=== PATIENT | female | born 1985 | race Caucasian/White ===

== ENCOUNTER → 2018-02-07 09:02 | Outpatient (CLI) | payer MEDICAID, SELFPAY ==
[2018-02-07 11:09] LABS: Anion Gap 5 (5-15); BUN 11 mg/dL (7-18); BUN/Creat Ratio 13.7 RATIO (10-20); Calcium,Total 8.9 mg/dL (8.5-10.1); Chloride 104 mmol/L (98-107); Cholesterol 184 mg/dL (200); EST Glomerular Filtration Rate 87 mL/min (>60); Est Glom Filt Rate - Afr Amer 105 mL/min (>60); Glucose 82 mg/dL (74-106); High Density Lipoprotein 47 mg/dL; Potassium 3.8 mmol/L (3.5-5.1); Sodium Level 137 mmol/L (136-145); Triglycerides 110 mg/dL; Very Low Density Lipoprotein 22 mg/dL (5-40)
== END ==
PROVIDERS: Family Provider Family Medicine; PCP Family Medicine; Visit Provider Family Medicine
DX: I10 Essential (primary) hypertension (principal)
CPT/HCPCS: 36415; 80048; 80061

== ENCOUNTER → 2018-08-15 08:26 | Outpatient (CLI) | payer MEDICAID, SELFPAY ==
[2017-03-28 05:05] VITALS: BMI 28.3
[2018-08-15 10:29] LABS: Anion Gap 8 (5-15); BUN 14 mg/dL (7-18); BUN/Creat Ratio 16.7 RATIO (10-20); Calcium,Total 8.9 mg/dL (8.5-10.1); Chloride 104 mmol/L (98-107); Creatinine, Serum 0.84 mg/dL (0.55-1.02); EST Glomerular Filtration Rate 82 mL/min (>60); Est Glom Filt Rate - Afr Amer 99 mL/min (>60); Glucose 80 mg/dL (74-106); Potassium 3.7 mmol/L (3.5-5.1); Sodium Level 140 mmol/L (136-145)
== END ==
PROVIDERS: Family Provider Family Medicine; PCP Family Medicine; Visit Provider Family Medicine
DX: I10 Essential (primary) hypertension (principal)
CPT/HCPCS: 36415; 80048

== ENCOUNTER → 2019-11-04 08:29 | Outpatient (CLI) | payer OTHER, MEDICAID, SELFPAY ==
[2017-03-28 05:05] VITALS: BMI 28.3
[2019-11-04 10:32] LABS: Anion Gap 7 (5-15); BUN 14 mg/dL (7-18); BUN/Creat Ratio 14.8 RATIO (10-20); Calcium,Total 9.1 mg/dL (8.5-10.1); Chloride 103 mmol/L (98-107); Cholesterol 182 mg/dL (200); Creatinine, Serum 0.94 mg/dL (0.55-1.02); EST Glomerular Filtration Rate 71 mL/min (>60); Est Glom Filt Rate - Afr Amer 86 mL/min (>60); Glucose 87 mg/dL (74-106); High Density Lipoprotein 53 mg/dL; Potassium 3.2 mmol/L (3.5-5.1); Sodium Level 139 mmol/L (136-145); Triglycerides 153 mg/dL; Very Low Density Lipoprotein 31 mg/dL (5-40)
== END ==
PROVIDERS: PCP Family Medicine; Referring Provider Family Medicine; Visit Provider Family Medicine
DX: I10 Essential (primary) hypertension (principal)
CPT/HCPCS: 36415; 80048; 80061

== ENCOUNTER → 2020-04-18 10:17 | Outpatient (CLI) | payer OTHER, SELFPAY ==
[2017-03-28 05:05] VITALS: BMI 28.3
[2020-04-18 13:21] LABS: Anion Gap 7 (5-15); BUN 14 mg/dL (7-18); BUN/Creat Ratio 18.9 RATIO (10-20); Calcium,Total 9.1 mg/dL (8.5-10.1); Chloride 102 mmol/L (98-107); Creatinine, Serum 0.74 mg/dL (0.55-1.02); EST Glomerular Filtration Rate 94 mL/min (>60); Est Glom Filt Rate - Afr Amer 113 mL/min (>60); Glucose 84 mg/dL (74-106); Potassium 3.7 mmol/L (3.5-5.1); Sodium Level 138 mmol/L (136-145)
== END ==
PROVIDERS: PCP Family Medicine; Referring Provider Family Medicine; Visit Provider Family Medicine
DX: I10 Essential (primary) hypertension (principal)
CPT/HCPCS: 36415; 80048

== ENCOUNTER → 2020-10-19 08:30 | Outpatient (CLI) | payer OTHER, SELFPAY ==
[2017-03-28 05:05] VITALS: BMI 28.3
[2020-10-19 10:30] LABS: Anion Gap 2 (5-15); BUN 15 mg/dL (7-18); BUN/Creat Ratio 18.4 RATIO (10-20); Calcium,Total 8.9 mg/dL (8.5-10.1); Chloride 107 mmol/L (98-107); Cholesterol 185 mg/dL (200); Creatinine, Serum 0.82 mg/dL (0.55-1.02); EST Glomerular Filtration Rate 84 mL/min (>60); Est Glom Filt Rate - Afr Amer 101 mL/min (>60); Glucose 86 mg/dL (74-106); High Density Lipoprotein 63 mg/dL; Potassium 3.6 mmol/L (3.5-5.1); Sodium Level 138 mmol/L (136-145); Triglycerides 65 mg/dL; Very Low Density Lipoprotein 13 mg/dL (5-40)
== END ==
PROVIDERS: PCP Family Medicine; Referring Provider Family Medicine; Visit Provider Family Medicine
DX: I10 Essential (primary) hypertension (principal)
CPT/HCPCS: 36415; 80048; 80061

== ENCOUNTER → 2021-04-17 08:32 | Outpatient (CLI) | payer OTHER, SELFPAY ==
[2017-03-28 05:05] VITALS: BMI 28.3
[2021-04-17 10:45] LABS: Anion Gap 9 (5-15); BUN 11 mg/dL (7-18); BUN/Creat Ratio 14.2 RATIO (10-20); Calcium,Total 9.1 mg/dL (8.5-10.1); Chloride 104 mmol/L (98-107); Cholesterol 199 mg/dL (200); Creatinine, Serum 0.78 mg/dL (0.55-1.02); EST Glomerular Filtration Rate 88 mL/min (>60); Est Glom Filt Rate - Afr Amer 107 mL/min (>60); Glucose 89 mg/dL (74-106); High Density Lipoprotein 64 mg/dL; Potassium 3.6 mmol/L (3.5-5.1); Sodium Level 138 mmol/L (136-145); Triglycerides 107 mg/dL; Very Low Density Lipoprotein 21 mg/dL (5-40)
== END ==
LOC: MFPLAB 08:33
PROVIDERS: PCP Family Medicine; Referring Provider Family Medicine; Visit Provider Family Medicine
DX: I10 Essential (primary) hypertension (principal)
CPT/HCPCS: 36415; 80048; 80061

== ENCOUNTER → 2022-04-25 | Outpatient (CLI) | payer OTHER, SELFPAY ==
[2022-05-01 13:24] LABS: HPV APTIMA, High Risk Negative (Negative)
== END | disposition home or self-care (01) ==
LOC: LABSPEC 11:54
PROVIDERS: Visit Provider Student in an Organized Health Care Education/Training Program
DX: Z12.4 Encounter for screening for malignant neoplasm of cervix (principal)
CPT/HCPCS: 87624; 88175; G0145

== ENCOUNTER → 2022-05-03 | Outpatient (CLI) | payer OTHER, SELFPAY ==
--- NOTE | 2022-05-03 09:21 | US_ITS ---
STUDY: ULTRASOUND BREAST - RIGHT REASON FOR EXAM: Female, 37 years old. Asymmetrical density in the upper outer quadrant of the right breast on mammogram. TECHNIQUE: Axial and longitudinal images of the RIGHT breast were performed with a high resolution ultrasound transducer. # OF IMAGES: 41 COMPARISON: Comparison is made with prior mammogram done earlier in the day. FINDINGS: RIGHT Breast: The upper outer quadrant of the right breast was examined with ultrasound. There is evidence of fibroglandular tissue. No solid or cystic masses seen. IMPRESSION: Unremarkable sonogram of the upper outer quadrant of the right breast. ASSESSMENT CATEGORY: BIRADS Category 1: Negative. A letter regarding these results will be sent to the patient by the facility within 30 days. Electronically Signed: Damien Lewis MD at 12:51 EDT , STUDY: ULTRASOUND BREAST - LEFT REASON FOR EXAM: Female, 37 years old. Palpable lump in the inferior central portion of the left breast. TECHNIQUE: Axial and longitudinal images of the LEFT breast were performed with a high resolution ultrasound transducer. # OF IMAGES: 41 COMPARISON: Comparison is made with prior mammogram done earlier today. FINDINGS: LEFT Breast: Sonographic imaging was performed along the inferior aspect of the left breast. No sonographic abnormality is seen. US/Breast Limited Unilateral IMPRESSION: No sonographic abnormality is seen. ASSESSMENT CATEGORY: BIRADS Category 1: Negative. A letter regarding these results will be sent to the patient by the facility within 30 days. Electronically Signed: Damien Lewis MD at 12:53 EDT ,
--- NOTE | 2022-05-03 09:21 | BI_ITS ---
MAMMOGRAPHY - BILATERAL DIAGNOSTIC REASON FOR EXAM: Female, 37 years old. Palpable lump in the inferior central portion of the left breast. PERTINENT HISTORY: Non-contributory. TECHNIQUE: Digital bilateral breast ashly (3D mammographic acquisition) in the CC and MLO projections. 2-D mediolateral oblique (MLO) and craniocaudad (CC) views of both breasts were obtained. CAD: Full Field Digital Mammography with Computer Added Detection was performed. COMPARISON: None. Baseline examination. FINDINGS: Breast Composition: The breasts are heterogeneously dense, which may obscure small masses. There are no dominant masses or suspicious calcifications. Asymmetrical breast tissue is seen in the upper lateral aspect of the right breast. Correlation with ultrasound recommended. No other significant abnormalities are identified. BI/DIAG MAMM W/CAD, BILAT IMPRESSION: Negative diagnostic mammogram. With the patient''s history of a palpable lump in the inferior central portion of the left breast, correlation with ultrasound is recommended. ASSESSMENT CATEGORY: BIRADS Category 0: Incomplete. Need additional imaging evaluation. A letter regarding these results will be sent to the patient by the facility within 30 days. Approximately 10% of breast cancers are not detected by mammography. A normal mammogram should not delay biopsy of a clinically suspicious abnormality. Electronically Signed: Damien Lewis MD at 10:47 EDT ,
== END | disposition home or self-care (01) ==
LOC: OPBI 09:16
PROVIDERS: PCP Family Medicine; Visit Provider Student in an Organized Health Care Education/Training Program
DX: N63.20 Unspecified lump in the left breast, unspecified quadrant (principal); R92.8 Other abnormal and inconclusive findings on diagnostic imaging of breast
CPT/HCPCS: 76642; 77062; 77066; G0279

== ENCOUNTER 2023-01-28 22:59 | Emergency (ER) | payer OTHER, SELFPAY ==
[2023-01-28 23:00] VITALS: BP 196/114; PULSE 67; RESP 18; TEMP 36.4; O2SAT 100; BMI 30.4
--- NOTE | 2023-01-28 23:28 | EDS_ITS ---
HPI HPI - GI History of Present Illness Chief Complaint: Abd Pain Narrative Narrative: 37-year-old female presenting with left upper quadrant/left flank pain. She states it started yesterday while she was working. It kind of came and went throughout the day. She states it is kind of a dull ache and feels like a pressure. She recalls that it feels like her gallbladder pain only is on the wrong side. She states the pain comes and goes. She states she is queasy at times. No fevers. No diarrhea or constipation. No urinary or vaginal complaints. No history of kidney stones. She had a tubal ligation so she is not concerned for . PFSH PFSH Home Medications multivitamin (Daily Multiple tablet) 1 ea PO DAILY 03/28/17 [History Last Taken Unknown] losartan 50 mg-hydrochlorothiazide 12.5 mg tablet 1 tab PO DAILY 01/28/23 [History Last Taken Unknown] Allergy/AdvReac Type Severity Reaction Status Date / Time No Known Allergies Allergy Verified 11/19/22 11:09 Social History Smoking Status: Never smoker ROS ROS ED Constitutional Constitutional ED: Denies chills or fever(s) ENT ENT ED: Denies rhinorrhea or sore throat Cardiovascular Cardiovascular: Denies chest pain or palpitations Respiratory/Chest Respiratory/Chest: Denies cough or dyspnea Gastrointestinal Gastrointestinal: Reports abdominal pain and nausea; Denies constipation or diarrhea Genitourinary Genitourinary ED: Denies dysuria or hematuria Musculoskeletal Musculoskeletal: Denies arthralgias or back pain Integumentary Denies abscess Neurologic Neurologic: Denies headache(s) or paresthesias Psychiatric Psychiatric: Denies anxiety or depression EXAM Physical Exam Const Vital Signs: 01/28/23 23:00 Temperature 97.5 F L Temperature Source Temporal Pulse Rate 67 Respiratory Rate 18 Blood Pressure 196/114 H Blood Pressure Mean 141 Pulse Ox 100 Oxygen Delivery Method Room Air Positive well nourished General Appearance ED: Negative for pallor HEENT Reports moist mucous membranes Eyes PERRL and EOMs intact bilaterally Resp normal respiratory effort Effort and Inspection: Negative for respiratory distress Cardio regular rate and regular rhythm GI Palpation: tender LUQ Back/Spine General Back: CVA tenderness left Neuro CN's II-XII intact bilaterally Sensorium / Orientation: alert Psych mental status grossly normal and thought process normal Skin General Skin Exam: Negative for jaundice or pallor MDM MDM MDM Narrative Medical decision making narrative: Patient presenting with left upper quadrant/flank pain. Differential includes UTI, pyelonephritis, kidney stone, diverticulitis, colitis, constipation, ovarian cyst, ovarian torsion. Patient declines analgesia and denies nausea medication. She states she does not want to be here but she is here at the behest of her . She is well-appearing. Vital signs are stable and she is afebrile. CBC to assess white blood cell count, hemoglobin, platelets, differential. CMP to assess liver function, renal function, glucose, electrolytes. Lipase to assess for pancreatitis. Urinalysis to assess for UTI and occult blood. CBC and CMP unremarkable. Lipase negative. Urinalysis negative for infection or occult blood. CT of the abdomen pelvis with IV contrast was obtained and shows a nonobstructing kidney stone as well as a recently ruptured ovarian cyst. Patient counseled on findings. I believe she stable for discharge home. She will declines any analgesia or antiemetics for home. Impression: 1. Ruptured ovarian cyst 2. Left flank pain 3. nausea 4. Nephrolithiasis Lab Data Labs: Laboratory Results - last 24 hr 01/28/23 01/28/23 01/28/23 23:34 23:34 23:34 WBC 9.8 RBC 4.27 Hgb 13.0 Hct 39.2 MCV 91.8 MCH 30.4 MCHC 33.2 RDW Std Deviation 40.2 RDW Coeff of Matt 12.1 Plt Count 265 MPV 9.2 Immature Gran % (Auto) 0.200 Neut % (Auto) 55.4 Lymph % (Auto) 34.9 Morton % (Auto) 7.7 Eos % (Auto) 1.4 Baso % (Auto) 0.4 Absolute Neuts (auto) 5.5 Absolute Lymphs (auto) 3.43 Nucleated RBC % 0 Sodium 142 Potassium 3.7 Chloride 108 H Carbon Dioxide 29.0 Anion Gap 5 BUN 18 Creatinine 0.76 Estim Creat Clear Calc 82.21 Est GFR (MDRD) Af Amer 108 Est GFR (MDRD) Non-Af 89 BUN/Creatinine Ratio 23.6 H Glucose 104 Calcium 9.2 Total Bilirubin 0.30 AST 16 ALT 26 Alkaline Phosphatase 41 L Total Protein 7.2 Albumin 3.7 Globulin 3.5 Albumin/Globulin Ratio 1.1 Lipase 26 Urine Color Yellow Urine Clarity Sl. Cloudy Urine pH 7.0 Ur Specific [place] 1.010 Urine Protein Negative Urine Glucose (UA) Normal Urine Ketones Negative Urine Occult Blood Negative Urine Nitrite Negative Urine Bilirubin Negative Urine Urobilinogen Normal Ur Leukocyte Esterase Negative Urine RBC 0 SEEN Urine WBC 0 SEEN Ur Squamous Epith Cells 0-5 SEEN Amorphous Sediment 1+ Urine Bacteria 2+ Urine Mucus 0 SEEN Radiography Diagnostic Testing: Clinical Impression(s) from Imaging Studies Abdomen/Pelvis CT 01/29/23 00:04 IMPRESSION: 1. Recently ruptured left ovarian follicle with trace free pelvic fluid. Adjacent small simple appearing 2.5 cm left ovarian cyst versus dominant follicle. No additional follow-up recommended at this time. 2. Nonobstructing right nephrolithiasis. 3. Other nonurgent findings within body of report. Electronically Signed: Jesús Rose MD at 1:09 EDT , Discharge Plan Triage Chief Complaint: Abd Pain ED Provider: Tay Luna Dx/Rx/DC Orders Instructions: ED Ovarian Cyst Prescriptions: No Action multivitamin [Daily Multiple] 1 EACH tablet 1 ea PO DAILY losartan-hydrochlorothiazide 50-12.5 mg tablet 1 tab PO DAILY Primary Care Provider: Dewey Enriquez Referrals: Dewey Enriquez MD [Primary Care Provider] - Disposition Disposition: Home, Self Care
[2023-01-28 23:41] LABS: Mucous, Urine 0 SEEN /hpf (<or=2+); Red Blood Cells-Urine 0 SEEN /hpf (0-5); White Blood Cells 0 SEEN /hpf (0-5)
[2023-01-28 23:42] LABS: Absolute Lymphocyte Count 3.43 X10^3/uL (0.83-4.51); Absolute Neutrophil Count 5.5 X10^3/uL (2.0-7.7); Basophil# 0.04 X10^3/uL; Basophil% 0.4 % (0-1); Eosinophil# 0.14 X10^3/uL; Eosinophils% 1.4 % (0-5); Hematocrit 39.2 % (37-47); Lymphocyte # 3.43 X10^3/ul (0.83-4.51); Lymphocyte % 34.9 % (19-41); Mean Corp Hgb Conc 33.2 g/dL (32-36); Mean Corpuscular Hgb 30.4 pg (27.0-32.0); Mean Corpuscular Volume 91.8 fL (81-99); Mean Platelet Vol. 9.2 fl (6.2-12.0); Monocyte# 0.76 X10^3/uL; Monocyte% 7.7 % (0-10); NRBC Flagged by Analyzer 0 % (0-5); Neutrophil # 5.45 X10^3/uL (2.7-7.7); Neutrophil % 55.4 % (47-70); Platelet Count 265 K/mm3 (150-450); RBC Distribution Width CV 12.1 % (11.6-14.6); RBC Distribution Width SD 40.2 fl (35.1-43.9); Red Blood Count 4.27 M/mm3 (4.2-5.4); White Blood Count 9.8 K/mm3 (4.4-11.0)
[2023-01-28 23:43] LABS: Color, Urine Yellow (Yellow); Glucose, Dipstick Normal (Normal); Ketone-Dipstick Negative (Negative); Leukocyte Esterase-Dipstick Negative /ul (Negative); Nitrite-Dipstick Negative (Negative); Occult Blood-Urine Negative /ul (Negative); Protein-Dipstick Negative (Negative); Urine Bilirubin Dipstick Negative (Negative); Urine Clarity Sl. Cloudy (Clear); Urine Urobilinogen Normal (Normal)
[2023-01-28 23:51] LABS: Amorphous Sediment 1+; Bacteria 2+ /hpf (None Seen); Squamous Epithelial Cells - UA 0-5 SEEN /hpf (5-10)
[2023-01-29 00:01] LABS: ALB/GLOB Ratio 1.1 RATIO (0.9-2.4); AST(SGOT) 16 U/L (15-37); Alanine Aminotransfer ALT/SGPT 26 U/L (13-56); Albumin, Serum 3.7 g/dL (3.2-5.0); Alkaline Phosphatase 41 U/L (45-117); Anion Gap 5 (5-15); BUN 18 mg/dL (7-18); BUN/Creat Ratio 23.6 RATIO (10-20); Calcium,Total 9.2 mg/dL (8.5-10.1); Chloride 108 mmol/L (98-107); Creatinine, Serum 0.76 mg/dL (0.55-1.02); EST Glomerular Filtration Rate 89 mL/min (>60); Est Glom Filt Rate - Afr Amer 108 mL/min (>60); Estimated Creatinine Clearance 82.21 ml/min; Globulin 3.5 g/dL (2.2-4.2); Glucose 104 mg/dL (74-106); Lipase 26 U/L (13-75); Potassium 3.7 mmol/L (3.5-5.1); Protein, Total 7.2 g/dL (6.4-8.2); Sodium Level 142 mmol/L (136-145)
--- NOTE | 2023-01-29 00:04 | CT_ITS ---
INDICATION: luq pain EXAMINATION: CT Abdomen And Pelvis W/ Contrast Injection TECHNIQUE: Helically acquired images were obtained of the abdomen and pelvis following IV contrast. 2-D reconstructions reviewed. A radiation dose optimization technique was used for this scan. IV Contrast dosage and agent: 100 cc [id number] Oral contrast: None. COMPARISON: None. FINDINGS: LOWER CHEST: No acute findings within the imaged lung bases. Heart size within normal limits. LIVER: Homogeneous. No concerning lesion. GALLBLADDER AND BILIARY TREE: No radiopaque gallstones or pericholecystic edema demonstrated. Gallbladder phrygian cap noted. No significant biliary ductal dilation. PANCREAS: No discrete mass or peripancreatic edema. SPLEEN: Normal size without focal cystic or solid mass. ADRENAL GLANDS: Unremarkable. KIDNEYS AND URETERS: Normal renal size and position. No perinephric edema or hydronephrosis. 4 mm calcified stone within interpolar calyx right kidney. No ureteral stones identified. Small calcified pelvic phleboliths noted. Couple small, simple appearing bilateral renal cysts requiring no additional follow-up. PERITONEUM: Trace physiologic fluid within pelvis. No peritoneal free air detected. RETROPERITONEUM: No retroperitoneal mass or pathologic fluid collection. BOWEL: Normal appendix posterior to cecum within right lower quadrant. No bowel obstruction or significant bowel thickening. No focal inflammatory change. LYMPH NODES: No enlarged mesenteric or retroperitoneal lymph nodes. VESSELS: No acute findings. No abdominal aortic aneurysm. URINARY BLADDER: Unremarkable as visualized. REPRODUCTIVE ORGANS: Crenulated, rim-enhancing 1.9 cm left adnexal cystic lesion compatible with involuted follicle. Adjacent ovoid low-attenuation 2.5 cm left adnexal cyst with imperceptible wall. ABDOMINAL WALL: Small umbilical fat hernia noted. BONES: Intact with no suspicious osseous lesion. CT/Abdomen/Pelvis W IV Cont ONLY IMPRESSION: 1. Recently ruptured left ovarian follicle with trace free pelvic fluid. Adjacent small simple appearing 2.5 cm left ovarian cyst versus dominant follicle. No additional follow-up recommended at this time. 2. Nonobstructing right nephrolithiasis. 3. Other nonurgent findings within body of report. Electronically Signed: Jesús Rose MD at 1:09 EDT ,
== END 2023-01-29 01:33 | disposition home or self-care (01) ==
PROVIDERS: Emergency Provider Student in an Organized Health Care Education/Training Program; PCP Family Medicine; Visit Provider Student in an Organized Health Care Education/Training Program
DX: N83.02 Follicular cyst of left ovary (principal); N20.0 Calculus of kidney; R11.0 Nausea; R10.9 Unspecified abdominal pain
CPT/HCPCS: 74177; 80053; 81001; 83690; 85025; 99282; Q9967; A4216

== ENCOUNTER → 2023-10-14 | Outpatient (CLI) | payer OTHER, SELFPAY ==
--- OUTSIDE RECORDS SUMMARY | 2023-10-14 08:58 | XMS RPT_ITS | CCD ---
Author Name Unknown Address [address] [place] [address] Organization [facility] Care Team Providers Care 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 Name Role Phone Dewey Packer MD Primary Care Provider DEWEY PACKER Primary Care Unavailable SHELLY VENTURA Referring Unavailable DEWEY PACKER Primary Care Unavailable SHELLY VENTURA Attending Unavailable Medications Completed/Discontinued Medications Medication Drug Class(es) Dates Sig (Normalized) Sig (Original) ASHWAGANDHA EXTRACT ORAL (7 sources) ASHWAGANDHA EXTR ACT ORAL Take by mouth. 0 Active Problems Active Problems Problem Classification Problem Date Documented Date Episodic/Chronic Essential hypertension (7 sources) Hypertensive disorder; Translations: [Essential (primary) hypertension] Onset: 10-25-2010 10-25-2010 Chronic Immunizations and screening for infectious disease (3 sources) Patient encounter status; Translations: [Encounter for screening for human papillomavirus (HPV)] 07-29-2023 Episodic Other screening for suspected conditions (not mental disorders or infectious disease) (4 sources) Cancer cervix screening status; Translations: [Encounter for screening for malignant neoplasm of cervix] Onset: 07-30-2023 07-29-2023 Episodic Past or Other Problems Problem Classification Problem Date Documented Date Episodic/Chronic Biliary tract disease (7 sources) Cholelithiasis without obstruction; Translations: [Calculus of gallbladder without cholecystitis without obstruction] Onset: 03-28-2017 03-28-2017 Episodic Results Test Name Value Interpretation Reference Range Facil ity Vital Signs Date Time Vital Sign Value Performing Clinician Facanayeli literika 07-29-2023 13:57-0500 Body height 160 cm Shelly Ventura SCRAPER MEAT.RUG SETTER AXMINSTER Work Phone: [facility] 07-29-2023 13:57-0500 Body weight 80.29 kg Shelly Ventura SCRAPER MEAT.NAYA Work Phone: [facility] 07-29-2023 13:57-0500 Diastolic blood pressure 102 mm[Hg] Shelly Ventura SCRAPER MEAT.NAYA Work Phone: [facility] 07-29-2023 13:57-0500 Systolic blood pressure 158 mm[Hg] Shelly Ventura SCRAPER MEAT.NAYA Work Phone: [facility] Encounters Encounter Date Encounter Type Care Provider Facility Start: 08-12-2023 Telephone encounter Shelly mckinley SCRAPER MEAT.NAYA Work Phone: OB/Gynecology Procedures Date Procedure Procedure Detail Performing Clinician Start: 07-30-2023 Screening digital br east tomosynthesis bi Shelly Ventura SCRAPER MEAT.NAYA Work Phone: Plan of Treatment Date Care Activity Detail Author Start: 07-29-2028 HPV Testing HPV Testing [facility] Start: 07-29-2028 Pap Testing Pap Testing [facility] Start: 02-08-2028 Urine microalbumin profile DTaP,Tdap,Td Vaccine (8 - Td or Tdap) [facility] Start: 07-30-2024 Mammography Mammogram Screening [facility] Start: 05-10-2023 Influenza vaccination [facility] Start: 2023 Mammography Mammogram Screening [facility] Start: 09-09-2022 Depression Assessment Depression Assessment [facility] Start: 04-20-2019 HPV Testing HPV Testing [facility] Start: 04-20-2019 Pap Testing Pap Testing [facility] Start: 2001 Annual PCP Team Chronic Disease Visit Annual PCP Team Chronic Disease Visit [facility] Start: 2001 BP Controlled (<130/80) BP Controlled (<130/80) [facility] Start: 2001 Hepatitis C Screening Hepatitis C Screening [facility] Start: 2001 HIV Screening HIV Screening [facility] Start: 1983 Covid-19 Vaccine (#1) Covid-19 Vaccine (#1) [facility] End: 08-29-2024 JOVAN DIAGNOSTIC LEFT JOVAN DIAGNOSTIC LEFT Radiology Routine Abnormal mammogram 1 Occurrences starting 07/31/2023 until 08/29/2024 [facility] Work Phone: Immunizations Immunization Date Immunization Notes Care Provider Lisa milligan 08-18-2016 influenza, seasonal, injectable Shelly Arkdale SCRAPER MEAT.RUG SETTER AXMINSTER Work Phone: [facility] 08-18-2016 influenza virus vacc ine, unspecified formulation Shelly Arkdale SCRAPER MEAT.RUG SETTER AXMINSTER Work Phone: [facility] 06-28-2014 influenza, seasonal, injectable Shelly Arkdale SCRAPER MEAT.RUG SETTER AXMINSTER Work Phone: [facility] 02-06-2013 tetanus toxoid, redu corinne diphtheria toxoid, and acellular pertussis vaccine, adsorbed Shelly Mariya SCRAPER MEAT.RUG SETTER AXMINSTER Work Phone: [facility] 11-08-1997 hepatitis B vaccine, pediatric or pediatric/adolescent dosage Shelly Arkdale SCRAPER MEAT.RUG SETTER AXMINSTER Work Phone: [facility] 04-29-1997 hepatitis B vaccine, pediatric or pediatric/adolescent dosage Shelly Arkdale SCRAPER MEAT.RUG SETTER AXMINSTER Work Phone: [facility] 03-30-1997 hepatitis B vaccine, pediatric or pediatric/adolescent dosage Shelly Arkdale SCRAPER MEAT.RUG SETTER AXMINSTER Work Phone: [facility] 02-25-1995 measles, mumps and rubella virus vaccine Shelly Mariya SCRAPER MEAT.RUG SETTER AXMINSTER Work Phone: [facility] 01-31-1988 diphtheria, tetanus toxoids and pertussis vaccine Shelly Arkdale SCRAPER MEAT.RUG SETTER AXMINSTER Work Phone: [facility] 06-09-1985 measles, mumps and rubella virus vaccine Shelly Arkdale SCRAPER MEAT.RUG SETTER AXMINSTER Work Phone: [facility] 11-17-1984 diphtheria, tetanus toxoids and pertussis vaccine Shelly Arkdale SCRAPER MEAT.RUG SETTER AXMINSTER Work Phone: [facility] 11-17-1984 trivalent poliovirus vaccine, live, oral Shelly Arkdale SCRAPER MEAT.RUG SETTER AXMINSTER Work Phone: [facility] 1983 diphtheria, tetanus toxoids and pertussis vaccine Shelly Arkdale SCRAPER MEAT.RUG SETTER AXMINSTER Work Phone: [facility] 1983 diphtheria, tetanus toxoids and pertussis vaccine Shelly Arkdale SCRAPER MEAT.RUG SETTER AXMINSTER Work Phone: [facility] 1983 trivalent poliovirus vaccine, live, oral Shelly Arkdale SCRAPER MEAT.RUG SETTER AXMINSTER Work Phone: [facility] 1983 diphtheria, tetanus toxoids and pertussis vaccine Shelly Arkdale SCRAPER MEAT.RUG SETTER AXMINSTER Work Phone: [facility] 1983 trivalent poliovirus vaccine, live, oral Shelly Mairya SCRAPER MEAT.RUG SETTER AXMINSTER Work Phone: [facility] 1983 trivalent poliovirus vaccine, live, oral Shelly Mariya SCRAPER MEAT.RUG SETTER AXMINSTER Work Phone: [facility] Payers Date Payer Category Payer Unknown MMO MMO [employer] PPO [id number] 2023-Present [phone] [address] [place] [address] PPO [id number] 2023 Unknown [id number] Social History Date Type Detail Facility [facility]: [facility] Start: 03-05-2012 Tobacco use and exposure Smoke less tobacco non-user [facility] Start: 07-29-2023 Alcohol intake Current drinke r of alcohol (finding) [facility] Start: 07-29-2023 History of Social function [facility] Start: 07-29-2023 Tobacco use panel [facility] National Score (1-10 0), lower number is lower risk 42 [facility] Start: 1983 Sex Assigned At Not on file [facility] Clinical Notes 02-17-2014 to 08-10-2023 Letter - Coordinator, Mammography - 08/10/2023 1:08 PM ESTLetter - Coordinator, Mammography - 07/31/2023 6:49 AM Musa Hare Mammo Tech - 07/30/2023 8:50 AM EST Note Date & Type Note Facility 08-10-2023 Miscellaneous Notes August 12, 2023 PID: [id number] Yolis Varela [address] [place] [address] Dear Johan Varela, Your prior imaging studies have arrived and been compared to your current study. We are pleased to inform you that the results of your recent breast imaging exam on 07/30/2023 are normal. Your mammogram demonstrates that you have dense breast tissue, which could hide abnormalities. Dense breast tissue, in and of itself, is a relatively common condition. Therefore, this information is not provided to cause undue concern; rather, it is to raise your awareness and promote discussion with your health care provider regarding the presence of dense breast tissue in addition to other risk factors. Early detection of cancer is very important. We also understand recommendations regarding breast cancer screening are controversial. Please discuss with your primary care provider which strategy is best for you and whether a mammogram is right for you. Your imaging studies and report will be kept on file at [facility] as part of your permanent medical record and are available for your continuing care. Thank you for allowing us to help in meeting your health care needs. Sincerely, Dr. Mattson Interpreting Radiologist [facility] (Normal Old Films compared) documented in this encounter [facility] 07-31-2023 Miscellaneous Notes July 31, 2023 PID: [id number] Yolis Varela [address] [place] [address] Dear Ms. Varela, Your breast imaging exam 07/30/2023 showed a possible finding that may require additional imaging studies for a complete evaluation. However, we recognize you have prior imaging studies at facilities other than [facility], and would like the opportunity to compare your recent imaging with those studies to evaluate for any change. At this time, we have requested your prior studies. Your mammogram demonstrates that you have dense breast tissue, which could hide abnormalities. Dense breast tissue, in and of itself, is a relatively common condition. Therefore, this information is not provided to cause undue concern; rather, it is to raise your awareness and promote discussion with your health care provider regarding the presence of dense breast tissue in addition to other risk factors. If/when your prior studies arrive, a final report will be sent to your healthcare provider and/or you. In addition, you will receive a new result letter and or phone call If you need additional imaging. If we do not receive prior studies within 30 days of your exam, you will receive a reminder letter and or phone call to schedule your diagnostic imaging. Your imaging studies and reports are kept on file at [facility] as part of your permanent medical record, and are available for your continuing care. If you have any questions or concerns, please call [phone]. Thank you for choosing [facility] for your imaging needs. Sincerely, Dr. Mattson Interpreting Radiologist [facility] (Old Films) documented in this encounter [facility] 07-30-2023 Note HNO ID: [id number] Author: Musa Rodrigues Mammo Tech Service: ? Author Type: Technologist Type: Progress Notes Filed: 07/30/2023 8:41 AM Note Text: Radiology Service Progress Note PATIENT NAME: Yolis VARELA DATE OF SERVICE: July 30, 2023 TIME: 8:40 AM PATIENT IDENTITY VERIFICATION COMPLETED USING TWO (2) IDENTIFIERS: Name and Date of confirmed by patient verbally. FALL SCREENING: Has the patient had 2 falls in the last year or 1 fall with injury or currently using an Ambulatory Assistive Device (Walker, Cane, Wheelchair, Crutches, etc.)? No PATIENT GENDER DATA: Female. status: : No status: NO. PATIENT RELEVANT IMPLANT DATA REVIEWED: Not Applicable RADIOLOGY DEPARTMENT: Mammography PERIPHERAL IV DATA: Not applicable SIGNED BY: Benjamin Whitlock July 30, 2023 8:40 AM [facility] 07-30-2023 History of Presen t illness Narrative Radiology Service Progress Note PATIENT NAME: Yolis VARELA DATE OF SERVICE: July 30, 2023 TIME: 8:40 AM PATIENT IDENTITY VERIFICATION COMPLETED USING TWO (2) IDENTIFIERS: Name and Date of confirmed by patient verbally. FALL SCREENING: Has the patient had 2 falls in the last year or 1 fall with injury or currently using an Ambulatory Assistive Device (Walker, Cane, Wheelchair, Crutches, etc.)? No PATIENT GENDER DATA: Female. status: : No status: NO. PATIENT RELEVANT IMPLANT DATA REVIEWED: Not Applicable RADIOLOGY DEPARTMENT: Mammography PERIPHERAL IV DATA: Not applicable SIGNED BY: Benjamin Whitlock July 30, 2023 8:40 AM documented in this encounter [facility] 07-29-2023 Note HNO ID: [id number] Author: Shelly Ventura APRN.RUG SETTER AXMINSTER Service: ? Author Type: Nurse Practitioner Type: Progress Notes Filed: 07/29/2023 2:45 PM Note Text: Yolis is a 38 year old who presents for an annual gynecologic exam with complaints, menopausal symptoms. Having some night sweat and mood irritability. She is using some herbal supplement which seem to be helping. Menses: cycles every 25-30 days and 5 days of flow. Contraception: tubal sterilization HPV vaccine: No Last Pap: 04/27/2014 normal HPV: 04/23/2014 negative History of abnormal pap: No Last mammogram: ense breast tissue Sexually active: Yes Pain with intercourse: No Postcoital bleeding: No Hot flashes: No Night sweats: Yes Vaginal dryness: No OB History T1 L2 SAB2 IAB0 Ectopic0 Multiple0 Live Births2 Administrative Director History LMP: 07/01/2023 (Exact Date), Having periods Age at Menarche: Age at First : Age at Menopause: Administrative Director History Comments: Sexual Activity: Yes; Male Contraception: Tubal Ligation PAST MEDICAL HISTORY Diagnosis Date Hypertension Migraine Pilonidal cyst 2013 in office procedure. PAST SURGICAL HISTORY Procedure Laterality Date CYSTOURETHROSCOPY Cystoscopy for suspected kidney stone DILATION AND CURETTAGE DXAND/THER NONOBSTETRIC Dilation AND curettage TUBAL LIGATION, FAMILY HISTORY Problem Relation Age of Onset Lipids Mother Hypertension Mother Osteoporosis Mother Crohn's Disease Mother Lipids Father Osteoporosis Maternal Grandmother Lipids Paternal Grandmother Heart Paternal Grandfather SD Hypertension Paternal Grandfather Crohn's Disease Son Lipids Paternal Aunt Hypertension Paternal Aunt Hypertension Paternal Uncle Breast Cancer Other MATERNAL CANCER SOCIAL HISTORY Social History Tobacco Use Smoking status: Never Smokeless tobacco: Never Vaping Use Vaping Use: Never used Substance Use Topics Alcohol use: Yes Comment: RARELY BUT NOT WHILE Drug use: No REVIEW OF SYSTEMS Abdomen: No abdominal pain, nausea, vomiting, diarrhea, or constipation. No bloating, early satiety, indigestion, or increased flatulence. Bladder: No dysuria, gross hematuria, urinary frequency, urinary urgency, or incontinence. Breast: No breast lumps, nipple d/c, overlying skin changes, redness or skin retraction. Allergies and current medication updated:Yes EXAM: BP 158/102 Ht 5' 3 (1.60m) Wt 177 lb (80.3kg) LMP 07/01/2023 BMI 31.36 kg/(m2). GENERAL: pleasant, female in no apparent distress HEENT: Normocephalic, atraumatic, mucus membranes moist, and no lesions NECK: Supple, full range of motion, no adenopathy, and thyroid normal DERMATOLOGY: Normal, without lesions, non-icteric, and non-hirsute BREAST: soft, non-tender, symmetric, no dominant mass, normal nipple-areolar complex, no lymphadenopathy, and no nipple discharge CHEST: Normal inspiratory effort ABDOMEN: soft, non-tender, and no masses PELVIC: external genitalia normal, normal Bartholin's glands, urethra, Brilliant's glands, no vulvar lesions, no cervical lesions, good vaginal support, physiologic discharge present, normal appearing perineal body and perianal region BIMANUAL: uterus normal size, shape and consistency, no adnexal masses, and non-tender RECTOVAGINAL: deferred. NEURO: alert and oriented x3,exam grossly non-focal EXTREMITIES: normal ASSESSMENT/PLAN: 1) Health maintenance: Pap done with HPV. Mammogram ordered. Nutrition, exercise and routine health maintenance exams reviewed. Calcium/Vitamin D supplementation information provided. 2) Contraception: tubal sterilization. Contraceptive options reviewed and information provided. 3) STD screening: Declined STD check. 4) Follow up one year or sooner as needed Shelly Ventura APRN.[facility] 07-29-2023 History of Presen t illness Narrative Yolis is a 38 year old who presents for an annual gynecologic exam with complaints, menopausal symptoms. Having some night sweat and mood irritability. She is using some herbal supplement which seem to be helping. Menses: cycles every 25-30 days and 5 days of flow. Contraception: tubal sterilization HPV vaccine: No Last Pap: 04/27/2014 normal HPV: 04/23/2014 negative History of abnormal pap: No Last mammogram: ense breast tissue Sexually active: Yes Pain with intercourse: No Postcoital bleeding: No Hot flashes: No Night sweats: Yes Vaginal dryness: No OB History T1 L2 SAB2 IAB0 Ectopic0 Multiple0 Live Births2 Administrative Director History LMP: 07/01/2023 (Exact Date), Having periods Age at Menarche: Age at First : Age at Menopause: Administrative Director History Comments: Sexual Activity: Yes; Male Contraception: Tubal Ligation PAST MEDICAL HISTORY Diagnosis Date Hypertension Migraine Pilonidal cyst 2013 in office procedure. PAST SURGICAL HISTORY Procedure Laterality Date CYSTOURETHROSCOPY Cystoscopy for suspected kidney stone DILATION & CURETTAGE DX&/THER NONOBSTETRIC Dilation & curettage TUBAL LIGATION, FAMILY HISTORY Problem Relation Age of Onset Lipids Mother Hypertension Mother Osteoporosis Mother Crohn's Disease Mother Lipids Father Osteoporosis Maternal Grandmother Lipids Paternal Grandmother Heart Paternal Grandfather SD Hypertension Paternal Grandfather Crohn's Disease Son Lipids Paternal Aunt Hypertension Paternal Aunt Hypertension Paternal Uncle Breast Cancer Other MATERNAL CANCER SOCIAL HISTORY Social History Tobacco Use Smoking status: Never Smokeless tobacco: Never Vaping Use Vaping Use: Never used Substance Use Topics Alcohol use: Yes Comment: RARELY BUT NOT WHILE Drug use: No REVIEW OF SYSTEMS Abdomen: No abdominal pain, nausea, vomiting, diarrhea, or constipation. No bloating, early satiety, indigestion, or increased flatulence. Bladder: No dysuria, gross hematuria, urinary frequency, urinary urgency, or incontinence. Breast: No breast lumps, nipple d/c, overlying skin changes, redness or skin retraction. Allergies and current medication updated:Yes EXAM: BP 158/102 Ht 5' 3 (1.60m) Wt 177 lb (80.3kg) LMP 07/01/2023 BMI 31.36 kg/(m^2). GENERAL: pleasant, female in no apparent distress HEENT: Normocephalic, atraumatic, mucus membranes moist, and no lesions NECK: Supple, full range of motion, no adenopathy, and thyroid normal DERMATOLOGY: Normal, without lesions, non-icteric, and non-hirsute BREAST: soft, non-tender, symmetric, no dominant mass, normal nipple-areolar complex, no lymphadenopathy, and no nipple discharge CHEST: Normal inspiratory effort ABDOMEN: soft, non-tender, and no masses PELVIC: external genitalia normal, normal Bartholin's glands, urethra, Brilliant's glands, no vulvar lesions, no cervical lesions, good vaginal support, physiologic discharge present, normal appearing perineal body and perianal region BIMANUAL: uterus normal size, shape and consistency, no adnexal masses, and non-tender RECTOVAGINAL: deferred. NEURO: alert and oriented x3,exam grossly non-focal EXTREMITIES: normal ASSESSMENT/PLAN: 1) Health maintenance: Pap done with HPV. Mammogram ordered. Nutrition, exercise and routine health maintenance exams reviewed. Calcium/Vitamin D supplementation information provided. 2) Contraception: tubal sterilization. Contraceptive options reviewed and information provided. 3) STD screening: Declined STD check. 4) Follow up one year or sooner as needed Shelly Ventura APRN.RUG SETTER AXMINSTER documented in this encounter [facility] documented as of this encounter (statuses as of 07/30/2023) [facility]06-[facility]-2014 History of Past illness Narrative* Problem Noted Date Diagnosed Date Resolved Date Pilonidal cyst with abscess 02/17/2014 03/28/2017 Supervision of other normal 08/16/2006 02/09/2011 documented as of this encounter (statuses as of 07/31/2023) [facility] History of Past illness Narrative* Problem Noted Date Diagnosed Date Resolved Date Pilonidal cyst with abscess 02/17/2014 03/28/2017 Supervision of other normal 08/16/2006 02/09/2011 documented as of this encounter (statuses as of 07/31/2023) [facility] History of Past illness Narrative* Problem Noted Date Diagnosed Date Resolved Date Pilonidal cyst with abscess 02/17/2014 03/28/2017 Supervision of other normal 08/16/2006 02/09/2011 documented as of this encounter (statuses as of 07/31/2023) [facility] History of Past illness Narrative* Problem Noted Date Diagnosed Date Resolved Date Pilonidal cyst with abscess 02/17/2014 03/28/2017 Supervision of other normal 08/16/2006 02/09/2011 documented as of this encounter (statuses as of 08/02/2023) [facility] History of Past illness Narrative* Problem Noted Date Diagnosed Date Resolved Date Pilonidal cyst with abscess 02/17/2014 03/28/2017 Supervision of other normal 08/16/2006 02/09/2011 documented as of this encounter (statuses as of 08/12/2023) [facility] History of Past illness Narrative* Problem Noted Date Diagnosed Date Resolved Date Pilonidal cyst with abscess 02/17/2014 03/28/2017 Supervision of other normal 08/16/2006 02/09/2011 documented as of this encounter (statuses as of 08/13/2023) [facility] Diagnosis Encounter for gynecological examination (general) (routine) without abnormal findings- Primary Screening for cervical cancer Screening for malignant neoplasm of the cervix Encounter for screening for human papillomavirus (HPV) Special screening examination for human papillomavirus (HPV) Encounter for screening mammogram for breast cancer [facility] Diagnosis Encounter for gynecological examination (general) (routine) without abnormal findings Encounter for screening mammogram for breast cancer [facility]* Diagnosis Abnormal mammogram- Primary Abnormal mammogram, unspecified [facility]* Diagnosis Abnormal mammogram- Primary Abnormal mammogram, unspecified documented in this encounter [facility] for referral (narrative)* Diagnostic Procedure Only (Routine) - Authorized Specialty Diagnoses / Procedures Referred By Contac t Referred To Contact [facility] Diagnoses Encounter for gynecological examination (general) (routine) without abnormal findings Encounter for screening mammogram for breast cancer Procedures JOVAN SCREENING W ATIYA SCREENING DIGITAL BREAST TOMOSYNTHESIS BI SCREENING MAMMOGRAPHY BI 2-VIEW BREAST INC Shelly Chacon APRN.RUG SETTER AXMINSTER [address] [place] [address] [facility] [address] [place] [address] Referral ID Status Reason Start Date Expiration Date Visits Requested Visits Authorized [id number] Authorized Auto-Generat ed Referral 3 08/27/2024 1 1 [facility] for referral (narrative)* Diagnostic Procedure Only (Routine) - Pending Review Specialty Diagnoses / Procedures Referred By Contac t Referred To Contact [facility] Diagnoses Abnormal mammogram Procedures JOVAN DIAGNOSTIC LEFT DIAGNOSTIC MAMMOGRAPHY COMPUTER-AIDED DETCJ UNI Shelly Ventura APRN.RUG SETTER AXMINSTER [address] [place] [address] [facility] [address] [place] [address] Referral ID Status Reason Start Date Expiration Date Visits Requested Visits Authorized [id number] Pending Review Auto-Generat ed Referral 3 08/29/2024 1 1 * Diagnostic Procedure Only (Routine) - Pending Review Specialty Diagnoses / Procedures Referred By Dee t Referred To Contact [facility] Diagnoses Abnormal mammogram Procedures US BREAST LTD LEFT US BREAST UNI REAL TIME WITH IMAGE LIMITED Shelly Ventura APRN.RUG SETTER AXMINSTER [address] [place] [address] [facility] [address] [place] [address] Referral ID Status Reason Start Date Expiration Date Visits Requested Visits Authorized [id number] Pending Review Auto-Generat ed Referral 3 08/29/2024 1 1 [facility] for referral (narrative)* Diagnostic Procedure Only (Routine) - Pending Review Specialty Diagnoses / Procedures Referred By Contac t Referred To Contact [facility] Diagnoses Abnormal mammogram Procedures US BREAST LTD LEFT US BREAST UNI REAL TIME WITH IMAGE LIMITED Shelly Ventura APRN.CNP [address] [place] [address] [facility] Imaging [address] [place] [address] Referral ID Status Reason Start Date Expiration Date Visits Requested Visits Authorized [id number] Pending Review Auto-Generat ed Referral 08/12/2023 09/10/2024 1 1 * Diagnostic Procedure Only (Routine) - Pending Review Specialty Diagnoses / Procedures Referred By Dee t Referred To Contact [facility] Diagnoses Abnormal mammogram Procedures JOVAN DIAGNOSTIC LEFT DIAGNOSTIC MAMMOGRAPHY COMPUTER-AIDED DETCJ UNI Shelly Ventura APRN.RUG SETTER [employer] [address] [place] [address] [facility] [address] [place] [address] Referral ID Status Reason Start Date Expiration Date Visits Requested Visits Authorized [id number] Pending Review Auto-Generat ed Referral 08/12/2023 09/10/2024 1 1 [facility] Diagnostic Procedure Only (Routine) - Closed Specialty Diagnoses / Procedures Referred By Dee t Referred To Contact [facility] Diagnoses Encounter for gynecological examination (general) (routine) without abnormal findings Encounter for screening mammogram for breast cancer Procedures JOVAN SCREENING W ATIYA SCREENING DIGITAL BREAST TOMOSYNTHESIS BI SCREENING MAMMOGRAPHY BI 2-[facility] Shelly Ventura APRN.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 [employer] [address] [place] [address] [facility] [address] [place] [address] Referral ID Status Reason Start Date Expiration Date V isits Requested Visits Authorized [id number] Closed Auto-Generate d Referral 07/29/2023 08/27/2024 1 1 [facility] Summary Purpose Family History No Family History Records Found Advance Directives No Advanced Directives Records Found Additional Source Comments Source Comments (unrecognize d section and content) In the event this informatio n is protected by the Federal Confidentiality of Alcohol and Drug Abuse Patient Records regulations: The Federal rules restrict any use of the information to criminally investigate or prosecute any alcohol or drug abuse patient.[facility] the event this information is protected by the Federal Confidentiality of Alcohol and Drug Abuse Patient Records regulations: The Federal rules restrict any use of the information to criminally investigate or prosecute any alcohol or drug abuse patient.[facility] the event this information is protected by the Federal Confidentiality of Alcohol and Drug Abuse Patient Records regulations: The Federal rules restrict any use of the information to criminally investigate or prosecute any alcohol or drug abuse patient.[facility] the event this information is protected by the Federal Confidentiality of Alcohol and Drug Abuse Patient Records regulations: The Federal rules restrict any use of the information to criminally investigate or prosecute any alcohol or drug abuse patient.[facility] the event this information is protected by the Federal Confidentiality of Alcohol and Drug Abuse Patient Records regulations: The Federal rules restrict any use of the information to criminally investigate or prosecute any alcohol or drug abuse patient.[facility] HealthIn the event this information is protected by the Federal Confidentiality of Alcohol and Drug Abuse Patient Records regulations: The Federal rules restrict any use of the information to criminally investigate or prosecute any alcohol or drug abuse patient.[facility] the event this information is protected by the Federal Confidentiality of Alcohol and Drug Abuse Patient Records regulations: The Federal rules restrict any use of the information to criminally investigate or prosecute any alcohol or drug abuse patient.[facility] Reason for Visit (unrecogniz ed section and content) Reason Comments Orders Reason Comments Mammogram Result Call Back Care Teams (unrecognized sec tion and content) 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 Relationship Specialty Start Date End Date Dewey Packer MD [address] [facility] [address] [place], [place] [id number] PCP - General Family Medicine 07/18/18 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 Relationship Specialty Start Date End Date Dewey Packer MD [address] [facility] [address] [place], [place] [phone] PCP - General Family Medicine 07/18/18 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 Relationship Specialty Start Date End Date Dewey Packer MD [address] [facility] [address] [place] [address] PCP - General Family Medicine 07/18/18 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 This clinical summary was aggregated from multiple sources. Caution should be exercised in using it in the provision of clinical care. This summary normalizes information from multiple sources, and as a consequence, information in this document may materially change the coding, format and clinical context of patient data. In addition, data may be omitted in some cases. CLINICAL DECISIONS SHOULD BE BASED ON THE PRIMARY CLINICAL RECORDS. [facility]. provides no warranty or guarantee of the accuracy or completeness of information in this document.
[2023-10-14 10:33] LABS: Anion Gap 6 (5-15); BUN 10 mg/dL (7-18); BUN/Creat Ratio 12.4 RATIO (10-20); Calcium,Total 9.5 mg/dL (8.5-10.1); Chloride 103 mmol/L (98-107); Cholesterol 186 mg/dL (200); Creatinine, Serum 0.81 mg/dL (0.55-1.02); EST Glomerular Filtration Rate 83 mL/min (>60); Est Glom Filt Rate - Afr Amer 101 mL/min (>60); Glucose 96 mg/dL (74-106); High Density Lipoprotein 54 mg/dL; Potassium 3.6 mmol/L (3.5-5.1); Sodium Level 137 mmol/L (136-145); Triglycerides 102 mg/dL; Very Low Density Lipoprotein 20 mg/dL (5-40)
== END | disposition home or self-care (01) ==
LOC: MFPLAB 08:29
PROVIDERS: PCP Family Medicine; Visit Provider Family Medicine
DX: I10 Essential (primary) hypertension (principal)
CPT/HCPCS: 36415; 80048; 80061

== ENCOUNTER → 2024-04-15 | Outpatient (CLI) | payer OTHER, SELFPAY ==
[2024-04-15 10:26] LABS: Anion Gap 4 (5-15); BUN 12 mg/dL (7-18); BUN/Creat Ratio 16.3 RATIO (10-20); Chloride 104 mmol/L (98-107); Creatinine, Serum 0.74 mg/dL (0.55-1.02); EST Glomerular Filtration Rate 92 mL/min (>60); Est Glom Filt Rate - Afr Amer 112 mL/min (>60); Glucose 97 mg/dL (74-106); Potassium 3.5 mmol/L (3.5-5.1); Sodium Level 137 mmol/L (136-145)
== END | disposition home or self-care (01) ==
LOC: MFPLAB 08:28
PROVIDERS: PCP Family Medicine; Visit Provider Family Medicine
DX: I10 Essential (primary) hypertension (principal)
CPT/HCPCS: 36415; 80048

== ENCOUNTER → 2024-06-23 | Outpatient (CLI) | payer OTHER, SELFPAY ==
[2024-06-23 11:43] LABS: Mucous, Urine 0 SEEN /hpf (<or=2+); Red Blood Cells-Urine 0 SEEN /hpf (0-5); White Blood Cells 0 SEEN /hpf (0-5)
[2024-06-23 15:34] LABS: Absolute Lymphocyte Count 2.64 X10^3/uL (0.83-4.51); Absolute Neutrophil Count 5.3 X10^3/uL (2.0-7.7); Basophil# 0.03 X10^3/uL; Basophil% 0.3 % (0-1); Eosinophil# 0.12 X10^3/uL; Eosinophils% 1.4 % (0-5); Hematocrit 42.6 % (37-47); Hemoglobin 14.4 g/dL (12.0-15.0); Lymphocyte # 2.64 X10^3/ul (0.83-4.51); Lymphocyte % 30.1 % (19-41); Mean Corp Hgb Conc 33.8 g/dL (32-36); Mean Corpuscular Hgb 30.5 pg (27.0-32.0); Mean Corpuscular Volume 90.3 fL (81-99); Mean Platelet Vol. 9.8 fl (6.2-12.0); Monocyte# 0.62 X10^3/uL; Monocyte% 7.1 % (0-10); NRBC Flagged by Analyzer 0 % (0-5); Neutrophil # 5.34 X10^3/uL (2.7-7.7); Neutrophil % 60.9 % (47-70); Platelet Count 302 K/mm3 (150-450); RBC Distribution Width CV 11.9 % (11.6-14.6); RBC Distribution Width SD 39.3 fl (35.1-43.9); Red Blood Count 4.72 M/mm3 (4.2-5.4); White Blood Count 8.8 K/mm3 (4.4-11.0)
[2024-06-23 15:43] LABS: Glucose, Dipstick Normal (Normal); Ketone-Dipstick Negative (Negative); Leukocyte Esterase-Dipstick Negative /ul (Negative); Nitrite-Dipstick Negative (Negative); Occult Blood-Urine Negative /ul (Negative); Protein-Dipstick Negative (Negative); Urine Bilirubin Dipstick Negative (Negative); Urine Clarity Sl. Cloudy (Clear); Urine Urobilinogen Normal (Normal)
[2024-06-23 15:58] LABS: Color, Urine SEE COMMENT BELOW (Yellow)
[2024-06-23 16:01] LABS: Bacteria 1+ /hpf (None Seen); Squamous Epithelial Cells - UA 0-5 SEEN /hpf (5-10)
[2024-06-23 16:11] LABS: Microalbumin,Random Urine < 5.0 mg/L (NO RANGE EST.)
[2024-06-23 16:16] LABS: AST(SGOT) 6 U/L (15-37); Alanine Aminotransfer ALT/SGPT 17 U/L (13-56); Albumin, Serum 4.2 g/dL (3.2-5.0); Alkaline Phosphatase 44 U/L (45-117); Anion Gap 7 (5-15); BUN 11 mg/dL (7-18); BUN/Creat Ratio 13.8 RATIO (10-20); Calcium,Total 10.5 mg/dL (8.5-10.1); Chloride 103 mmol/L (98-107); EST Glomerular Filtration Rate 84 mL/min (>60); Est Glom Filt Rate - Afr Amer 102 mL/min (>60); Glucose 87 mg/dL (74-106); Potassium 3.3 mmol/L (3.5-5.1); Protein, Total 8.2 g/dL (6.4-8.2); Sodium Level 136 mmol/L (136-145); T4 Free Direct 0.93 ng/dL (0.76-1.46)
[2024-06-29 15:10] LABS: Thyroglobulin Antibody < 1.0 IU/mL (0.0-0.9); Thyroid Peroxidase AB 14 IU/mL (0-34)
== END | disposition home or self-care (01) ==
LOC: BIMLAB 11:41
PROVIDERS: PCP Family Medicine; Visit Provider Nurse Practitioner
DX: I10 Essential (primary) hypertension (principal)
CPT/HCPCS: 36415; 80053; 81001; 82043; 84439; 84443; 85025; 86376; 86800

== ENCOUNTER → 2024-06-29 | Outpatient (CLI) | payer OTHER, SELFPAY ==
--- NOTE | 2024-06-29 16:14 | US_ITS ---
STUDY: RENAL ULTRASOUND - COMPLETE REASON FOR EXAM: Female, 39 years old. Nephrolithiasis, kidney cysts TECHNIQUE: Ultrasound evaluation of the kidneys was performed with real-time and static rachel-scale imaging. COMPARISON: None. FINDINGS: RIGHT KIDNEY: Normal location of the right kidney, which is normal in size. The right kidney measures 12.1 cm x 4.5 cm x 4.5 cm. There is a normal cortex of the right kidney. The renal cortex measures 1.1 cm. There is a 6 mm x 8 mm x 6 mm cyst in the upper pole There are no right renal calculi. There is no right hydronephrosis. DISTAL RIGHT URETER: There is non-visualization of the distal right ureter. There is no demonstrated right ureterovesical junction calculus. There is a visualized right ureteral jet. LEFT KIDNEY: Normal location of the left kidney, which is normal in size. The left kidney measures 10.7 cm x 4.4 cm x 5.6 cm. There is a normal cortex of the left kidney. The renal cortex measures 1.1 cm. There is a 9 mm x 7 mm x 10 mm cyst in the upper pole. There are no left renal calculi. There is no left hydronephrosis. DISTAL LEFT URETER: There is non-visualization of the distal left ureter. There is no demonstrated left ureterovesical junction calculus. There is a visualized left ureteral jet. BLADDER: The distended urinary bladder has a volume of 652 ml. There is a normal wall thickness of the distended urinary bladder. There is no demonstrated mass within the urinary bladder. There are no demonstrated bladder calculi. US/Kidney and Bladder IMPRESSION: Normal ultrasound of the kidneys and urinary bladder. Small cysts in the upper pole of both kidneys. Electronically Signed: Damien Lewis MD at 14:48 EDT ,
== END | disposition home or self-care (01) ==
LOC: US 16:14
PROVIDERS: PCP Nurse Practitioner; Referring Provider Nurse Practitioner; Visit Provider Nurse Practitioner
DX: N20.0 Calculus of kidney (principal)
CPT/HCPCS: 76770

== ENCOUNTER → 2024-07-08 | Outpatient (CLI) | payer OTHER, SELFPAY ==
--- NOTE | 2024-07-08 07:59 | RDU_ITS ---
Reason For Study: HTN Right Renal Artery Left Renal Artery Right renal artery ostium Left renal artery ostium 67.2/25.6 152.7/47.4 RSV/EDV. PSV/EDV. Right renal artery proximal Left renal artery proximal PSV/EDV 144.0/36.4 PSV/EDV. 88.6/34.0 . Right renal artery mid 139.6/32.0 Left renal artery mid 76.6/35.7 PSV/EDV. PSV/EDV . Right renal artery distal Left renal artery distal 90.3/39.1 139.6/32.0 PSV/EDV. PSV/EDV. Right RAR 1.52. Left RAR 0.90. Right Renal Parenchyma Left Renal Parenchyma Upper Pole Medula 32.0/15.6 Left upper pole medulla 31.2/11.1 PSV/EDV. PSV/EDV . Right upper pole medulla EDR 0.50 . Left upper pole medulla EDR 0.40 . Right upper pole medulla R.I. Left upper pole medulla R.I. 0.64 . 0.51 . UP Cortex 21.2/8.4 PSV/EDV. Upper Lg Cortx 25.9/12.4 PSV/EDV. Left upper pole cortex EDR 0.40 . Right upper pole cortex EDR 0.50 . Left upper pole cortex R.I. 0.60 . Right upper pole cortex R.I. 0.52 . Left lower Pole medulla 27.6/10.2 Right lower Pole medulla 28.4/11.8 PSV/EDV . PSV/EDV . Left lower pole medulla EDR 0.40 . Right lower pole medulla EDR 0.40 . Left lower pole medulla R.I. 0.63 . Right lower pole medulla R.I. Lower Pole Cortx 23.0/10.2 PSV/EDV. 0.58 . Left lower pole cortex EDR 0.40 . Lower Pole Cortex 20.4/8.1 PSV/EDV. Left lower pole cortex R.I. 0.56 . Right lower pole cortex EDR 0.40 . Left Renal Hilar Right lower pole cortex R.I. 0.60 . LT Hilar avg 107.3/41.5 PSV/EDV . Right Renal Hilar Left hilar acceleration time 60 Right Hilar avg 59.3/19.0 PSV/EDV. m/sec. Right hilar acceleration time 70 Left Renal Dimensions m/sec. Left kidney size 10.94 cm . Right Renal Dimensions Left cortical dimension 1.30 cm . Right kidney size 12.15 cm . Right cortical dimension 1.11 cm . Aorta Proximal abdominal aorta 2.01 x 2.01 cm . Proximal abdominal aorta peak systolic velocity is 100.2 cm/sec . Distal abdominal aorta 1.43 x 1.50 cm . Distal abdominal aorta peak systolic velocity is 105.2 cm/sec . VL/Renal Artery Duplex Ultrasound Interpretation Summary Right renal artery patent with normal velocities and no evidence of stenosis. Left renal artery patent with normal velocities and no evidence of stenosis. Right renal vein patent. Left renal vein patent. Right kidney normal in size. Left kidney normal in size. Ordering Physician: Nina Gao Referring Physician: Nina Gao Performed By: Clint Acosta RVT
--- OUTSIDE RECORDS SUMMARY | 2024-07-08 08:03 | XMS RPT_ITS | CCD ---
Author Organization [facility] Inform ion Partnership [facility] Care Team Providers Care Business Rules Developer Name Role Phone Dewey Packer MD Primary Care Provider DEWEY PACKER Primary Care Unavailable HSELLY MERAZ Referring Unavailable DEWEY PACKER Primary Care Unavailable SHELLY MERAZ Attending Unavailable Medications Completed/Discontinued Medications Medication Drug Class(es) Dates Sig (Normalized) Sig (Original) ASHWAGANDHA EXTRACT ORAL (7 sources) ASHWAGANDHA EXTRACT ORAL Take by mouth. 0 Active Comment on above: Take by mouth. Black Cohosh Extract (7 sources) BLACK COHOSH ORA L Take by mouth. 0 Active Comment on above: Take by mouth. SWTPYGM-EANRONHIZ-UEHB ORAL (7 sources) CALCIUM-MAGNESIU M -ZINC ORAL Take by mouth. 0 Active Comment on above: Take by mouth. hydroCHLOROthiazide 12.5 mg / lisinopril 10 mg oral tablet (1 source) Thiazide Diuretic, Angiotensin Converting Enzyme Inhibitor Start: 03-28-2017 End: 07-29-2023 take 10-12.5 mg by mouth once in the morning lisinopril-hydroc hlorothiazide (PRINZIDE,ZESTORE TIC) 10-12.5 mg per tablet Indications: Essential hypertension Take 1 tablet by mouth every morning. 30 tablet 12 03/28/2017 07/29/2023 Discontinued (Other) Comment on above: Take 1 tablet by brayan th every morning. hydroCHLOROthiazide 12.5 mg / losartan potassium 50 mg oral tablet (7 sources) Thiazide Diuretic, Angiotensin 2 Receptor Pam Start: 05-15-2023 losartan-hydroCHL OROthiazide (HYZAAR) 50-12.5 mg per tablet 24 hr metoprolol succinate 100 mg extended release oral tablet (1 source) beta-Adrenergic Pam Start: 08-15-2016 End: 07-29-2023 take 1 tablet by mouth once daily metoprolol succinate ER (TOPROL XL) 100 mg Tb24 take 1 tablet by mouth once daily 30 tablet 0 08/15/2016 07/29/2023 Discontinued (Other) Comment on above: take 1 tablet by brayan th once daily multivitamin (DAILY MULTI-VITAMIN) ORAL tablet (7 sources) Start: 09-29-2010 multivitamin (DAILY MULTI-VITAMIN) ORAL tablet as directed. 0 09/29/2010 Active Comment on above: as directed. Problems Active Problems Problem Classification Problem Date [...] Results Test Name Value Interpretation Reference Range Abby Whitehead 08-12-2023 NAYAN Telephone (OBGYWM) YOLIS VARELA ([id number]) 1985 F Date Time Provider Department 08/12/23 SHELLY MERAZ During your visit today, we recorded the following information about you: Allergies As of Date: 08/12/2023 (No Known Allergies) Date Reviewed: 07/29/2023 Reviewed by: Shelly Meraz APRN.SILK SPOOLER - Fully Assessed Reason for Visit: Orders [681] Primary Visit Diagnosis:Abnormal mammogram [R92.8] Order(s):[facility] DIAGNOSTIC LEFT [[id number]] Order #: [id number] FUTURE US BREAST LTD LEFT [[id number]] Order #: [id number] FUTURE Prescriptions as of 08/12/2023 - losartan-hydroCHLOROthi azide (HYZAAR) 50-12.5 mg per tablet - ASHWAGANDHA EXTRACT ORAL Take by mouth. - BLACK COHOSH ORAL Take by mouth. - OBMHRWD-BOLTKSZSL-AJLI ORAL Take by mouth. - multivitamin (DAILY MULTI-VITAMIN) ORAL tablet as directed. Problem List As Of Date 08/12/2023 Noted Resolved Supervision of other normal [Z34.80] 08/16/2006 02/09/2011 Hypertension [I10] 10/25/2010 Pilonidal cyst with abscess [L05.01] 02/17/2014 03/28/2017 Calculus of gallbladder without cholecystitis w*03/28/2017 Encounter Status:Closed by SHELLY MERAZ on 08/12/23 Normal [facility] CNCOon 08-10-2023 CNCO HNO ID: [id number] Author: Coordinator, Mammography Service: ? Author Type: Physician Type: Letter Filed: 08/12/2023 11:31 PM Note Text: August 12, 2023 PID: [id number] Yolis Varela [address] [place] [address] Dear Ms. Varela, Your prior imaging studies have arrived [...] report will be kept on file at [facility] as part of your permanent medical record and are available for your continuing care. Thank you for allowing us to help in meeting your health care needs. Sincerely, Dr. Santana Interpreting Radiologist [facility] (Normal Old Films compared) Normal [facility] [place] 07-31-2023 CNCO HNO ID: [id number] Author: Coordinator, Mammography Service: ? Author Type: Physician Type: Letter Filed: 08/01/2023 11:31 PM Note Text: July 31, 2023 PID: [id number] Yolis Varela [address] [place] [id number] Dear Ms. Varela, Your breast imaging exam 07/30/2023 showed a possible finding that may require additional imaging studies for a complete evaluation. However, we recognize you have prior imaging studies at facilities other than [facility], and would like the opportunity to compare [...] and reports are kept on file at [facility] as part of your permanent medical record, and are available for your continuing care. If you have any questions or concerns, please call [phone]. Thank you for choosing [facility] for your imaging needs. Sincerely, Dr. Santana Interpreting Radiologist [facility] (Old Films) Normal [facility] [place] 07-31-2023 CNPN Telephone (OBGYWM) YOLIS VARELA ([id number]) 1985 F Date Time Provider Department 07/31/23 SHELLY MERAZ During your visit today, we recorded the following information about you: Allergies As of Date: 07/31/2023 (No Known Allergies) Date Reviewed: 07/29/2023 Reviewed by: Shelly Meraz APRN.SILK SPOOLER - Fully Assessed Reason for Visit: Orders [681] Primary Visit Diagnosis:Abnormal mammogram [R92.8] Order(s):US BREAST LTD LEFT [[id number]] Order #: [id number] FUTURE JOVAN DIAGNOSTIC LEFT [[id number]] Order #: [id number] FUTURE Prescriptions as of 07/31/2023 - losartan-hydroCHLOROthi azide (HYZAAR) 50-12.5 mg per tablet - ASHWAGANDHA EXTRACT ORAL Take by mouth. - BLACK COHOSH ORAL Take by mouth. - OKKHGFL-NACFZIVWB-TYLY ORAL Take by mouth. - multivitamin (DAILY MULTI-VITAMIN) ORAL tablet as directed. Problem List As Of Date 07/31/2023 Noted Resolved Supervision of other normal [Z34.80] 08/16/2006 02/09/2011 Hypertension [I10] 10/25/2010 Pilonidal cyst with abscess [L05.01] 02/17/2014 03/28/2017 Calculus of gallbladder without cholecystitis w*03/28/2017 Encounter Status:Closed by SHELLY MERAZ on 07/31/23 Normal [facility] CNPN Telephone (RADMN) YOLIS VARELA ([id number]) 1985 F Date Time Provider Department 07/31/23 SHEPARDSON, BHUMI B RADMN During your visit today, we recorded the following information about you: Allergies As of Date: 07/31/2023 (No Known Allergies) Date Reviewed: 07/29/2023 Reviewed by: Shelly Meraz APRN.SILK SPOOLER - Fully Assessed Reason for Visit: Mammogram Result Call Back [[id number]] Prescriptions as of 07/31/2023 - losartan-hydroCHLOROthi azide (HYZAAR) 50-12.5 mg per tablet - ASHWAGANDHA EXTRACT ORAL Take by mouth. - BLACK COHOSH ORAL Take by mouth. - ZRAALAQ-HUEVVUFZV-VSIY ORAL Take by mouth. - multivitamin (DAILY MULTI-VITAMIN) ORAL tablet as directed. Problem List As Of Date 07/31/2023 Noted Resolved Supervision of other normal [Z34.80] 08/16/2006 02/09/2011 Hypertension [I10] 10/25/2010 Pilonidal cyst with abscess [L05.01] 02/17/2014 03/28/2017 Calculus of gallbladder without cholecystitis w*03/28/2017 Encounter Status:Closed by SIVA ARGUETA on 07/31/23 Normal [facility] JOVAN SCREENING W TOMOon 07-30 JOVAN SCREENING W ATIYA * * *Final Report* * * * * * SEE BOTTOM OF REPORT FOR ADDENDED TEXT * * * DATE OF EXAM: Jul 30 2023 9:19AM [facility] 0582 - JOVAN SCREENING W ATIYA / PROCEDURE REASON: multiple diagnoses * * * * Physician Interpretation * * * * RESULT: THIS REPORT HAS BEEN AMENDED. #[id number] - JOVAN SCREENING W ATIYA BILATERAL DIGITAL SCREENING MAMMOGRAM TOMOSYNTHESIS WITH CAD: 07/30/2023 HISTORY: Multiple Diagnoses / Screening Mammogram-Patient reports NO symptoms. /Patient has signed release for outside images that is scanned into syngo from [facility] /SEE TECH NOTE. RESULT: TECHNIQUE: The study was acquired using full field digital technology and interpreted from soft copy. Digital Breast Tomosynthesis (DBT) images were obtained and used to assist in the interpretation of this examination. Current study was also evaluated with a Computer Aided Detection (CAD). No prior exams were available for comparison. The breasts are heterogeneously dense, which may obscure small masses. There is an asymmetry in the left breast at 1 o'clock posterior depth. Finding is best noted on tomographic CC slice 45 and MLO slice 18. No other significant masses, calcifications, or other findings are seen in either breast. IMPRESSION: INCOMPLETE: NEEDS ADDITIONAL IMAGING EVALUATION The asymmetry in the left breast is indeterminate. Additional views and a comparison to prior exams are recommended. Bhumi cortez/arcenio:07/31/2023 06:49:46 [employer] Supervisor(s): RT Kamlesh(R)(M), [facility] letter sent: Comparison Films Needed Mammogram BI-RADS: 0 Incomplete: needs additional imaging evaluation If this report indicates you need additional imaging, and it has NOT yet been performed, please call , to schedule. We sincerely thank you for choosing the [facility] for your breast imaging needs. Multiple national specialty organizations have released breast cancer screening guidelines for women at average risk for developing breast cancer - guidelines that are based on both evidence and opinion, yet differ on when to start and how often to screen for breast cancer. With representation from Breast Imaging, Internal Medicine, Women's Health, Family Medicine, and Medical/Surgical Oncology, the [facility] has carefully reviewed the data and reached the following consensus: 1) All women should engage in shared decision-making with their providers to decide when to start and how often to screen; 2) All women should have the opportunity to start screening mammography at age 40; 3) For women ages 45-55, we recommend annual screening mammograms; 4) For women ages 55 and over, we support both the transition from an annual to a biennial interval if this aligns more with patient's values and preferences, or continuation with annual screening; 5) All women should discuss with their providers when to stop screening mammograms. AMENDMENT: 08/10/2023 Bhumi Santana M.D. Comparison is made to the previous mammogram(s) dated 05/03/22 which are now available. No significant interval change is seen. Routine annual screening mammography is recommended. The patient does not require additional imaging. Amended BI-RADS: 1 Negative letter sent: Normal - Films Compared Health Information Manager: Arcenio Transcribe Date/Time: Jul 30 2023 8:46A Dictated by: BHUMI SANTANA MD This examination was interpreted and the report reviewed and electronically signed by: BHUMI SANTANA MD on Jul 31 2023 6:49AM EST This document has been addended by: BHUMI SANTANA MD on Aug 10 2023 1:08PM EST [id number] Normal [facility] CNOVon 07-29-2023 CNOV Office Visit (OBGYWM ) REYNALDOYOLIS Ismael ([id number]) 1985 F Date Time Provider Department 07/29/23 2:00 PM SHELLY MERAZ OBGYWM During your visit today, we recorded the following information about you: Blood pressure Weight Height Last Period 158/102 80.3 kg 1.6 m 07/01/23 Shelly Meraz APRN.SILK SPOOLER 07/29/2023 2:45 PM Signed Yolis is a 38 year old who [...] L2 SAB2 IAB0 Ectopic0 Multiple0 Live Births2 Telephone Answerer History LMP: 07/01/2023 (Exact Date), Having periods Age at Menarche: Age at First : Age at Menopause: Telephone Answerer History Comments: Sexual Activity: Yes; Male Contraception: [...] Grandmother Lipids Paternal Grandmother Heart Paternal Grandfather [place] Hypertension Paternal Grandfather Crohn's Disease Son Lipids [...] external genitalia normal, normal Bartholin's glands, urethra, [place]'s glands, no vulvar lesions, no cervical lesions, [...] one year or sooner as needed Shelly Meraz APRN.CNP Allergies As of Date: 07/29/2023 (No Known Allergies) Date Reviewed: 07/29/2023 Reviewed by: Shelly Meraz APRN.CNP - Fully Assessed Reason for Visit: Yearly Exam [187] Primary Visit Diagnosis:Encounter for gynecological examination (general) (routine) without abnormal findings [Z01.419] Other Visit Diagnoses:Screening for cervical cancer [Z12.4] Encounter for screening for human papillomavirus (HPV) [Z11.51] Encounter for screening mammogram for breast cancer [Z12.31] Order(s):PAP TEST [[id number]] Order #: [id number] JOVAN SCREENING W ATIYA [[id number]] Order #: [id number] FUTURE Prescriptions as of 07/29/2023 - losartan-hydroCHLOROthi azide (HYZAAR) 50-12.5 mg per tablet - ASHWAGANDHA EXTRACT ORAL Take by mouth. - BLACK COHOSH ORAL Take by mouth. - RETHDUH-UEVIZGEEE-SDLK ORAL Take by mouth. - multi (more content not included)... Normal [facility] HPV W/GENOTYPE THIN PREPon 1 09-28-2022 HPV 16 Ag Ql (Unsp spec) Negative Normal Negative for HPV DNA high risk type 16 by PCR [facility] Comment on above: Order Comment: Speci men Type: FLUID SPECIMEN Ordering Facility: [facility] Address: [address] [place] [address] Performed By: #### H PVHRT #### [facility] CLIA [id number] [address] [place] [address] [place] HPV 18 Ag Ql (Unsp spec) Negative Normal Negative for HPV DNA high risk type 18 by PCR [facility] Comment on above: Order Comment: Speci men Type: FLUID SPECIMEN Ordering Facility: [facility] Address: [address] [place] [address] Performed By: #### H PVHRT #### [facility] CLIA [id number] [address] [place] [address] [place] HPV 31+33+35+39+45+51 +52+56+58+59+66+6 8 DNA RAYO+probe Ql (Cvx) Negative for HPV DNA high risk types: 31,33,35,39,45,51,52,56 ,58,59,66,68 by PCR. Normal Negative for HPV DNA high risk types: 31,33,35,39,45, 51,52,56,58,59, 66,68 by PCR. [facility] Comment on above: Order Comment: Speci men Type: FLUID SPECIMEN Ordering Facility: [facility] Address: [address] [place] [address] Performed By: #### H PVHRT #### [facility] CLIA [id number] [address] [place] [address] [place] PAP TESTon 07-29-2023 ADEQUACY Normal [facility] Comment on above: Order Comment: Speci men Type: FLUID SPECIMEN Ordering Facility: [facility] Address: [address] [place] [address] Result Comment: Sati sfactory for interpretation No endocervical component Performed By: #### L [id number] #### [facility] CLIA [id number] [address] [place] [address] [place] CASE REPORT Normal [facility] Comment on above: Order Comment: Speci men Type: FLUID SPECIMEN Ordering Facility: [facility] Address: [address] [place] [address] Result Comment: Gyne cologic Cytology Report Case: [id number] Authorizing Provider: Shelly Meraz APRN.SILK SPOOLER Collected: 07/29/2023 02:50 PM Ordering Location: OB/Gynecology Received: 07/29/2023 04:54 PM First Screen: Dima Otero, CHACE, ASCP Specimen: Pap Test, ThinPrep, Cervix Performed By: #### L [id number] #### [facility] CLIA [id number] [address] [place] [address] [place] CLINICAL HISTORY, CYTOLOGY, BINDERY TECHNICIAN Routine Exam Normal [facility] Comment on above: Order Comment: Speci men Type: FLUID SPECIMEN Ordering Facility: [facility] Address: [address] [place] [address] Performed By: #### L [id number] #### [facility] CLIA [id number] [address] [place] [id number] [place] CYTOLOGY PAP OTHER INT Fungal organisms morphologically consistent with Rosmery species Normal [facility] Comment on above: Order Comment: Speci men Type: FLUID SPECIMEN Ordering Facility: [facility] Address: [address] [place] [address] Performed By: #### L [id number] #### [facility] CLIA [id number] [address] [place] [address] [place] FINAL PERFORMING LAB Normal [facility] Comment on above: Order Comment: Speci men Type: FLUID SPECIMEN Ordering Facility: [facility] Address: [address] [place] [address] Result Comment: Tech nical component, events director screening performed at [facility], [facility] [place] [address] CLIA# [id number] Diagnostic interpretation performed at [facility], [address] [place], [place] [id number] CLIA# [id number] Borderer: William Herrera M.D. Performed By: #### L [id number] #### [facility] CLIA [id number] [facility] [place] [id number] [place] HPV REFLEX Yes HPV Normal [facility] Comment on above: Order Comment: Speci men Type: FLUID SPECIMEN Ordering Facility: [facility] Address: [address] [place] [id number] Performed By: #### L [id number] #### [facility] CLIA [id number] [facility] [place] [id number] [place] INTERPRETATION, CYTOLOGY, BINDERY TECHNICIAN Normal [facility] Comment on above: Order Comment: Speci men Type: FLUID SPECIMEN Ordering Facility: [facility] Address: [address] [place] [address] Result Comment: Nega tive for intraepithelial lesion or malignancy. Performed By: #### L [id number] #### [facility] CLIA [id number] [address] [place] [address] [place] LMP 07/01/2023 Normal [facility] Comment on above: Order Comment: Speci men Type: FLUID SPECIMEN Ordering Facility: [facility] Address: [address] [place] [address] Performed By: #### L [id number] #### [facility] CLIA [id number] [address] [place] [address] [place] PAP DISCLAIMER COMMENT The Pap Smear is a screening test for cervical cancer. False negative results occur with all screening tests, emphasizing the need for rescreening at recommended intervals, and clinical correlation. Normal [facility] Comment on above: Order Comment: Speci men Type: FLUID SPECIMEN Ordering Facility: [facility] Address: [address] [place] [address] Performed By: #### L [id number] #### [facility] CLIA [id number] [address] [place] [address] [place] PAP SKI MAKER WOOD COMMENT This specimen has been analyzed by the ThinPrep Imaging System, an automated imaging and review system, which assists the laboratory in evaluating cells on ThinPrep Pap tests. Following automated imaging, selected valencia from every slide are reviewed by a events director. Normal [facility] Comment on above: Order Comment: Speci men Type: FLUID SPECIMEN Ordering Facility: [facility] Address: [address] [place] [address] Performed By: #### L [id number] #### [facility] CLIA [id number] [address] [place] [address] [place] Vital Signs Date Time Vital Sign Value Performing Clinician Jose Guadalupe rose 07-29-2023 13:57-0500 Body height 160 cm Shelly Hanson CURRENCY EXCHANGE SPECIALIST.SILK SPOOLER Work Phone: [facility] 07-29-2023 13:57-0500 Body weight 80.29 kg Shelly Mariya CURRENCY EXCHANGE SPECIALIST.SILK SPOOLER Work Phone: [facility] 07-29-2023 13:57-0500 Diastolic blood pressure 102 mm[Hg] Shelly Mariya CURRENCY EXCHANGE SPECIALIST.SILK SPOOLER Work Phone: [facility] 07-29-2023 13:57-0500 Systolic blood pressure 158 mm[Hg] Shelly Mariya CURRENCY EXCHANGE SPECIALIST.SILK SPOOLER Work Phone: [facility] Encounters Encounter Date Encounter Type Care Provider Facility Start: 08-12-2023 Telephone encounter Shelly [facility] elías CURRENCY EXCHANGE SPECIALIST.SILK SPOOLER Work Phone: OB/Gynecology Comment on above: Orders Start: 08-10-2023 Documentation procedure Mammog omar Coordinator [facility] Start: 08-10-2023 Letter encounter Mammography Coordinator [facility] Department Start: 07-31-2023 Documentation procedure Mammog omar Coordinator [facility] Start: 07-31-2023 Letter encounter Mammography Coordinator [facility] Department Start: 07-31-2023 Telephone encounter Shelly [facility] CURRENCY EXCHANGE SPECIALIST.SILK SPOOLER Work Phone: OB/Gynecology Comment on above: Orders Mammogram Result Eduardo l Back Start: 07-30-2023 End: 07-30-2023 ambulatory DEWEY PACKER Facility:[facility] Start: 07-30-2023 Encounter for gynecological examination (general) (routine) without abnormal findings DEWEY PACKER [facility] Start: 07-30-2023 End: 07-30-2023 Patient encounter status Screen [facility] [place] Start: 07-30-2023 End: 07-30-2023 Subsequent hospital visit by physician Screen Mammo [facility] M[facility]ogram Comment on above: Encounter for gyneco logical examination (general) (routine) without abnormal findings [Z01.419] Start: 07-29-2023 End: 07-29-2023 ambulatory DEWEY PACKER Facility:[facility] Start: 07-29-2023 End: 07-29-2023 Patient encounter procedure Shelly Mariya CURRENCY EXCHANGE SPECIALIST.SILK SPOOLER Work Phone: OB/Gynecology Comment on above: Encounter for gyneco logical examination (general) (routine) without abnormal findings (Primary Dx); Screening for cervical cancer; Encounter for screening for human papillomavirus (HPV); Encounter for screening mammogram for breast cancer Start: 07-29-2023 End: 07-29-2023 Patient encounter status Shelly Barlowstoney ARRIOLA Work Phone: [facility] Procedures Date Procedure Procedure Detail Performing Clinician Start: 07-30-2023 Screening digital br east tomosynthesis bi Shelly Barlowstoney ARRIOLA Work Phone: Plan of Treatment Date Care Activity Detail Author Start: 07-29-2028 HPV Testing HPV Testing [facility] Start: 07-29-2028 Pap Testing Pap Testing [facility] Start: 02-08-2028 Urine microalbumin profile DTaP,Tdap,Td Vaccine (8 - Td or Tdap) [facility] Start: 07-30-2024 Mammography Mammogram Screening [facility] Start: 05-10-2023 Influenza vaccination Influenza Vacc ine (#1) [facility] Start: 2023 Mammography Mammogram Screening [facility] Start: 09-09-2022 Depression Assessment Depression Ass essment [facility] Start: 04-20-2019 HPV Testing HPV Testing [facility] Start: 04-20-2019 Pap Testing Pap Testing [facility] Start: 2001 Annual PCP Team Pest Control Service Sales Agent estrellita Disease Visit Annual PCP Team Chronic Disease Visit [facility] Start: 2001 BP Controlled (<130/80) BP Controlle d (<130/80) [facility] Start: 2001 Hepatitis C Screening Hepatitis C Sc reening [facility] Start: 2001 HIV Screening HIV Screening [facility] Start: 1983 Covid-19 Vaccine (#1) Covid-19 Vacci ne (#1) [facility] End: 08-29-2024 JOVAN DIAGNOSTIC LEFT JOVAN DIAGNOSTIC LEFT Radiology Routine Abnormal mammogram 1 Occurrences starting 07/31/2023 until 08/29/2024 [facility] Work Phone: Comment on above: 1 Occurrences starti ng 07/31/2023 until 08/29/2024 End: 09-10-2024 JOVAN DIAGNOSTIC LEFT JOVAN DIAGNOSTIC LEFT Radiology Routine Abnormal mammogram 1 Occurrences starting 08/12/2023 until 09/10/2024 [facility] Work Phone: Comment on above: 1 Occurrences starti ng 08/12/2023 until 09/10/2024 End: 08-27-2024 JOVAN SCREENING W ATIYA JOVAN SCREENING W ATIYA Radiology Routine Encounter for gynecological examination (general) (routine) without abnormal findings Encounter for screening mammogram for breast cancer 1 Occurrences starting 07/29/2023 until 08/27/2024 [facility] Work Phone: Comment on above: 1 Occurrences starti ng 07/29/2023 until 08/27/2024 PAP TEST PAP TEST Lab Rou opal Encounter for gynecological examination (general) (routine) without abnormal findings Screening for cervical cancer Encounter for screening for human papillomavirus (HPV) 07/29/2023 2:50 PM EST [facility] Work Phone: End: 08-29-2024 US BREAST LTD LEFT US BREAST LTD LEFT Radiology Routine Abnormal mammogram 1 Occurrences starting 07/31/2023 until 08/29/2024 [facility] Work Phone: Comment on above: 1 Occurrences starti ng 07/31/2023 until 08/29/2024 End: 09-10-2024 US BREAST LTD LEFT US BREAST LTD LEFT Radiology Routine Abnormal mammogram 1 Occurrences starting 08/12/2023 until 09/10/2024 [facility] Work Phone: Comment on above: 1 Occurrences starti ng 08/12/2023 until 09/10/2024 [facility] Immunizations Immunization Date Immunization Notes Care Provider Lisa milligan 08-18-2016 influenza, seasonal, injectable Shelly Mariya CURRENCY EXCHANGE SPECIALIST.SILK SPOOLER Work Phone: [facility] 08-18-2016 influenza virus vacc ine, unspecified formulation Shelly Hanson CURRENCY EXCHANGE SPECIALIST.SILK SPOOLER Work Phone: [facility] 06-28-2014 influenza, seasonal, injectable Shelly Mariya CURRENCY EXCHANGE SPECIALIST.SILK SPOOLER Work Phone: [facility] 02-06-2013 tetanus toxoid, redu corinne diphtheria toxoid, and acellular pertussis vaccine, adsorbed Shelly Mariya CURRENCY EXCHANGE SPECIALIST.SILK SPOOLER Work Phone: [facility] 11-08-1997 hepatitis B vaccine, pediatric or pediatric/adolescent dosage Shelly Mariya CURRENCY EXCHANGE SPECIALIST.SILK SPOOLER Work Phone: [facility] 04-29-1997 hepatitis B vaccine, pediatric or pediatric/adolescent dosage Shelly Mariya CURRENCY EXCHANGE SPECIALIST.SILK SPOOLER Work Phone: [facility] 03-30-1997 hepatitis B vaccine, pediatric or pediatric/adolescent dosage Shelly Mariya CURRENCY EXCHANGE SPECIALIST.SILK SPOOLER Work Phone: [facility] 02-25-1995 measles, mumps and rubella virus vaccine Shelly Hanson CURRENCY EXCHANGE SPECIALIST.SILK SPOOLER Work Phone: [facility] 01-31-1988 diphtheria, tetanus toxoids and pertussis vaccine Shelly Hanson CURRENCY EXCHANGE SPECIALIST.SILK SPOOLER Work Phone: [facility] 06-09-1985 measles, mumps and rubella virus vaccine Shelly Hanson CURRENCY EXCHANGE SPECIALIST.SILK SPOOLER Work Phone: [facility] 11-17-1984 diphtheria, tetanus toxoids and pertussis vaccine Shelly Hanson CURRENCY EXCHANGE SPECIALIST.SILK SPOOLER Work Phone: [facility] 11-17-1984 trivalent poliovirus vaccine, live, oral Shelly Mariya CURRENCY EXCHANGE SPECIALIST.SILK SPOOLER Work Phone: [facility] 1983 diphtheria, tetanus toxoids and pertussis vaccine Shelly Hanson CURRENCY EXCHANGE SPECIALIST.SILK SPOOLER Work Phone: [facility] 1983 diphtheria, tetanus toxoids and pertussis vaccine Shelly Mariya CURRENCY EXCHANGE SPECIALIST.SILK SPOOLER Work Phone: [facility] 1983 trivalent poliovirus vaccine, live, oral Shelly Mariya CURRENCY EXCHANGE SPECIALIST.SILK SPOOLER Work Phone: [facility] 1983 diphtheria, tetanus toxoids and pertussis vaccine Shelly Hanson CURRENCY EXCHANGE SPECIALIST.SILK SPOOLER Work Phone: [facility] 1983 trivalent poliovirus vaccine, live, oral Shelly Hanson CURRENCY EXCHANGE SPECIALIST.SILK SPOOLER Work Phone: [facility] 1983 trivalent poliovirus vaccine, live, oral Shelly Hanson CURRENCY EXCHANGE SPECIALIST.SILK SPOOLER Work Phone: [facility] Payers Date Payer Category Payer Unknown MMO MMO [employer] PPO [id number] 2023-Present [phone] [address] [place] [address] PPO [id number] 2023 Unknown [id number] Social History Date Type Detail Facility Start: 03-05-2012 Tobacco smoking stat [facility] Never smoked tobacco [facility] Start: 03-05-2012 Tobacco use and exposure Smoke less tobacco non-user [facility] Start: 07-29-2023 Alcohol intake Current drinke r of alcohol (finding) [facility] Start: 07-29-2023 History of Social function [facility] Start: 07-29-2023 Tobacco use panel [facility] National Score (1-10 0), lower number is lower risk 42 [facility] Start: 1985 Sex Assigned At Not on file C [facility] Clinical Notes 02-17-2014 to 08-10-2023 Letter - Coordinator, Mammography - 08/10/2023 1:08 PM ESTLetter - Coordinator, Mammography - 07/31/2023 6:49 AM Musa Hare, Mammo Tech - 07/30/2023 8:50 AM EST Note Date & Type Note Facility 08-10-2023 Miscellaneous Notes August 12, 2023 PID: [id number] Yolis Varela [address] [place] [id number] Dear Ms. Varela, Your prior imaging studies have arrived [...] report will be kept on file at [facility] as part of your permanent medical record and are available for your continuing care. Thank you for allowing us to help in meeting your health care needs. Sincerely, Dr. Santana Interpreting Radiologist [facility] (Normal [employer] compared) documented in this encounter [facility] 07-31-2023 Miscellaneous Notes July 31, 2023 PID: [id number] Yolis Varela [address] [place] [phone] Dear Ms. Varela, Your breast imaging exam 07/30/2023 showed a possible finding that may require additional imaging studies for a complete evaluation. However, we recognize you have prior imaging studies at facilities other than [facility], and would like the opportunity to compare [...] and reports are kept on file at [facility] as part of your permanent medical record, and are available for your continuing care. If you have any questions or concerns, please call [phone]. Thank you for choosing [facility] for your imaging needs. Sincerely, Dr. Santana Interpreting Radiologist [facility] ([employer]) documented in this encounter [facility] 07-30-2023 Note HNO ID: [id number] Author: Musa Rodrigues Mammo Tech Service: ? [...] Benjamin Whitlock July 30, 2023 8:40 AM [facility] 07-30-2023 History of Presen t illness Narrative [...] 2023 8:40 AM documented in this encounter [facility] 07-29-2023 Note HNO ID: [id number] Author: Shelly Meraz APRN.SILK SPOOLER Service: ? Author Type: Nurse Practitioner Type: [...] L2 SAB2 IAB0 Ectopic0 Multiple0 Live Births2 Telephone Answerer History LMP: 07/01/2023 (Exact Date), Having periods Age at Menarche: Age at First : Age at Menopause: Telephone Answerer History Comments: Sexual Activity: Yes; Male Contraception: [...] Grandmother Lipids Paternal Grandmother Heart Paternal Grandfather [place] Hypertension Paternal Grandfather Crohn's Disease Son Lipids [...] external genitalia normal, normal Bartholin's glands, urethra, [place]'s glands, no vulvar lesions, no cervical lesions, [...] one year or sooner as needed Shelly Meraz APRN.[facility] 07-29-2023 History of Presen t illness [...] L2 SAB2 IAB0 Ectopic0 Multiple0 Live Births2 Telephone Answerer History LMP: 07/01/2023 (Exact Date), Having periods Age at Menarche: Age at First : Age at Menopause: Telephone Answerer History Comments: Sexual Activity: Yes; Male Contraception: Tubal Ligation PAST MEDICAL HISTORY Diagnosis Date Hypertension Migraine Pilonidal cyst 2014 in office procedure. PAST SURGICAL HISTORY Procedure Laterality Date CYSTOURETHROSCOPY Cystoscopy for suspected kidney stone DILATION & CURETTAGE DX&/THER NONOBSTETRIC Dilation & curettage TUBAL LIGATION, FAMILY HISTORY Problem Relation Age of Onset Lipids Mother Hypertension Mother Osteoporosis Mother Crohn's Disease Mother Lipids Father Osteoporosis Maternal Grandmother Lipids Paternal Grandmother Heart Paternal Grandfather [place] Hypertension Paternal Grandfather Crohn's Disease Son Lipids [...] external genitalia normal, normal Bartholin's glands, urethra, [place]'s glands, no vulvar lesions, no cervical lesions, [...] one year or sooner as needed Shelly Meraz APRN.CNP documented in this encounter [facility] 02-17-2014 History of Past i llness Narrative Problem Noted Date Diagnosed Date Resolved Date Pilonidal cyst with abscess 02/17/2014 03/28/2017 Supervision of other normal 08/16/2006 02/09/2011 documented as of this encounter (statuses as of 07/30/2023) [facility] History of Past illness Narrative* Problem Noted Date Diagnosed Date Resolved Date Pilonidal cyst with abscess 02/17/2014 03/28/2017 Supervision of other normal 08/16/2006 02/09/2011 documented as of this encounter (statuses as of 07/31/2023) [facility] History of Past illness Narrative* Problem Noted Date Diagnosed Date Resolved Date Pilonidal cyst with abscess 02/17/2014 03/28/2017 Supervision of other normal 08/16/2006 02/09/2011 documented as of this encounter (statuses as of 07/31/2023) [facility] History of Past illness Narrative* Problem Noted Date Diagnosed Date Resolved Date Pilonidal cyst with abscess 02/17/2014 03/28/2017 Supervision of other normal 08/16/2006 02/09/2011 documented as of this encounter (statuses as of 07/31/2023) [facility] History of Past illness Narrative* Problem Noted Date Diagnosed Date Resolved Date Pilonidal cyst with abscess 02/17/2014 03/28/2017 Supervision of other normal 08/16/2006 02/09/2011 documented as of this encounter (statuses as of 08/02/2023) [facility] History of Past illness Narrative* Problem Noted Date Diagnosed Date Resolved Date Pilonidal cyst with abscess 02/17/2014 03/28/2017 Supervision of other normal 08/16/2006 02/09/2011 documented as of this encounter (statuses as of 08/12/2023) [facility] History of Past illness Narrative* Problem Noted Date Diagnosed Date Resolved Date Pilonidal cyst with abscess 02/17/2014 03/28/2017 Supervision of other normal 08/16/2006 02/09/2011 documented as of this encounter (statuses as of 08/13/2023) [facility] Diagnosis Encounter for gynecological examination (general) (routine) without abnormal findings- Primary Screening for cervical cancer Screening for malignant neoplasm of the cervix Encounter for screening for human papillomavirus (HPV) Special screening examination for human papillomavirus (HPV) Encounter for screening mammogram for breast cancer [facility] Diagnosis Encounter for gynecological examination (general) (routine) without abnormal findings Encounter for screening mammogram for breast cancer [facility] Diagnosis Abnormal mammogram- Primary Abnormal mammogram, unspecified documented in this encounter [facility] Diagnosis Abnormal mammogram- Primary Abnormal mammogram, unspecified documented in this encounter [facility] for referral (narrative)* Diagnostic Procedure Only (Routine) - Authorized Specialty Diagnoses / Procedures Referred By Dee dugan Referred To Contact [facility] Diagnoses Encounter for gynecological examination (general) (routine) without abnormal findings Encounter for screening mammogram for breast cancer Procedures JOVAN SCREENING W ATIYA SCREENING DIGITAL BREAST TOMOSYNTHESIS BI SCREENING MAMMOGRAPHY BI 2-VIEW BREAST INC Shelly Chacon APRN.CNP [address] [place] [address] [place] [phone] Referral ID Status Reason Start Date Expiration Date Visits Requested Visits Authorized [id number] Authorized Auto-Generat ed Referral 3 08/27/2024 1 [facility] Diagnostic Procedure Only (Routine) - Pending Review Specialty Diagnoses / Procedures Referred By Dee dugan Referred To Contact [facility] Diagnoses Abnormal mammogram Procedures JOVAN DIAGNOSTIC LEFT DIAGNOSTIC MAMMOGRAPHY COMPUTER-AIDED DETCJ UNI Shelly Meraz APRN.CNP [address] [place] [address] [facility] [address] [place] [address] Referral ID Status Reason Start Date Expiration Date Visits Requested Visits Authorized [id number] Pending Review Auto-Generat ed Referral 3 08/29/2024 1 1 * Diagnostic Procedure Only (Routine) - Pending Review Specialty Diagnoses / Procedures Referred By Dee dugan Referred To Contact [facility] Diagnoses Abnormal mammogram Procedures US BREAST LTD LEFT US BREAST UNI REAL TIME WITH IMAGE LIMITED Shelly Meraz APRN.SILK SPOOLER [address] [place] [address] [facility] [address] [place] [address] Referral ID Status Reason Start Date Expiration Date Visits Requested Visits Authorized [id number] Pending Review Auto-Generat ed Referral 3 08/29/2024 1 1 [facility] Diagnostic Procedure Only (Routine) - Pending Review Specialty Diagnoses / Procedures Referred By Dee dugan Referred To Contact [facility] Diagnoses Abnormal mammogram Procedures US BREAST LTD LEFT US BREAST UNI REAL TIME WITH IMAGE LIMITED Shelly Meraz APRN.CNP [address] [place] [address] [facility] [address] [place] [address] Referral ID Status Reason Start Date Expiration Date Visits Requested Visits Authorized [id number] Pending Review Auto-Generat ed Referral 08/12/2023 09/10/2024 1 1 * Diagnostic Procedure Only (Routine) - Pending Review Specialty Diagnoses / Procedures Referred By Dee dugan Referred To Contact [facility] Diagnoses Abnormal mammogram Procedures JOVAN DIAGNOSTIC LEFT DIAGNOSTIC MAMMOGRAPHY COMPUTER-AIDED DETCJ UNI Shelly Meraz APRN.SILK SPOOLER [address] [place] [address] [facility] [address] [place] [address] Referral ID Status Reason Start Date Expiration Date Visits Requested Visits Authorized [id number] Pending Review Auto-Generat ed Referral 08/12/2023 09/10/2024 1 1 [facility] N[facility]* Diagnostic Procedure Only (Routine) - Closed Specialty Diagnoses / Procedures Referred By Dee dugan Referred To Contact [facility] Diagnoses Encounter for gynecological examination (general) (routine) without abnormal findings Encounter for screening mammogram for breast cancer Procedures JOVAN SCREENING W ATIYA SCREENING DIGITAL BREAST TOMOSYNTHESIS BI SCREENING MAMMOGRAPHY BI 2-VIEW BREAST INC CAD Shelly Meraz APRN.SILK SPOOLER [address] [place] [address] [facility] [address] [place] [address] Referral ID Status Reason Start Date Expiration Date V isits Requested Visits Authorized [id number] Closed Auto-Generate d Referral 07/29/2023 08/27/2024 1 1 [facility] Summary Purpose Family History No Family History [...] or prosecute any alcohol or drug abuse patient.[facility] the event this information is protected by the Federal Confidentiality of Alcohol and Drug Abuse Patient Records regulations: The Federal rules restrict any use of the information to criminally investigate or prosecute any alcohol or drug abuse patient.[facility] the event this information is protected by the Federal Confidentiality of Alcohol and Drug Abuse Patient Records regulations: The Federal rules restrict any use of the information to criminally investigate or prosecute any alcohol or drug abuse patient.[facility] the event this information is protected by the Federal Confidentiality of Alcohol and Drug Abuse Patient Records regulations: The Federal rules restrict any use of the information to criminally investigate or prosecute any alcohol or drug abuse patient.[facility] the event this information is protected by the Federal Confidentiality of Alcohol and Drug Abuse Patient Records regulations: The Federal rules restrict any use of the information to criminally investigate or prosecute any alcohol or drug abuse patient.[facility] the event this information is protected by the Federal Confidentiality of Alcohol and Drug Abuse Patient Records regulations: The Federal rules restrict any use of the information to criminally investigate or prosecute any alcohol or drug abuse patient.[facility] the event this information is protected by the Federal Confidentiality of Alcohol and Drug Abuse Patient Records regulations: The Federal rules restrict any use of the information to criminally investigate or prosecute any alcohol or drug abuse patient.[facility] Reason for Visit (unrecogniz ed section and content) Reason Comments Yearly Exam Reason Comments Orders Reason Comments Mammogram Result Call Back Care Teams (unrecognized sec tion and content) Business Rules Developer Relationship Specialty Start Date End Date Dewey Packer MD [address] [facility] [address] [place] [address] PCP - General Family Medicine 07/18/18 Business Rules Developer Relationship Specialty Start Date End Date Dewey Packer MD [address] [facility] [address] [place], [place] [id number] PCP - General Family Medicine 07/18/18 Business Rules Developer Relationship Specialty Start Date End Date Dewey Packer MD [address] [facility] [address] [place] [address] PCP - General Family Medicine 07/18/18 Business Rules Developer Relationship Specialty Start Date End Date Dewey Packer MD [address] [facility] [address] [place], [place] [id number] PCP - General Family Medicine 07/18/18 Business Rules Developer Relationship Specialty Start Date End Date Dewey Packer MD [address] [facility] [address] [place], [place] [address] PCP - General Family Medicine 07/18/18 Business Rules Developer Relationship Specialty Start Date End Date Dewey Packer MD [address] [facility] [address] [place], [place] [id number] PCP - General Family Medicine 07/18/18 INFORMATION SOURCE (unrecogn ized section and content) DATE CREATED AUTHOR 08/14/2023 [facility] FOR RECORDS PERTAINING TO PATIENTS WHO ARE [...] BE BASED ON THE PRIMARY CLINICAL RECORDS. [facility] [facility]. provides no warranty or guarantee of the accuracy or completeness of information in this document.
== END | disposition home or self-care (01) ==
LOC: CVS 07:59
PROVIDERS: PCP Nurse Practitioner; Referring Provider Nurse Practitioner; Visit Provider Nurse Practitioner
DX: I10 Essential (primary) hypertension (principal)
CPT/HCPCS: 93975

== ENCOUNTER → 2024-07-09 | Outpatient (CLI) | payer OTHER, SELFPAY ==
--- OUTSIDE RECORDS SUMMARY | 2024-07-09 07:15 | XMS RPT_ITS | CCD ---
Author Organization [facility] Inform ion Partnership [facility] Care Team Providers Care Wedding Consultant Name Role Phone Dewey Packer MD Primary Care Provider DEWEY PACKER Primary Care Unavailable SHELLY MERAZ Referring Unavailable DEWEY PACKER Primary Care Unavailable SHELLY MERAZ Attending Unavailable Medications Completed/Discontinued Medications Medication Drug Class(es) Dates Sig (Normalized) Sig (Original) ASHWAGANDHA EXTRACT ORAL (7 sources) ASHWAGANDHA EXTRACT ORAL Take by mouth. 0 Active Comment on above: Take by mouth. Black Cohosh Extract (7 sources) BLACK COHOSH ORA L Take by mouth. 0 Active Comment on above: Take by mouth. FVBMEMY-HWEHBXQRH-YPVH ORAL (7 sources) CALCIUM-MAGNESIU M -ZINC ORAL [...] [place] 08-12-2023 NAYAN Telephone (OBGYWM) YOLIS VARELA ([id number]) 1985 F Date Time Provider Department 08/12/23 SHELLY MERAZ During your visit today, we recorded the following information about you: Allergies As of Date: 08/12/2023 (No Known Allergies) Date Reviewed: 07/29/2023 Reviewed by: Shelly Meraz APRN.ARMORER TECHNICIAN - Fully Assessed Reason for Visit: Orders [681] Primary Visit Diagnosis:Abnormal mammogram [R92.8] Order(s):[facility] DIAGNOSTIC LEFT [[id number]] Order #: [id number] FUTURE US BREAST LTD LEFT [[id number]] Order #: [id number] FUTURE Prescriptions as of 08/12/2023 - losartan-hydroCHLOROthi azide (HYZAAR) 50-12.5 mg per tablet - ASHWAGANDHA EXTRACT ORAL Take by mouth. - BLACK COHOSH ORAL Take by mouth. - [id number] ORAL Take by mouth. - multivitamin (DAILY MULTI-VITAMIN) ORAL tablet as directed. Problem List As Of Date 08/12/2023 Noted Resolved Supervision of other normal [Z34.80] 08/16/2006 02/09/2011 Hypertension [I10] 10/25/2010 Pilonidal cyst with abscess [L05.01] 02/17/2014 03/28/2017 Calculus of gallbladder without cholecystitis w*03/28/2017 Encounter Status:Closed by SHELLY MERAZ on 08/12/23 Normal [facility] CNCOon 08-10-2023 CNCO HNO ID: [id number] Author: Coordinator, Mammography Service: ? Author Type: Physician Type: Letter Filed: 08/12/2023 11:31 PM Note Text: August 12, 2023 PID: [id number] Yolis Varela [address] [place] [address] Dear Ms. Varela, Your prior imaging studies [...] report will be kept on file at [facility] as part of your permanent medical record and are available for your continuing care. Thank you for allowing us to help in meeting your health care needs. Sincerely, Dr. Santana Interpreting Radiologist [facility] (Normal Old Films compared) Normal [facility] Blanca 07-31-2023 CNCO HNO ID: [id number] Author: Coordinator, Mammography Service: ? Author Type: Physician Type: Letter Filed: 08/01/2023 11:31 PM Note Text: July 31, 2023 PID: [id number] Yolis Varela [address] [place] [id number] Dear Ms. Varela, Your breast imaging exam 07/30/2023 showed a possible finding that may require additional imaging studies for a complete evaluation. However, we recognize you have prior imaging studies at facilities other than [facility], and would like the opportunity to compare [...] and reports are kept on file at [facility] as part of your permanent medical record, and are available for your continuing care. If you have any questions or concerns, please call [phone]. Thank you for choosing [facility] for your imaging needs. Sincerely, Dr. Santana Interpreting Radiologist [facility] (Old Films) Normal [facility] [place] 07-31-2023 CNPN Telephone (OBGYWM) YOLIS VARELA ([id number]) 1985 F Date Time Provider Department 07/31/23 SHELLY MERAZ During your visit today, we recorded the following information about you: Allergies As of Date: 07/31/2023 (No Known Allergies) Date Reviewed: 07/29/2023 Reviewed by: Shelly Meraz APRN.ARMORER TECHNICIAN - Fully Assessed Reason for Visit: Orders [681] Primary Visit Diagnosis:Abnormal mammogram [R92.8] Order(s):US BREAST LTD LEFT [[id number]] Order #: [id number] FUTURE JOVAN DIAGNOSTIC LEFT [[id number]] Order #: [id number] FUTURE Prescriptions as of 07/31/2023 - losartan-hydroCHLOROthi azide (HYZAAR) 50-12.5 mg per tablet - ASHWAGANDHA EXTRACT ORAL Take by mouth. - BLACK COHOSH ORAL Take by mouth. - [id number] ORAL Take by mouth. - multivitamin (DAILY MULTI-VITAMIN) ORAL tablet as directed. Problem List As Of Date 07/31/2023 Noted Resolved Supervision of other normal [Z34.80] 08/16/2006 02/09/2011 Hypertension [I10] 10/25/2010 Pilonidal cyst with abscess [L05.01] 02/17/2014 03/28/2017 Calculus of gallbladder without cholecystitis w*03/28/2017 Encounter Status:Closed by SHELLY MERAZ on 07/31/23 Normal [facility] CNPN Telephone (RADMN) YOLIS VARELA ([id number]) 1985 F Date Time Provider Department 07/31/23 SHEPARDSON, BHUMI B RADMN During your visit today, we recorded the following information about you: Allergies As of Date: 07/31/2023 (No Known Allergies) Date Reviewed: 07/29/2023 Reviewed by: Shelly Meraz APRN.ARMORER TECHNICIAN - Fully Assessed Reason for Visit: Mammogram Result Call Back [[id number]] Prescriptions as of 07/31/2023 - losartan-hydroCHLOROthi azide (HYZAAR) 50-12.5 mg per tablet - ASHWAGANDHA EXTRACT ORAL Take by mouth. - BLACK COHOSH ORAL Take by mouth. - [id number]-[id number]-PPEL ORAL Take by mouth. - multivitamin (DAILY MULTI-VITAMIN) ORAL tablet as directed. Problem List As Of Date 07/31/2023 Noted Resolved Supervision of other normal [Z34.80] 08/16/2006 02/09/2011 Hypertension [I10] 10/25/2010 Pilonidal cyst with abscess [L05.01] 02/17/2014 03/28/2017 Calculus of gallbladder without cholecystitis w*03/28/2017 Encounter Status:Closed by SIVA ARGUETA on 07/31/23 Normal [facility] JOVAN SCREENING W TOMOon 07-30 JOVAN SCREENING W ATIYA * * *Final Report* * * * * * SEE BOTTOM OF REPORT FOR ADDENDED TEXT * * * DATE OF EXAM: Jul 30 2023 9:19AM [facility] 0582 - JOVAN SCREENING W ATIYA / PROCEDURE REASON: multiple diagnoses * * * * Physician Interpretation * * * * RESULT: THIS REPORT HAS BEEN AMENDED. #[id number] - JOVAN SCREENING W ATIYA BILATERAL DIGITAL SCREENING MAMMOGRAM TOMOSYNTHESIS WITH CAD: 07/30/2023 HISTORY: Multiple Diagnoses / Screening Mammogram-Patient reports NO symptoms. /Patient has signed release for outside images that is scanned into syngo from [facility] /SEE TECH NOTE. RESULT: TECHNIQUE: The [...] comparison to prior exams are recommended. Bhumi cortez/arecnio:07/31/2023 06:49:46 Senior Systems Engineer(s): RT Kamlesh(R)(M), [facility] letter sent: Comparison Films Needed Mammogram BI-RADS: 0 Incomplete: needs additional imaging evaluation If this report indicates you need additional imaging, and it has NOT yet been performed, please call , to schedule. We sincerely thank you for choosing the [facility] for your breast imaging needs. Multiple national specialty organizations have released breast cancer screening guidelines for women at average risk for developing breast cancer - guidelines that are based on both evidence and opinion, yet differ on when to start and how often to screen for breast cancer. With representation from Breast Imaging, Internal Medicine, Women's Health, Family Medicine, and Medical/Surgical Oncology, the [facility] has carefully reviewed the data and reached [...] Negative letter sent: Normal - Films Compared Expense Analyst: Arcenio Transcribe Date/Time: Jul 30 2023 8:46A Dictated by: BHUMI SANTANA MD This examination was interpreted and the report reviewed and electronically signed by: BHUMI SANTANA MD on Jul 31 2023 6:49AM EST This document has been addended by: BHUMI SANTANA MD on Aug 10 2023 1:08PM EST [id number] Normal [facility] CNOVon 07-29-2023 CNOV Office Visit (OBGYWM ) REYNALDOYOLIS Ismael ([id number]) 1985 F Date Time Provider Department 07/29/23 2:00 PM SHELLY MERAZ OBGYWM During your visit today, we recorded the following information about you: Blood pressure Weight Height Last Period 158/102 80.3 kg 1.6 m 07/01/23 Shelly Meraz APRN.ARMORER TECHNICIAN 07/29/2023 2:45 PM Signed Yolis is a [...] L2 SAB2 IAB0 Ectopic0 Multiple0 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 LMP: 07/01/2023 (Exact Date), Having periods Age at Menarche: Age at First : Age at 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: Sexual Activity: Yes; Male Contraception: [...] Grandmother Lipids Paternal Grandmother Heart Paternal Grandfather PA Hypertension Paternal Grandfather Crohn's Disease Son Lipids [...] external genitalia normal, normal Bartholin's glands, urethra, [place]'s glands, no vulvar lesions, no cervical lesions, [...] mammogram for breast cancer [Z12.31] Order(s):PAP TEST [ALN1042] Order #: [id number] JOVAN SCREENING W ATIYA [[id number]] Order #: [id number] FUTURE Prescriptions as of 07/29/2023 - losartan-hydroCHLOROthi azide (HYZAAR) 50-12.5 mg per tablet - ASHWAGANDHA EXTRACT ORAL Take by mouth. - BLACK COHOSH ORAL Take by mouth. - [id number] ORAL Take by mouth. - multi (more content not included)... Normal [facility] HPV W/GENOTYPE THIN PREPon 1 09-28-2022 HPV 16 Ag Ql (Unsp spec) Negative Normal Negative for HPV DNA high risk type 16 by PCR [facility] Comment on above: Order Comment: Speci men Type: FLUID SPECIMEN Ordering Facility: [facility] Address: [address] [place] [address] Performed By: #### H PVHRT #### [facility] CLIA [id number] [address] [place] [address] [place] HPV 18 Ag Ql (Unsp spec) Negative Normal Negative for HPV DNA high risk type 18 by PCR [facility] Comment on above: Order Comment: Speci men Type: FLUID SPECIMEN Ordering Facility: [facility] Address: [address] [place] [address] Performed By: #### H PVHRT #### [facility] CLIA [id number] [address] [place] [address] [place] HPV 31+33+35+39+45+51 +52+56+58+59+66+6 8 DNA RAYO+probe Ql (Cvx) Negative for HPV DNA high risk types: 31,33,35,39,45,51,52,56 ,58,59,66,68 by PCR. Normal Negative for HPV DNA high risk types: 31,33,35,39,45, 51,52,56,58,59, 66,68 by PCR. [facility] Comment on above: Order Comment: Speci men Type: FLUID SPECIMEN Ordering Facility: [facility] Address: [address] [place] [address] Performed By: #### H PVHRT #### [facility] CLIA [id number] [address] [place] [address] [place] PAP TESTon 07-29-2023 ADEQUACY Normal [facility] Comment on above: Order Comment: Speci men Type: FLUID SPECIMEN Ordering Facility: [facility] Address: [address] [place] [address] Result Comment: Sati sfactory for interpretation No endocervical component Performed By: #### L [id number] #### [facility] CLIA [id number] [address] [place] [address] [place] CASE REPORT Normal [facility] Comment on above: Order Comment: Speci men Type: FLUID SPECIMEN Ordering Facility: [facility] Address: [address] [place] [address] Result Comment: Gyne cologic Cytology Report Case: [id number] Authorizing Provider: Shelly Meraz APRN.ARMORER TECHNICIAN Collected: 07/29/2023 02:50 PM Ordering Location: OB/Gynecology Received: 07/29/2023 04:54 PM First Screen: Dima Otero, CHACE, ASCP Specimen: Pap Test, ThinPrep, Cervix Performed By: #### L [id number] #### [facility] CLIA [id number] [address] [place] [address] [place] CLINICAL HISTORY, CYTOLOGY, FAMILY SERVICES WORKER Routine Exam Normal [facility] Comment on above: Order Comment: Speci men Type: FLUID SPECIMEN Ordering Facility: [facility] Address: [address] [place] [address] Performed By: #### L [id number] #### [facility] CLIA [id number] [address] [place] [id number] [place] CYTOLOGY PAP OTHER INT Fungal organisms morphologically consistent with Rosmery species Normal [facility] Comment on above: Order Comment: Speci men Type: FLUID SPECIMEN Ordering Facility: [facility] Address: [address] [place] [address] Performed By: #### L [id number] #### [facility] CLIA [id number] [address] [place] [address] [place] FINAL PERFORMING LAB Normal [facility] Comment on above: Order Comment: Speci men Type: FLUID SPECIMEN Ordering Facility: [facility] Address: [address] [place] [address] Result Comment: Tech nical component, hull inspector screening performed at [facility], [facility]0 Replaced By [facility] [place] [address] CLIA# [id number] Diagnostic interpretation performed at [facility], [address] [place], [place] [id number] CLIA# [id number] Ship Scraper: William Herrera M.D. Performed By: #### L [id number] #### [facility] CLIA [id number] [facility] [place] [id number] [place] HPV REFLEX Yes HPV Normal [facility] Comment on above: Order Comment: Speci men Type: FLUID SPECIMEN Ordering Facility: [facility] Address: [address] [place] [id number] Performed By: #### L [id number] #### [facility] CLIA [id number] [facility]0 [place] [id number] [place] INTERPRETATION, CYTOLOGY, FAMILY SERVICES WORKER Normal [facility] Comment on above: Order Comment: Speci men Type: FLUID SPECIMEN Ordering Facility: [facility] Address: [address] [place] [address] Result Comment: Nega tive for intraepithelial lesion or malignancy. Performed By: #### L [id number] #### [facility] CLIA [id number] [address] [place] [address] [place] LMP 07/01/2023 Normal [facility] Comment on above: Order Comment: Speci men Type: FLUID SPECIMEN Ordering Facility: [facility] Address: [address] [place] [address] Performed By: #### L [id number] #### [facility] CLIA [id number] [address] [place] [address] [place] PAP DISCLAIMER COMMENT The Pap Smear is a screening test for cervical cancer. False negative results occur with all screening tests, emphasizing the need for rescreening at recommended intervals, and clinical correlation. Normal [facility] Comment on above: Order Comment: Speci men Type: FLUID SPECIMEN Ordering Facility: [facility] Address: [address] [place] [address] Performed By: #### L [id number] #### [facility] CLIA [id number] [address] [place] [address] [place] PAP MOBILE PHLEBOTOMIST COMMENT This specimen has been analyzed by the ThinPrep Imaging System, an automated imaging and review system, which assists the laboratory in evaluating cells on ThinPrep Pap tests. Following automated imaging, selected valencia from every slide are reviewed by a hull inspector. Normal [facility] Comment on above: Order Comment: Speci men Type: FLUID SPECIMEN Ordering Facility: [facility] Address: [address] [place] [address] Performed By: #### L [id number] #### [facility] CLIA [id number] [address] [place] [address] [place] Vital Signs Date Time Vital Sign Value Performing Clinician Jose Guadalupe rose 07-29-2023 13:57-0500 Body height 160 cm Shelly [place] RN LABOR DELIVERY.ARMORER TECHNICIAN Work Phone: [facility] 07-29-2023 13:57-0500 Body weight 80.29 kg Shelly Mariya RN LABOR DELIVERY.ARMORER TECHNICIAN Work Phone: [facility] 07-29-2023 13:57-0500 Diastolic blood pressure 102 mm[Hg] Shelly Mariya RN LABOR DELIVERY.ARMORER TECHNICIAN Work Phone: [facility] 07-29-2023 13:57-0500 Systolic blood pressure 158 mm[Hg] Shelly Mariya RN LABOR DELIVERY.ARMORER TECHNICIAN Work Phone: [facility] Encounters Encounter Date Encounter Type Care Provider Facility Start: 08-12-2023 Telephone encounter Shelly Metc elías RN LABOR DELIVERY.ARMORER TECHNICIAN Work Phone: OB/Gynecology Comment on above: Orders Start: 08-10-2023 Documentation procedure Mammog omar Coordinator [facility] Start: 08-10-2023 Letter encounter Mammography Coordinator [facility] Department Start: 07-31-2023 Documentation procedure Mammog omar Coordinator [facility] Start: 07-31-2023 Letter encounter Mammography Coordinator [facility] Department Start: 07-31-2023 Telephone encounter Shelly Metc assisted RN LABOR DELIVERY.ARMORER TECHNICIAN Work Phone: OB/Gynecology Comment on above: Orders Mammogram Result Eduardo l Back Start: 07-30-2023 End: 07-30-2023 ambulatory DEWEY PACKER Facility:[facility] Start: 07-30-2023 Encounter for gynecological examination (general) (routine) without abnormal findings DEWEY PACKER [facility] Start: 07-30-2023 End: 07-30-2023 Patient encounter status Screen [facility] Start: 07-30-2023 End: 07-30-2023 Subsequent hospital visit by physician Screen Mammo [facility] Wstr Mammogram Comment on above: Encounter for gyneco logical examination (general) (routine) without abnormal findings [Z01.419] Start: 07-29-2023 End: 07-29-2023 ambulatory DEWEY PACKER Facility:[facility] Start: 07-29-2023 End: 07-29-2023 Patient encounter procedure Shelly Mariya RN LABOR DELIVERY.ARMORER TECHNICIAN Work Phone: OB/Gynecology Comment on above: Encounter for gyneco logical examination (general) (routine) without abnormal findings (Primary Dx); Screening for cervical cancer; Encounter for screening for human papillomavirus (HPV); Encounter for screening mammogram for breast cancer Start: 07-29-2023 End: 07-29-2023 Patient encounter status Shelly Barlowstoney ARRIOLA Work Phone: [facility] Procedures Date Procedure Procedure Detail Performing Clinician Start: 07-30-2023 Screening digital br east tomosynthesis bi Shelly Barlowstoney ARRIOLA Work Phone: Plan of Treatment Date Care Activity Detail Author Start: 07-29-2028 HPV Testing HPV Testing [facility] Start: 07-29-2028 Pap Testing Pap Testing [facility] Start: 02-08-2028 Urine microalbumin profile DTaP,Tdap,Td Vaccine (8 - Td or Tdap) [facility] Start: 07-30-2024 Mammography Mammogram Screening [facility] Start: 05-10-2023 Influenza vaccination Influenza Vacc ine (#1) [facility] Start: 2023 Mammography Mammogram Screening [facility] Start: 09-09-2022 Depression Assessment Depression Ass essment [facility] Start: 04-20-2019 HPV Testing HPV Testing [facility] Start: 04-20-2019 Pap Testing Pap Testing [facility] Start: 2001 Annual PCP Team Auto Adjudication Specialist estrellita Disease Visit Annual PCP Team Chronic Disease Visit [facility] Start: 2001 BP Controlled (<130/80) BP Controlle d (<130/80) [facility] Start: 2001 Hepatitis C Screening Hepatitis C Sc reening [facility] Start: 2001 HIV Screening HIV Screening [facility] Start: 1983 Covid-19 Vaccine (#1) Covid-19 Vacci ne (#1) [facility] End: 08-29-2024 JOVAN DIAGNOSTIC LEFT JOVAN DIAGNOSTIC LEFT Radiology Routine Abnormal mammogram 1 Occurrences starting 07/31/2023 until 08/29/2024 [facility] Work Phone: Comment on above: 1 Occurrences starti ng 07/31/2023 until 08/29/2024 End: 09-10-2024 JOVAN DIAGNOSTIC LEFT JOVAN DIAGNOSTIC LEFT Radiology Routine Abnormal mammogram 1 Occurrences starting 08/12/2023 until 09/10/2024 [facility] Work Phone: Comment on above: 1 Occurrences starti ng 08/12/2023 until 09/10/2024 End: 08-27-2024 JOVAN SCREENING W ATIYA JOVAN SCREENING W ATIYA Radiology Routine Encounter for gynecological examination (general) (routine) without abnormal findings Encounter for screening mammogram for breast cancer 1 Occurrences starting 07/29/2023 until 08/27/2024 [facility] Work Phone: Comment on above: 1 Occurrences starti ng 07/29/2023 until 08/27/2024 PAP TEST PAP TEST Lab Rou opal Encounter for gynecological examination (general) (routine) without abnormal findings Screening for cervical cancer Encounter for screening for human papillomavirus (HPV) 07/29/2023 2:50 PM EST [facility] Work Phone: End: 08-29-2024 US BREAST LTD LEFT US BREAST LTD LEFT Radiology Routine Abnormal mammogram 1 Occurrences starting 07/31/2023 until 08/29/2024 [facility] Work Phone: Comment on above: 1 Occurrences starti ng 07/31/2023 until 08/29/2024 End: 09-10-2024 US BREAST LTD LEFT US BREAST LTD LEFT Radiology Routine Abnormal mammogram 1 Occurrences starting 08/12/2023 until 09/10/2024 [facility] Work Phone: Comment on above: 1 Occurrences starti ng 08/12/2023 until 09/10/[address] [facility] Immunizations Immunization Date Immunization Notes Care Provider Lisa milligan 08-18-2016 influenza, seasonal, injectable Shelly Mariya RN LABOR DELIVERY.ARMORER TECHNICIAN Work Phone: [facility] 08-18-2016 influenza virus vacc ine, unspecified formulation Shelly [place] RN LABOR DELIVERY.ARMORER TECHNICIAN Work Phone: [facility] 06-28-2014 influenza, seasonal, injectable Shelly Mariya RN LABOR DELIVERY.ARMORER TECHNICIAN Work Phone: [facility] 02-06-2013 tetanus toxoid, redu corinne diphtheria toxoid, and acellular pertussis vaccine, adsorbed Shelly Mariya RN LABOR DELIVERY.ARMORER TECHNICIAN Work Phone: [facility] 11-08-1997 hepatitis B vaccine, pediatric or pediatric/adolescent dosage Shelly Mariya RN LABOR DELIVERY.ARMORER TECHNICIAN Work Phone: [facility] 04-29-1997 hepatitis B vaccine, pediatric or pediatric/adolescent dosage Shelly Mariya RN LABOR DELIVERY.ARMORER TECHNICIAN Work Phone: [facility] 03-30-1997 hepatitis B vaccine, pediatric or pediatric/adolescent dosage Shelly Mariya RN LABOR DELIVERY.ARMORER TECHNICIAN Work Phone: [facility] 02-25-1995 measles, mumps and rubella virus vaccine Shelly [place] RN LABOR DELIVERY.ARMORER TECHNICIAN Work Phone: [facility] 01-31-1988 diphtheria, tetanus toxoids and pertussis vaccine Shelly [place] RN LABOR DELIVERY.ARMORER TECHNICIAN Work Phone: [facility] 06-09-1985 measles, mumps and rubella virus vaccine Shelly [place] RN LABOR DELIVERY.ARMORER TECHNICIAN Work Phone: [facility] 11-17-1984 diphtheria, tetanus toxoids and pertussis vaccine Shelly [place] RN LABOR DELIVERY.ARMORER TECHNICIAN Work Phone: [facility] 11-17-1984 trivalent poliovirus vaccine, live, oral Shelly Mariya RN LABOR DELIVERY.ARMORER TECHNICIAN Work Phone: [facility] 1985 diphtheria, tetanus toxoids and pertussis vaccine Shelly [place] RN LABOR DELIVERY.ARMORER TECHNICIAN Work Phone: [facility] 1985 diphtheria, tetanus toxoids and pertussis vaccine Shelly Mariya RN LABOR DELIVERY.ARMORER TECHNICIAN Work Phone: [facility] 1985 trivalent poliovirus vaccine, live, oral Shelly Mariya RN LABOR DELIVERY.ARMORER TECHNICIAN Work Phone: [facility] 1985 diphtheria, tetanus toxoids and pertussis vaccine Shelly [place] RN LABOR DELIVERY.ARMORER TECHNICIAN Work Phone: [facility] 1985 trivalent poliovirus vaccine, live, oral Shelly [place] RN LABOR DELIVERY.ARMORER TECHNICIAN Work Phone: [facility] 1985 trivalent poliovirus vaccine, live, oral Shelly [place] RN LABOR DELIVERY.ARMORER TECHNICIAN Work Phone: [facility] Payers Date Payer Category Payer Unknown [employer] PPO [id number] 2023-Present [phone] [address] [place] [address] PPO [id number] 2023 Unknown [id number] Social History Date Type Detail Facility Start: 03-05-2012 Tobacco smoking stat [facility] Never smoked tobacco [facility] Start: 03-05-2012 Tobacco use and exposure Smoke less tobacco non-user [facility] Start: 07-29-2023 Alcohol intake Current drinke r of alcohol (finding) [facility] Start: 07-29-2023 History of Social function [facility] Start: 07-29-2023 Tobacco use panel [facility] National Score (1-10 0), lower number is lower risk 42 [facility] Start: 1985 Sex Assigned At Not on file C [facility] Clinical Notes 02-17-2014 to 08-10-2023 Letter - Coordinator, Mammography - 08/10/2023 1:08 PM ESTLetter - Coordinator, Mammography - 07/31/2023 6:49 AM Musa Hare, Mammo Tech - 07/30/2023 8:50 AM EST Note Date & Type Note Facility 08-10-2023 Miscellaneous Notes August 12, 2023 PID: [id number] Yolis Varela [address] [place] [id number] Dear Ms. Varela, Your prior imaging studies [...] report will be kept on file at [facility] as part of your permanent medical record and are available for your continuing care. Thank you for allowing us to help in meeting your health care needs. Sincerely, Dr. Santana Interpreting Radiologist [facility] (Normal [employer] compared) documented in this encounter [facility] 07-31-2023 Miscellaneous Notes July 31, 2023 PID: [id number] Yolis Varela [address] [place] [id number] Dear Ms. Varela, Your breast imaging exam 07/30/2023 showed a possible finding that may require additional imaging studies for a complete evaluation. However, we recognize you have prior imaging studies at facilities other than [facility], and would like the opportunity to compare [...] and reports are kept on file at [facility] as part of your permanent medical record, and are available for your continuing care. If you have any questions or concerns, please call [phone]. Thank you for choosing [facility] for your imaging needs. Sincerely, Dr. Santana Interpreting Radiologist [facility] ([employer]) documented in this encounter [facility] 07-30-2023 Note HNO ID: [id number] Author: Musa Rodrigues Mammo Tech Service: ? [...] Benjamin Whitlock July 30, 2023 8:40 AM [facility] 07-30-2023 History of Presen t illness Narrative [...] 2023 8:40 AM documented in this encounter [facility] 07-29-2023 Note HNO ID: [id number] Author: Shelly Meraz APRN.ARMORER TECHNICIAN Service: ? 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.] L2 SAB2 IAB0 Ectopic0 Multiple0 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 LMP: 07/01/2023 (Exact Date), Having periods Age at Menarche: Age at First : Age at 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: Sexual Activity: Yes; Male Contraception: [...] Grandmother Lipids Paternal Grandmother Heart Paternal Grandfather PA Hypertension Paternal Grandfather Crohn's Disease Son Lipids [...] external genitalia normal, normal Bartholin's glands, urethra, [place]'s glands, no vulvar lesions, no cervical lesions, [...] Shelly Meraz APRN.CNP documented in this encounter [facility] 02-17-2014 History of Past i llness Narrative Problem Noted Date Diagnosed Date Resolved Date Pilonidal cyst with abscess 02/17/2014 03/28/2017 Supervision of other normal 08/16/2006 02/09/2011 documented as of this encounter (statuses as of 07/30/2023) [facility]-11-2014 History of Past illness Narrative* Problem Noted Date Diagnosed Date Resolved Date Pilonidal cyst with abscess 02/17/2014 03/28/2017 Supervision of other normal 08/16/2006 02/09/2011 documented as of this encounter (statuses as of 07/31/2023) [facility] History of Past illness Narrative* Problem Noted Date Diagnosed Date Resolved Date Pilonidal cyst with abscess 02/17/2014 03/28/2017 Supervision of other normal 08/16/2006 02/09/2011 documented as of this encounter (statuses as of 07/31/2023) [facility] History of Past illness Narrative* Problem Noted Date Diagnosed Date Resolved Date Pilonidal cyst with abscess 02/17/2014 03/28/2017 Supervision of other normal 08/16/2006 02/09/2011 documented as of this encounter (statuses as of 07/31/2023) [facility] History of Past illness Narrative* Problem Noted Date Diagnosed Date Resolved Date Pilonidal cyst with abscess 02/17/2014 03/28/2017 Supervision of other normal 08/16/2006 02/09/2011 documented as of this encounter (statuses as of 08/02/2023) [facility] History of Past illness Narrative* Problem Noted Date Diagnosed Date Resolved Date Pilonidal cyst with abscess 02/17/2014 03/28/2017 Supervision of other normal 08/16/2006 02/09/2011 documented as of this encounter (statuses as of 08/12/2023) [facility] History of Past illness Narrative* Problem Noted Date Diagnosed Date Resolved Date Pilonidal cyst with abscess 02/17/2014 03/28/2017 Supervision of other normal 08/16/2006 02/09/2011 documented as of this encounter (statuses as of 08/13/2023) [facility] Diagnosis Encounter for gynecological examination (general) (routine) without abnormal findings- Primary Screening for cervical cancer Screening for malignant neoplasm of the cervix Encounter for screening for human papillomavirus (HPV) Special screening examination for human papillomavirus (HPV) Encounter for screening mammogram for breast cancer documented [facility]* Diagnosis Encounter for gynecological examination (general) (routine) without abnormal findings Encounter for screening mammogram for breast cancer [facility] Diagnosis Abnormal mammogram- Primary Abnormal mammogram, unspecified [facility] this [facility] Diagnosis Abnormal mammogram- Primary Abnormal mammogram, unspecified documented in this encounter [facility] for referral (narrative)* Diagnostic Procedure Only (Routine) - Authorized Specialty Diagnoses / Procedures Referred By Dee dugan Referred To Contact [facility] Diagnoses Encounter for gynecological examination (general) (routine) without abnormal findings Encounter for screening mammogram for breast cancer Procedures JOVAN SCREENING W ATIYA SCREENING DIGITAL BREAST TOMOSYNTHESIS BI SCREENING MAMMOGRAPHY BI 2-VIEW BREAST INC Shelly Chacon APRN.CNP [address] [place] [address] [place] [phone] Referral ID Status Reason Start Date Expiration Date Visits Requested Visits Authorized [id number] Authorized Auto-Generat ed Referral 3 08/27/2024 1 1 [facility] Diagnostic Procedure Only (Routine) - Pending Review Specialty Diagnoses / Procedures Referred By Dee dugan Referred To Contact [facility] Diagnoses Abnormal mammogram Procedures JOVAN DIAGNOSTIC LEFT DIAGNOSTIC MAMMOGRAPHY COMPUTER-AIDED DETCJ UNI Shelly Meraz APRN.CNP [address] [place] [address] [facility] [address] [place] [address] Referral ID Status Reason Start Date Expiration Date Visits Requested Visits Authorized [id number] Pending Review Auto-Generat ed Referral 3 08/29/2024 1 1 * Diagnostic Procedure Only (Routine) - Pending Review Specialty Diagnoses / Procedures Referred By Dee dugan Referred To Contact [facility] Diagnoses Abnormal mammogram Procedures US BREAST LTD LEFT US BREAST UNI REAL TIME WITH IMAGE LIMITED Shelly Meraz APRN.ARMORER TECHNICIAN [address] [place] [address] [facility] [address] [place] [address] Referral ID Status Reason Start Date Expiration Date Visits Requested Visits Authorized [id number] Pending Review Auto-Generat ed Referral 3 08/29/2024 [facility] Diagnostic Procedure Only (Routine) - Pending Review Specialty Diagnoses / Procedures Referred By Dee dugan Referred To Contact [facility] Diagnoses Abnormal mammogram Procedures US BREAST LTD LEFT US BREAST UNI REAL TIME WITH IMAGE LIMITED Shelly Meraz APRN.CNP [address] [place] [address] [facility] [address] [place] [address] Referral ID Status Reason Start Date Expiration Date Visits Requested Visits Authorized [id number] Pending Review Auto-Generat ed Referral 08/12/2023 09/10/2024 1 1 * Diagnostic Procedure Only (Routine) - Pending Review Specialty Diagnoses / Procedures Referred By Dee dugan Referred To Contact [facility] Diagnoses Abnormal mammogram Procedures JOVAN DIAGNOSTIC LEFT DIAGNOSTIC MAMMOGRAPHY COMPUTER-AIDED DETCJ UNI Shelly Meraz APRN.ARMORER TECHNICIAN [address] [facility] [place] [place] [address] [facility] [address] [place] [address] Referral ID Status Reason Start Date Expiration Date Visits Requested Visits Authorized [id number] Pending Review Auto-Generat ed Referral 08/12/2023 09/10/2024 1 1 [facility] Diagnostic Procedure Only (Routine) - Closed Specialty Diagnoses / Procedures Referred By Dee dugan Referred To Contact [facility] Diagnoses Encounter for gynecological examination (general) (routine) without abnormal findings Encounter for screening mammogram for breast cancer Procedures JOVAN SCREENING W ATIYA SCREENING DIGITAL BREAST TOMOSYNTHESIS BI SCREENING MAMMOGRAPHY BI 2-VIEW BREAST INC CAD Shelly Meraz APRN.ARMORER TECHNICIAN [address] [place] [address] [facility] [address] [place] [address] Referral ID Status Reason Start Date Expiration Date V isits Requested Visits Authorized [id number] Closed Auto-Generate d Referral 07/29/2023 08/27/2024 1 1 [facility] Summary Purpose Family History No Family History [...] or prosecute any alcohol or drug abuse patient.[facility] the event this information is protected by the Federal Confidentiality of Alcohol and Drug Abuse Patient Records regulations: The Federal rules restrict any use of the information to criminally investigate or prosecute any alcohol or drug abuse patient.[facility] the event this information is protected by the Federal Confidentiality of Alcohol and Drug Abuse Patient Records regulations: The Federal rules restrict any use of the information to criminally investigate or prosecute any alcohol or drug abuse patient.[facility] the event this information is protected by the Federal Confidentiality of Alcohol and Drug Abuse Patient Records regulations: The Federal rules restrict any use of the information to criminally investigate or prosecute any alcohol or drug abuse patient.[facility] the event this information is protected by the Federal Confidentiality of Alcohol and Drug Abuse Patient Records regulations: The Federal rules restrict any use of the information to criminally investigate or prosecute any alcohol or drug abuse patient.[facility] the event this information is protected by the Federal Confidentiality of Alcohol and Drug Abuse Patient Records regulations: The Federal rules restrict any use of the information to criminally investigate or prosecute any alcohol or drug abuse patient.[facility] the event this information is protected by the Federal Confidentiality of Alcohol and Drug Abuse Patient Records regulations: The Federal rules restrict any use of the information to criminally investigate or prosecute any alcohol or drug abuse patient.[facility] Reason for Visit (unrecogniz ed section and content) Reason Comments Yearly Exam Reason Comments Orders Reason Comments Mammogram Result Call Back Care Teams (unrecognized sec tion and content) Wedding Consultant Relationship Specialty Start Date End Date Dewey Packer MD [address] [facility] [address] [place] [address] PCP - General Family Medicine 07/18/18 Wedding Consultant Relationship Specialty Start Date End Date Dewey Packer MD [address] [facility] [address] [place], [place] [address] PCP - General Family Medicine 07/18/18 Wedding Consultant Relationship Specialty Start Date End Date Dewey Packer MD [address] [facility] [address] [place] [address] PCP - General Family Medicine 07/18/18 Wedding Consultant Relationship Specialty Start Date End Date Dewey Packer MD [address] [facility] [address] [place], [place] [phone] PCP - General Family Medicine 07/18/18 Wedding Consultant Relationship Specialty Start Date End Date Dewey Packer MD [address] [facility] [address] [place], [place] [address] PCP - General Family Medicine 07/18/18 Wedding Consultant Relationship Specialty Start Date End Date Dewey Packer MD [address] [facility] [address] [place], [place] [id number] PCP - General Family Medicine 07/18/18 INFORMATION SOURCE (unrecogn ized section and content) DATE CREATED AUTHOR 08/14/2023 [facility] FOR RECORDS PERTAINING TO PATIENTS WHO ARE [...] BE BASED ON THE PRIMARY CLINICAL RECORDS. [employer] [facility]. provides no warranty or guarantee of the accuracy or completeness of information in this document.
== END | disposition home or self-care (01) ==
LOC: SL 07:13
PROVIDERS: PCP Nurse Practitioner; Visit Provider Nurse Practitioner
DX: G47.10 Hypersomnia, unspecified (principal)
CPT/HCPCS: 95806

== ENCOUNTER → 2024-07-22 | Outpatient (CLI) | payer OTHER, SELFPAY ==
[2024-07-22 12:31] LABS: Anion Gap 5 (5-15); BUN 18 mg/dL (7-18); BUN/Creat Ratio 24.2 RATIO (10-20); Calcium,Total 9.5 mg/dL (8.5-10.1); Chloride 107 mmol/L (98-107); Creatinine, Serum 0.74 mg/dL (0.55-1.02); EST Glomerular Filtration Rate 91 mL/min (>60); Est Glom Filt Rate - Afr Amer 110 mL/min (>60); Glucose 90 mg/dL (74-106); Potassium 4.3 mmol/L (3.5-5.1); Sodium Level 139 mmol/L (136-145)
[2024-07-22 12:46] LABS: PTHIN 18.4 pg/mL (18.4-80.1)
== END | disposition home or self-care (01) ==
LOC: BIMLAB 09:31
PROVIDERS: Nurse Practitioner; PCP Internal Medicine; Referring Provider Physician Assistant; Visit Provider Physician Assistant
DX: N20.0 Calculus of kidney (principal); I10 Essential (primary) hypertension
CPT/HCPCS: 36415; 80048; 83970

== ENCOUNTER → 2024-08-31 | Outpatient (CLI) | payer OTHER, SELFPAY ==
--- NOTE | 2024-08-31 10:01 | NM_ITS ---
CLINICAL: 39-year-old female with history of suspected parathyroid adenoma. 99m Tc SESTAMIBI DUAL PHASE PARATHYROID SCINTIGRAPHY COMPARISON: None available FINDINGS: Following the intravenous administration of 26.2 mCi of 99m Tc sestamibi, image acquisitions of the anterior neck at approximately 20 minutes and 3.0 hours post radiopharmaceutical provision reveal: 1. Immediate static blood pool acquisitions demonstrate uniform distribution of the radiopharmaceutical in the right-left thyroid colloid of a vaguely U-shaped thyroid gland. 2. Delayed images depict near complete washout of the radiotracer from the previously defined right and left thyroid colloid. NM/Parathyroid Scan IMPRESSION: 1. ABNORMAL 99m Tc SESTAMIBI PARATHYROID IMAGING DUAL PHASE EXAMINATION. 2. There is no definitive scintigraphic evidence of parathyroid adenoma on the present evaluation. Electronically Signed: Jossue Garner DO at 10:08 EST ,
== END | disposition home or self-care (01) ==
LOC: NM 09:59
PROVIDERS: PCP Internal Medicine; Referring Provider Physician Assistant; Visit Provider Physician Assistant
DX: I10 Essential (primary) hypertension (principal)
CPT/HCPCS: 78070; A9500

== ENCOUNTER → 2025-06-24 | Outpatient (CLI) | payer OTHER, SELFPAY ==
--- OUTSIDE RECORDS SUMMARY | 2025-06-24 09:15 | XMS RPT_ITS | CCD ---
Author Organization [facility] Care Team Providers Care Radiographer Mammographer Name Role Phone Dewey Packer MD Primary Care Provider DEWEY PACKER Primary Care Unavailable SHELLY MERAZ Attending Unavailable DEWEY PACKER Primary Care Unavailable Jesse MATHUR, Dr. Krishnamurthy Primary Care Provider Jesse MATHUR, Dr. Krishnamurthy Attending Provider Jesse MATHUR, Dr. Krishnamurthy Referring Provider Sima, Nina Primary Care Unavailable MarcusoEstefaniaNina Attending Unavailable Woody Ugalde Attending Unavailable Woody Ugalde Referring Unavailable Oleghe, Efewongbe Primary Care Unavailable Woody Ugalde Attending Unavailable Woody Ugalde Referring Unavailable Oleghe, Efewongbe Primary Care Unavailable Oleghe, Efewongbe Referring Unavailable Oleghe, Efewongbe Primary Care Unavailable Oleghe, Efewongbe Attending Unavailable Woody Ugalde Attending Unavailable Dewey Packer Referring Unavailable Ferullo, Nina Primary Care Unavailable Wang Jung Attending Unavailable Ferullo, Nina Referring Unavailable Ferullo, Nina Primary Care Unavailable Oleghe, Efewongbe Referring Unavailable Oleghe, Efewongbe Primary Care Unavailable Oleghe, Efewongbe Attending Unavailable Oleghe, Efewongbe Attending Unavailable Oleghe, Efewongbe Primary Care Unavailable Dewey Packer Referring Unavailable FerulloNina Attending Unavailable Arnaudullo, Nina Referring Unavailable Ferullo, Nina Primary Care Unavailable Dewey Packer Primary Care Unavailable Dewey Packer Attending Unavailable Dewey Packer Primary Care Unavailable MarcusoNina Attending Unavailable Nina Gao Attending Unavailable Ferullo, Nina Referring Unavailable Nina Gao Primary Care Unavailable Dewey Packer Primary Care Unavailable Dewey Packer Referring Unavailable Nina Gao Attending Unavailable Yessy Molina Referring Unavailable Yessy Molina Primary Care Unavailable Yessy Molina Attending Unavailable Medications Current Medications Medication Drug Class(es) Dates Sig (Normalized) Sig (Original) ASHWAGANDHA EXTRACT ORAL (8 sources) End: 08-04-2024 ASHWAGANDHA EXTRACT ORAL Take by mouth. 08/04/2024 Discontinued ASHWAGANDHA EXTR ACT ORAL Take by mouth. 0 Active Comment on above: Take by mouth. Black Cohosh Extract (8 sources) End: 08-04-2024 BLACK COHOSH ORAL Take by mouth. 08/04/2024 Discontinued BLACK COHOSH ORA L Take by mouth. 0 Active Comment on above: Take by mouth. JHHNVDV-[id number] ORAL (8 sources) End: 08-04-2024 TRILWLV-[id number]-USDR ORAL Take by mouth. 08/04/2024 Discontinued CALCIUM-MAGNESIU M-ZINC ORAL Take by mouth. 0 Active Comment on above: Take by mouth. multivitamin (DAILY MULTI-VITAMIN) ORAL tablet (10 sources) Start: 1 multivitamin (DAILY MULTI-VITAMIN) ORAL tablet as directed. 0 09/29/2010 Active Comment on above: as directed. Multivitamin tablet (1 source) Start: 5 Multivitamin tablet Active 1 {tbl} PO EVERY MORNING March 24, 2025 12:00am valsartan 160 mg oral tablet (8 sources) Angiotensin 2 Receptor Pam Start: 4 End: 5 take 1 tablet by mouth twice daily Valsartan 160 mg tablet Active 160 mg PO TWICE A DAY 180 December 16, 2024 4:37pm Start: 06-25-2024 End: 08-17-2024 take 1 tablet by mouth once daily valsartan (DIOVAN) 160 mg tablet Take 160 mg by mouth once daily. 06/27/2024 Active Completed/Discontinued Medications Medication Drug Class(es) Dates Sig (Normalized) Sig (Original) hydroCHLOROthiazide 12.5 mg / lisinopril 10 mg [...] tablet by brayan th every morning. hydroCHLOROthiazide 25 mg / losartan potassium 100 mg oral tablet (11 sources) Thiazide Diuretic, Angiotensin 2 Receptor Pam Start: 06-23-2024 End: 06-25-2024 Losartan-Hydrochl orothiazide 100-25 mg tablet Discontinued 1 {tbl} PO daily June 23, 2024 12:00am June 25, 2024 4:22pm Start: 05-15-2023 End: 08-04-2024 losartan-hydroCHLOROthiazide (HYZAAR) 50-12.5 mg per tablet 05/15/2023 08/04/2024 Discontinued Start: 01-28-2023 End: 06-23-2024 Losartan-Hydrochlorothiazide 50-12.5 mg tablet Discontinued 1 {tbl} PO DAILY January 28, 2023 12:00am June 23, 2024 10:46am Start: 01-28-2023 take 1 tablet by brayan th once daily Losartan-Hydrochlorothiazide Active 1 TA BLET PO DAILY January 27, 2023 11:00pm 24 hr metoprolol succinate 100 mg extended release oral tablet (1 source) beta-Adrenergic Pam Start: 08-15-2016 End: 07-29-2023 take 1 tablet by mouth once daily metoprolol succinate ER (TOPROL XL) 100 mg Tb24 take 1 tablet by mouth once daily 30 tablet 0 08/15/2016 07/29/2023 Discontinued (Other) Comment on above: take 1 tablet by brayan th once daily Multivitamin (Daily Multiple Vitamin) 1 EACH tablet (3 sources) Start: 03-28-2017 End: 06-23-2024 take 1 tablet by mouth once daily Multivitamin (Daily Multiple Vitamin) 1 EACH tablet Discontinued 1 NMA PO DAILY March 28, 2017 12:00am June 23, 2024 10:42am Start: 03-28-2017 take 1 tablet by brayan th once daily Multivitamin (Daily Multiple Vitamin) 1 EACH tablet Active 1 EACH PO DAILY March 27, 2017 11:00pm Start: 03-28-2017 take 1 tablet by brayan th once daily Multivitamin (Daily Multiple Vitamin) 1 EACH tablet Active 1 EACH PO DAILY March 28, 2017 12:00am potassium chloride 20 meq extended release oral tablet (1 source) Start: 06-25-2024 End: 07-22-2024 take 1 tablet by mouth once daily Potassium Chloride 20 mEq tablet extended release Discontinued 20 meq PO daily 1 0 June 25, 2024 12:00am July 22, 2024 9:40am sertraline 25 mg oral tablet (1 source) Serotonin Reuptake Inhibitor Start: 06-23-2024 End: 07-22-2024 take 1 tablet by mouth once daily Sertraline 25 mg tablet Discontinued 25 mg PO daily June 23, 2024 12:00am July 22, 2024 9:40am Problems Active Problems Problem Classification Problem Date Documented Date Episodic/Chronic Abdominal pain (1 source) Flank pain; Translations: [Unspecified abdominal pain] 06-23-2024 Episodic Anxiety disorders (2 sources) Anxiety; Translations: [Anxiety disorder, unspecified] 09-17-2024 Chronic Biliary tract disease (13 sources) Biliary colic; Translations: [Calculus of bile duct without cholangitis or cholecystitis without obstruction] Onset: 03-28-2017 03-28-2017 Episodic Cardiac dysrhythmias (1 source) Palpitations; Translations: [Palpitations] 06-23-2024 Episodic Essential hypertension (14 sources) Hypertensive disorder; Translations: [Essential (primary) hypertension] Onset: 10-25-2010 10-25-2010 Chronic Immunizations and screening for infectious disease (6 sources) Patient encounter status; Translations: [Encounter for screening for human papillomavirus (HPV)] 07-29-2023 Episodic Nonmalignant breast conditions (2 sources) Breast finding ; Translations: [Dense breast tissue] 08-04-2024 Episodic Other nutritional; endocrine; and metabolic disorders (1 source) Hypercalcemia; Translations: [Hypercalcemia] 07-22-2024 Chronic Other screening for suspected conditions (not mental disorders or infectious disease) (4 sources) Cancer cervix screening status; Translations: [Encounter for screening for malignant neoplasm of cervix] Onset: 08-26-2024 07-29-2023 Episodic Residual codes; unclassified (1 source) Hypersomnia, unspecified; Translations: [Hypersomnia, unspecified] Onset: 07-28-2024 Chronic Unclassified (1 source) Dense breast tissue; Translations: [Dense breast tissue] Onset: 08-26-2024 Past or Other Problems Problem Classification Problem Date Documented Da te Episodic/Chronic Calculus of urinary tract (2 sources) Kidney stone; Translations: [Calculus of kidney] Onset: 08-19-2024 06-23-2024 Episodic Other and delivery including normal (3 sources) Normal ; Translations: [Encounter for supervision of other normal , unspecified trimester] Onset: 08-16-2006 Resolved: 02-09-2011 02-09-2011 Episodic Skin and subcutaneous tissue infections (3 sources) Pilonidal cyst with abscess; Translations: [Pilonidal cyst with abscess] Onset: 02-17-2014 Resolved: 03-28-2017 03-28-2017 Episodic Results Test Name Value Interpretation Reference Range Facility Internal Medicine Office Vis yudith 03-24-2025 Internal Medicine Office Visit [facility] [address] [place] [address] [place] [address] OFFICE VISIT Date of Service: 03/24/25 MR#: [id number] Acct: [id number] Name: YOLIS VARELA Rep #: [id number] : 1985 Provider: Dr. 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 Pt does not have bp cuff or log today. Denies any SOB, chest pain, palpations, vision changes, headaches. Pt states she had a stressfuly day in all aspects of life and that is why it's elevated in office today, but feels good generally. [facility] Medical History Health care maintenance Anxiety Surgical History H/O tubal ligation H/O wisdom tooth extraction H/O dilation and curettage Family History Mother Acute Crohn's disease Hypertension Osteoporosis Grandfather Diabetes Hypertension Myocardial infarction CHF (congestive heart failure) Cancer melanoma Aunt Multiple sclerosis Grandmother A-fib Cancer melanoma Social History adopted: No household members: spouse and children number of children: 2 current occupational status: employed current occupation: [employer] pets and animals: Yes (1) pets and animals: dog(s) sexually active: Yes Smoking Status: Never smoker alcohol intake: never substance use type: does not use caffeine: No seatbelt use: always do you feel safe at home: Yes HPI HPI Chief Complaint: Follow-up chronic conditions Details: YOLIS VARELA, is a 40-year-old female presenting for a follow-up on blood pressure management. She reports monitoring her blood pressure at home, noting that it tends to be higher immediately after returning from work, with readings in the 130s/90s mmHg, but decreases to the 116-118/80s mmHg range after relaxation. The patient has made several lifestyle modifications, including abstaining from alcohol, reducing caffeine intake, increasing physical activity, and improving dietary habits by reducing processed foods and salt intake. She has not brought her home blood pressure monitor for comparison with office readings but plans to do so in the future. The patient is currently on valsartan 160 mg twice daily, which will be continued. She is scheduled for a preventative visit in three to four months, during which blood work will be reviewed. Attestation: Documentation on this patient encounter was supported using ambient scribe technology/ voice AI technology. The patient consented to recording for the purpose of documenting the encounter. Provider reviewed content of the generated note prior to signature. ROS Const Constitutional: No body ache, chills, excessive sweating, fatigue, fever(s), frequent falls, headache(s), snoring, weakness, sleep problems or change in appetite Eyes Eyes: No blurry vision, change in vision, discharge, dry eyes, eye pain or Light sensitivity ENT ENT: No abnormal hearing, ear or mastoid pain, hearing loss, tinnitus, dizziness/vertigo, nasal congestion, headache(s), neck pain or sore throat Resp Respiratory: No cough, excessive phlegm production, hemoptysis, shortness of breath, snoring or wheezing Cardio Cardiology: No chest pain at rest, chest pain with exertion, excessive sweating, shortness of breath, dyspnea on exertion, lightheadedness, orthopnea or palpitations Gastro GI: No abdominal pain, change in bowel habits, constipation, cramping, diarrhea, nausea/dyspepsia or vomiting Genitourinary-Female: No burning urination, painful urination, urinary incontinence, urinary frequency, abnormal vaginal bleeding or pelvic pain Mus (more content not included)... Normal [facility] Internal Medicine Office Vis itoblanca 12-16-2024 Internal Medicine Office Visit [facility] [address] [place] [address] [place] [address] OFFICE VISIT Date of Service: 12/16/24 MR#: [id number] Acct: [id number] Name: YOLIS VARELA Rep #: [id number] : 1985 Provider: Dr. 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 Yessy Molina MD) Health care maintenance Anxiety Surgical History H/O tubal ligation H/O wisdom tooth extraction H/O dilation and curettage Family History (Updated 09/17/24 @ 13:52 by Susana Hale MA) Mother Acute Crohn's disease Hypertension Osteoporosis Grandfather Diabetes Hypertension Myocardial infarction CHF (congestive heart failure) Cancer melanoma Aunt Multiple sclerosis Grandmother A-fib Cancer melanoma Social History (Updated 09/17/24 @ 13:52 by Susana Hale MA) adopted: No household members: spouse and children number of children: 2 current occupational status: employed current occupation: [employer] pets and animals: Yes (1) pets and animals: dog(s) sexually active: Yes Smoking Status: Never smoker alcohol intake: never substance use type: does not use caffeine: No seatbelt use: always do you feel safe at home: Yes HPI HPI Chief Complaint: Follow-up chronic conditions Details: YOLIS VARELA, is a 39 F who presents to the office today for follow-up of her chronic conditions. No acute concerns at this time. History of hypertension, initial and repeat blood pressure today elevated. She states that she is taking her medication consistently. Has had some stressors lately. No chest pain, palpitation shortness of breath. Other chronic medical conditions are stable. ROS Const Constitutional: No body ache, chills, excessive sweating, fatigue, fever(s), frequent falls, headache(s), snoring, weakness or change in appetite Eyes Eyes: No blurry vision, change in vision, bulging eyes, floaters, visual disturbances, eye pain or Light sensitivity ENT ENT: No abnormal hearing, ear or mastoid pain, tinnitus, balance problems, nosebleed/epistaxis, nasal congestion, headache(s), neck pain or sore throat Resp Respiratory: No cough, excessive phlegm production, pain on inspiration, shortness of breath, snoring or wheezing Cardio Cardiology: No chest pain at rest, chest pain with exertion, excessive sweating, dyspnea on exertion, lightheadedness, orthopnea or palpitations Gastro GI: No abdominal pain, change in bowel habits, constipation, cramping, diarrhea, nausea/dyspepsia or vomiting Genitourinary-Female: No burning urination, painful urination, urinary incontinence or urinary frequency Musc Musculoskeletal: No abnormal gait, joint pain, back pain, limited range of motion, muscle weakness, neck pain or numbness Skin Skin: No dry skin, redness, excessive hair growth, yellowing of the eye, lesions, itchy eyes, rash or wounds Neuro Neurology: No abnormal gait, abnormal hearing, behavioral changes, unsteady gait/balance, weakness, frequent falls, headache(s), memory loss, numbness or visual disturbances Psych Psychiatric: No anxiety, No behavioral changes, No change in appetite, No depression, No memory loss and No Thoughts of harming yourself/Others Endo Endocrine: No cold intolerance, excessive sweating, fatigue, flushing, heat intolerance, increased thirst/drinking or increased hunger Aller/Imm Allergy/Immunologic: No itchy eyes, seasonal allergy symptoms, hives or wheezing Scotty/Lymp Hematologic/Lymphatic: No easy bleeding or easy bruising Exam Const General: cooperative, comfortable and no acute distress Orientation: alert, awake and oriented x3 HENMT Head: normal to inspection, normocephalic and atraumatic Ears: hearing grossly normal bilaterally Eyes General: appearance normal, both eyes and all related structures Neck Neck: normal visual inspection, full ROM, no lymphadenopathy and supple Neck mass: No Thyroid: th (more content not included)... Normal [facility] Internal Medicine Office Vis yudith 09-17-2024 Internal Medicine Office Visit [facility] [address] [place] [address] [place] [address] OFFICE VISIT Date of Service: 09/17/24 MR#: [id number] Acct: [id number] Name: YOLIS VARELA Rep #: [id number] : 1985 Provider: Dr. 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 Yessy Molina MD) Health care maintenance Anxiety Surgical History H/O tubal ligation H/O wisdom tooth extraction H/O dilation and curettage Family History (Updated 09/17/24 @ 13:52 by Susana Hale MA) Mother Acute Crohn's disease Hypertension Osteoporosis Grandfather Diabetes Hypertension Myocardial infarction CHF (congestive heart failure) Cancer melanoma Aunt Multiple sclerosis Grandmother A-fib Cancer melanoma Social History (Updated 09/17/24 @ 13:52 by Susana Hale MA) adopted: No household members: spouse and children number of children: 2 current occupational status: employed current occupation: [employer] pets and animals: Yes (1) pets and animals: dog(s) sexually active: Yes Smoking Status: Never smoker alcohol intake: never substance use type: does not use caffeine: No seatbelt use: always do you feel safe at home: Yes HPI HPI Chief Complaint: est care Details: YOLIS VARELA, is a 39 F who presents to the office today to establish/transfer care. Had previously seen/PA in this practice. History of hypertension. Diagnosed with hypertension at age of 25. History of preeclampsia with her first , was on labetalol for a year and then discontinued. Second was uneventful however, subsequently, developed hypertension. Has had some workup with no significant concerns. She denies any significant family history of hypertension except in her grandfather. Mother was just recently diagnosed with hypertension thought to be medication induced. No tobacco or significant alcohol use. She states that she stays active and pays close attention to his sodium intake. Currently at a BMI of 30.8 Follows up closely with her PROTECTION CONSULTANT at the [facility]. Mammogram and Pap up-to-date. ROS Const Constitutional: No body ache, chills, excessive sweating, fatigue, fever(s), frequent falls, headache(s), snoring, weakness or change in appetite Eyes Eyes: No blurry vision, change in vision, bulging eyes, floaters, visual disturbances, eye pain or Light sensitivity ENT ENT: No abnormal hearing, ear or mastoid pain, tinnitus, balance problems, nosebleed/epistaxis, nasal congestion, headache(s), neck pain or sore throat Resp Respiratory: No cough, excessive phlegm production, pain on inspiration, shortness of breath, snoring or wheezing Cardio Cardiology: No chest pain at rest, chest pain with exertion, excessive sweating, dyspnea on exertion, lightheadedness, orthopnea or palpitations Gastro GI: No abdominal pain, change in bowel habits, constipation, cramping, diarrhea, nausea/dyspepsia or vomiting Genitourinary-Female: No burning urination, painful urination, urinary incontinence or urinary frequency Musc Musculoskeletal: No abnormal gait, joint pain, back pain, limited range of motion, muscle weakness, neck pain or numbness Skin Skin: No dry skin, redness, excessive hair growth, yellowing of the eye, lesions, itchy eyes, rash or wounds Neuro Neurology: No abnormal gait, abnormal hearing, behavioral changes, unsteady gait/balance, weakness, frequent falls, headache(s), memory loss, numbness or visual disturbances Psych Psychiatric: No anxiety, No behavioral changes, No change in appetite, No depression, No memory loss and No Thoughts of harming yourself/Others Endo Endocrine: No cold intolerance, excessive sweating, fatigue, flushing, heat intolerance, increased thirst/drinking or increased hunger Aller/Imm Allergy/Immunologic: No itchy eyes, seasonal allergy symptoms, hives or wheezing Scotty/Lymp Hematologic/Lymphatic: No easy bleeding or easy bruising Exam Const Genera (more content not included)... Normal [facility] Parathyroid Scanon 4 Parathyroid scan [facility] [address] [place], [place] [id number] Parathyroid Scan MR#: [id number] Acct: [id number] Name: YOLIS VARELA Rep #: [id number] : 1985 F 39 From: Jossue Patricia PCP: Dr. Yessy Molina MD Status: REG CLI Study: Parathyroid Scan Date of Exam: 08/31/24 Exam# [id number] Ordering [place]: [place] [id number] CLINICAL: 39-year-old female with history of suspected parathyroid adenoma. 99m Tc SESTAMIBI DUAL PHASE PARATHYROID SCINTIGRAPHY COMPARISON: None available FINDINGS: Following the intravenous administration of 26.2 mCi of 99m Tc sestamibi, image acquisitions of the anterior neck at approximately 20 minutes and 3.0 hours post radiopharmaceutical provision reveal: 1. Immediate static blood pool acquisitions demonstrate uniform distribution of the radiopharmaceutical in the right-left thyroid colloid of a vaguely U-shaped thyroid gland. 2. Delayed images depict near complete washout of the radiotracer from the previously defined right and left thyroid colloid. NM/Parathyroid Scan IMPRESSION: 1. ABNORMAL 99m Tc SESTAMIBI PARATHYROID IMAGING DUAL PHASE EXAMINATION. 2. There is no definitive scintigraphic evidence of parathyroid adenoma on the present evaluation. Electronically Signed: Jossue Garner DO at 10:08 EST , CC: Dr. Yessy Molina MD; SALOMÓN Longo Mantel Craftsman: Signed Normal [facility] DBT Breast - bilateral reyes quezada 08-26-2024 IMPRESSION: There is no mammographic evidence of malignancy. Routine screening mammogram is recommended. Annual mammogram will be due in 1 year. BI-RADS Category 2: Benign RISK: Based on the Tyrer-Cuzick (TC) risk assessment model, this patient has a 7.9% lifetime risk of developing breast cancer, meaning they are at average risk for developing breast cancer. However, this is only an estimate based on available history provided on the patient's questionnaire. We encourage all patients to talk with their providers about these results, further recommendations for managing breast health, and appropriate supplemental screening options if the patient has dense breast tissue. Interpreting Radiologist: Noble Bloom M.D. Electronically signed on: 08/26/2024 Mantel Craftsman: SHAI Transcriedie Date/Time: Aug 26 2024 7:10A Dictated by: YULIANA GUZMAN DO This examination was interpreted and the report reviewed and electronically signed by: NOBLE BLOOM MD on Aug 26 2024 12:04PM [facility] DIVISION OF RADIOLOGY * * *Final Report* * * DATE OF EXAM: Aug 26 2024 7:34AM [facility] [id number] - [facility] SCREENING W [facility] / PROCEDURE REASON: multiple diagnoses * * * * Physician Interpretation * * * * RESULT: [address] [address] [place] [address] #[id number] - [facility] SCREENING W [facility] HISTORY: Patient is 39 years old and is seen for screening and is asymptomatic in both breasts. COMPARISON STUDIES: The present examination has been compared to prior imaging studies dated 05/03/2022 and 07/30/2023 (mammogram). MAMMOGRAM TECHNIQUE: The study was acquired using full field digital technology and interpreted from soft copy. Digital Breast Tomosynthesis (DBT) images were obtained and used to assist in the interpretation of this examination. Computer-aided detection was utilized by the radiologist in the interpretation of this examination. MAMMOGRAM FINDINGS: The breasts are heterogeneously dense, which may obscure small masses. There is a stable focal asymmetry in the upper outer quadrant of the left breast, posterior depth. No suspicious masses, calcifications or other abnormalities are seen in either breast. DIVISION OF RADIOLOGY Provider, Fermin hurst [place] - 08/26/2024 * * *Final Report* * * DATE OF EXAM: Aug 26 2024 7:34AM [facility] [id number] - [facility] SCREENING W [facility] / PROCEDURE REASON: multiple diagnoses * * * * Physician Interpretation * * * * RESULT: [address] [address] [place] [address] #[id number] - [facility] SCREENING W [facility] HISTORY: Patient is 39 years old and is seen for screening and is asymptomatic in both breasts. COMPARISON STUDIES: The present examination has been compared to prior imaging studies dated 05/03/2022 and 07/30/2023 (mammogram). MAMMOGRAM TECHNIQUE: The study was acquired using full field digital technology and interpreted from soft copy. Digital Breast Tomosynthesis (DBT) images were obtained and used to assist in the interpretation of this examination. Computer-aided detection was utilized by the radiologist in the interpretation of this examination. MAMMOGRAM FINDINGS: The breasts are heterogeneously dense, which may obscure small masses. There is a stable focal asymmetry in the upper outer quadrant of the left breast, posterior depth. No suspicious masses, calcifications or other abnormalities are seen in either breast. IMPRESSION IMPRESSION: There is no mammographic evidence of malignancy. Routine screening mammogram is recommended. Annual mammogram will be due in 1 year. BI-RADS Category 2: Benign RISK: Based on the Tyrer-Cuzick (TC) risk assessment model, this patient has a 7.9% lifetime risk of developing breast cancer, meaning they are at average risk for developing breast cancer. However, this is only an estimate based on available history provided on the patient's questionnaire. We encourage all patients to talk with their providers about these results, further recommendations for managing breast health, and appropriate supplemental screening options if the patient has dense breast tissue. Interpreting Radiologist: Noble Bloom M.D. Electronically signed on: 08/26/2024 Mantel Craftsman: SHAI Transcribe Date/Time: Aug 26 2024 7:10A Dictated by: YULIANA GUZMAN DO This examination was interpreted and the report reviewed and electronically signed by: NOBLE BLOOM MD on Aug 26 2024 12:04PM EST [facility] Radiology Study observation (narrative) [facility] DBT Breast - bilateral scree ningOrdered By: Ccf Provider on 08-26-2024 [facility] SCREENING W [facility]Oon 08-26 [facility] SCREENING [facility] * * *Final Report* * * DATE OF EXAM: Aug 26 2024 7:34AM [facility] 0582 - [facility] SCREENING [facility] / PROCEDURE REASON: multiple diagnoses * * * * Physician Interpretation * * * * RESULT: [address] [address] [place] [address] #[id number] - [facility] SCREENING W [facility] HISTORY: Patient is 39 years old and is seen for screening and is asymptomatic in both breasts. COMPARISON STUDIES: The present examination has been compared to prior imaging studies dated 05/03/2022 and 07/30/2023 (mammogram). MAMMOGRAM TECHNIQUE: The study was acquired using full field digital technology and interpreted from soft copy. Digital Breast Tomosynthesis (DBT) images were obtained and used to assist in the interpretation of this examination. Computer-aided detection was utilized by the radiologist in the interpretation of this examination. MAMMOGRAM FINDINGS: The breasts are heterogeneously dense, which may obscure small masses. There is a stable focal asymmetry in the upper outer quadrant of the left breast, posterior depth. No suspicious masses, calcifications or other abnormalities are seen in either breast. IMPRESSION: There is no mammographic evidence of malignancy. Routine screening mammogram is recommended. Annual mammogram will be due in 1 year. BI-RADS Category 2: Benign RISK: Based on the Tyrer-Cuzick (TC) risk assessment model, this patient has a 7.9% lifetime risk of developing breast cancer, meaning they are at average risk for developing breast cancer. However, this is only an estimate based on available history provided on the patient's questionnaire. We encourage all patients to talk with their providers about these results, further recommendations for managing breast health, and appropriate supplemental screening options if the patient has dense breast tissue. Interpreting Radiologist: Noble Bloom M.D. Electronically signed on: 08/26/2024 Mantel Craftsman: SHAI Transcribe Date/Time: Aug 26 2024 7:10A Dictated by: YULIANA GUZMAN, DO This examination was interpreted and the report reviewed and electronically signed by: NOBLE BLOOM MD on Aug 26 2024 12:04PM EST [id number] Normal [facility] CNOVon 08-04-2024 CNOV Office Visit (OBGYWM ) REYNALDOYOLIS Ismael ([id number]) 1985 F Date Time Provider Department 08/04/24 7:00 AM SHELLY MERAZ OBGYWIsmael During your visit today, we recorded the following information about you: Blood pressure Weight Height Last Period 126/74 79.4 kg 1.6 m 07/23/24 Shelly Meraz APRN.CONFIDENTIAL SECRETARY 08/04/2024 7:41 AM Signed Yolis is a 39 year old who presents for an annual gynecologic exam without complaints. Menses: cycles every 25-30 days and 4-5 days of flow. Contraception: tubal sterilization HPV vaccine: No Last Pap: 08/10/2023 normal HPV: 08/02/2023 negative History of abnormal pap: No Last mammogram: 2022 asymmetry - needed additional imaging - doesn't look like she got the additional imaging Sexually active: Yes Pain with intercourse: No Postcoital bleeding: No OB History T1 L2 SAB2 IAB0 Ectopic0 Multiple0 Live Births2 Cloth Coverer History LMP: 07/23/2024 (Exact Date), Having periods Age at Menarche: Age at First : Age at Menopause: Cloth Coverer History Comments: Sexual Activity: Yes; Male Contraception: [...] Grandmother Lipids Paternal Grandmother Heart Paternal Grandfather [place] Hypertension Paternal Grandfather Crohn's Disease Son Lipids Paternal Aunt Hypertension Paternal Aunt Hypertension Paternal Uncle Breast Cancer Other MATERNAL CANCER SOCIAL HISTORY Social History Tobacco Use Smoking status: Never Smokeless tobacco: Never Vaping Use Vaping status: Never Used Substance Use Topics Alcohol use: Yes Comment: RARELY BUT NOT WHILE Drug use: No REVIEW OF SYSTEMS Abdomen: No abdominal pain, nausea, vomiting, diarrhea, or constipation. No bloating, early satiety, indigestion, or increased flatulence. Bladder: No dysuria, gross hematuria, urinary frequency, urinary urgency, or incontinence. Breast: No breast lumps, nipple d/c, overlying skin changes, redness or skin retraction. Allergies and current medication updated:Yes SENSITIVE EXAM: The sensitive examination was discussed with the Patient or Patient's Authorized Rn Bone Marrow Transplant. As applicable, any other physician, advance practice provider, medical student, or other health professional student that will be observing or involved in the sensitive examination for educational or training purposes was discussed with the Patient or Authorized Rn Bone Marrow Transplant. The Patient or Authorized Rn Bone Marrow Transplant has agreed to proceed with the sensitive examination. (Sensitive examination includes inspection and/or palpation of the breasts, pelvis, prostate and anorectal regions). EXAM: BP 126/74 Ht 5' 3" (1.60m) Wt 175 lb (79.4kg) LMP 07/23/2024 BMI 31.01 kg/(m2). GENERAL: pleasant, female in no apparent [...] external genitalia normal, normal Bartholin's glands, urethra, [place]'s glands, no vulvar lesions, no cervical lesions, good vaginal support, physiologic discharge present, normal appearing perineal body and perianal region BIMANUAL: uterus normal size, shape and consistency, no adnexal masses, and non-tender RECTOVAGINAL: deferred. NEURO: alert and oriented x3,exam grossly non-focal EXTREMITIES: normal ASSESSMENT/PLAN: 1) Health maintenance: Pap/HPV up to date. Mammogram ordered. Nutrition, exercise and routine health maintenance exams reviewed. Calcium/Vitamin D supplementation information provided. 2) Contraception: tubal sterilization. Contraceptive options reviewed and information provided. 3) STD screening: Declined STD check. 4) Follow up one year or sooner as needed Shelly Meraz APRN.CONFIDENTIAL SECRETARY Allergies As of Date: 08/04/2024 (No Known Allergies) Date Reviewed: 08/04/2024 Reviewed by: Hugo Segal MA - Fully Assessed Primary Visit Diagnosis:Encounter for gynecological examination (general) (routine) without abnormal findings [Z01.419] Other Visit Diagnoses:Encounter for screening mammogram for breast cancer [Z12.3 (more content not included)... Normal [facility] [place] 08-04-2024 CNPN Telephone (4CQ) YOLIS VARELA ([id number]) 1985 F Date Time Provider Department 08/04/24 SHELLY MERAZ 4CQ During your visit today, we recorded the following information about you: Violeta Culp 08/04/2024 7:32 AM Signed Patient is scheduled for Screening mammogram with [facility] 08/26/2024. I saw the order for next year but patient's last Mammo was 07/30/2023. [address] you please place another Mammogram order for this year as well? TRENA Easton Tara, RN 08/04/2024 8:16 AM Signed Mammogram order pended. Please file and will link to scheduled mammogram appt. AFSHIN Dailey Renee, APRN.NAYA 08/04/2024 8:22 AM Signed Already filed this morning. Shelly Meraz APRN.CONFIDENTIAL SECRETARY Jenniffer Lux RN 08/04/2024 8:29 AM Signed Linked order to appt. Jenniffer Lux RN Allergies As of Date: 08/04/2024 (No Known Allergies) Date Reviewed: 08/04/2024 Reviewed by: Hugo Segal MA - Fully Assessed Reason for Visit: Orders [681] Primary Visit Diagnosis:Breast screening [Z12.39] Prescriptions as of 08/04/2024 - valsartan (DIOVAN) 160 mg tablet Take 160 mg by mouth once daily. - multivitamin (DAILY MULTI-VITAMIN) ORAL tablet as directed. Problem List As Of Date 08/04/2024 Noted Resolved Supervision of other normal [Z34.80] 08/16/2006 02/09/2011 Hypertension [I10] 10/25/2010 Pilonidal cyst with abscess [L05.01] 02/17/2014 03/28/2017 Calculus of gallbladder without cholecystitis w*03/28/2017 Encounter Status:Closed by JENNIFFER LUX on 08/04/24 Normal [facility] Basic Metabolic Profile (BMP )on 07-22-2024 BUN/CRE 24.2 RATIO High 10-20 [facility] Comment on above: Performed By: #### L 500.2500 ####[facility] [address] [place], [address] CA,Total 9.5 mg/dL Normal 8.5-10.1 [facility] Comment on above: Performed By: #### L 500.2500 ####[facility] [address] [place], [address] Chloride [Moles/Vol] 107 mmol/L Normal 98-107 [facility] Comment on above: Performed By: #### L 500.2500 ####[facility] [address] [place], [address] CO2 [Moles/Vol] 27.0 mmol/L Normal 21.0-32.0 [facility] Comment on above: Performed By: #### L 500.2500 ####[facility] [address] [place], [address] Creatinine [Mass/Vol] 0.74 mg/dL Normal 0.55-1.02 [facility] Comment on above: Result Comment: The validity of the calculated GFR GFRAA in patients over 70 years has not been determined. Clinical correlation is essential. Performed By: #### L 500.2500 ####[facility] [address] [place], [address] EST GFR - AA 110 mL/min Normal >60 [facility] Comment on above: Result Comment: Afri can Nigerian GFR Calc Performed By: #### L 500.2500 ####[facility] [address] [place], [address] GAP 5 Normal 5-15 [facility] Comment on above: Performed By: #### L 500.2500 ####[facility] [address] [place], [address] GFR/1.73 sq M.predicted among non-blacks MDRD (S/P/Bld) [Vol rate/Area] 91 mL/min/{1.73_m2} Normal >60 [facility] Comment on above: Result Comment: Non- GFR Calc Performed By: #### L 500.2500 ####[facility] [address] [place], [address] Glucose [Mass/Vol] 90 mg/dL Normal 74-106 [facility] Comment on above: Performed By: #### L 500.2500 ####[facility] [address] [place], [address] Potassium [Moles/Vol] 4.3 mmol/L Normal 3.5-5.1 [facility] Comment on above: Performed By: #### L 500.2500 ####[facility] [address] [place], [address] Sodium [Moles/Vol] 139 mmol/L Normal 136-145 [facility] Comment on above: Performed By: #### L 500.2500 ####[facility] [address] [place], [place], [address] Urea nitrogen [Mass/Vol] 18 mg/dL Normal 7-18 [facility] Comment on above: Performed By: #### L 500.2500 ####[facility] [address] [place], [address] Internal Medicine Office Vis iton 07-22-2024 Internal Medicine Office Visit [facility] [address] [place] [address] [place] [address] OFFICE VISIT Date of Service: 07/22/24 MR#: [id number] Acct: [id number] Name: YOLIS VARELA Rep #: [id number] : 1985 Provider: SALOMÓN Longo Age/Sex: 39/F Location: [facility] Status: Signed Intake Vital Signs 06/23/24 10:48 07/22/24 08:40 Height 5 ft 3 in 5 ft 3 in Weight: 172 lb BMI 30.4 BP 140/86 H Blood Pressure Location Lt brachial Position Sitting Respiration 16 Pulse 76 Pulse Source Monitor Temp 97.2 F L Temp Source Temporal Pulse Oximetry (%) 99 Oxygen Delivery Method room air Intake Visit Reasons: 1 m fu for bp Aeronautical Project Engineer Required: No Is patient in pain?: No Allergies No Known Allergies Allergy (Verified 07/22/24 08:34) Medications ???Medication ???Instructions ???Recorded ???Confirmed ???Type valsartan 160 mg tablet 160 mg PO QDAY #90 tabs 06/25/24 07/22/24 Rx Nurse's Note: Has been doing good on bp med, no side effects states bps have been running good at home. [facility] Anxiety Surgical History H/O tubal ligation H/O wisdom tooth extraction H/O dilation and curettage Family History Mother Acute Crohn's disease Hypertension Osteoporosis Grandfather Diabetes Hypertension Myocardial infarction CHF (congestive heart failure) Aunt Multiple sclerosis Grandmother A-fib Social History adopted: No household members: spouse and children number of children: 2 current occupational status: employed current occupation: [employer] pets and animals: Yes (1) pets and animals: dog(s) sexually active: Yes Smoking Status: Never smoker alcohol intake: never substance use type: does not use caffeine: No frequency: 3-4 times per week do you feel safe at home: Yes HPI HPI Details: YOLIS VARELA, is a 39 F who presents to the office today for recheck of her blood pressure. She states that she has been on blood pressure medications since she was 25. She does not have a significant family history really (mother has some minor elevations having just started meds in the past year). Patient states that she was a big caffeine person but did stop for a while but didn't see a difference and so has been drinking coffee again. No nicotine use at all No ETOH use Patient was exercising 3 days per week but hasn't much recently. Walking is her method of movement. ROS Const Constitutional: No body ache, chills, excessive sweating, fatigue, fever(s), frequent falls, headache(s), snoring, weakness, sleep problems or change in appetite Eyes Eyes: No blurry vision, change in vision, eye pain or Light sensitivity ENT ENT: No abnormal hearing, ear or mastoid pain, tinnitus, nasal congestion, headache(s), neck pain or sore throat Resp Respiratory: No cough, shortness of breath, snoring or wheezing Cardio Cardiology: No chest pain at rest, chest pain with exertion, excessive sweating, shortness of breath, dyspnea on exertion, lightheadedness, orthopnea or palpitations Gastro GI: No abdominal pain, change in bowel habits, constipation, cramping, diarrhea, nausea/dyspepsia or vomiting Genitourinary-Female: No burning urination, painful urination, urinary incontinence, urinary frequency, abnormal vaginal bleeding or pelvic pain Musc Musculoskeletal: No abnormal gait, joint pain, back pain, limited range of motion, neck pain or numbness Skin Skin: No dry skin, redness, lesions, itchy eyes, rash or wounds Neuro Neurology: No abnormal gait, abnormal hearing, weakness, frequent falls, headache(s), memory loss or numbness Psych Psychiatric: No anxiety, No change in appetite, No depression, No memory loss and No Thoughts of harming yourself/Others Endo Endocrine: No cold intolerance, excessive sweating, fatigue, flushing, heat intolerance, increased thirst/drinking or increased hunger Aller/Imm Allergy/Immunologic: No itchy eyes, seasonal allergy symptoms, hives or wheezing Scotty/Lymp Hematologic/Lymphatic: No easy bleeding, easy bruising, enlarged lymph nodes or other Exam Const General: cooperative, healthy appearing, comfortable, no acute distress, well developed and well groomed Nutritional Appearance: average body habitus Orientation: alert, awake and oriented x3 HENMT Ears: hearing grossly normal bilaterally Eyes Pupils: PERRL Neck Neck: no lymphadenopathy, supple and nontender Neck mass: No Resp Effort Inspection: normal respiratory effort, able to speak in complete sentences, symmetric chest movement and normal respirat (more content not included)... Normal [facility] PTHINon 07-22-2024 PTH 18.4 pg/mL Normal 18.4-80.1 [facility] Comment on above: Performed By: #### L 509.1000 ####[facility] [address] [place], [address] Renal Artery Duplex Ultrasou ndon 07-08-2024 Renal Artery Duplex Ultrasound [facility] [address] [place] [address] Renal Artery Duplex Ultrasound 07/08/24 0816 MR#: [id number] Acct: [id number] Name: YOLIS VARELA Rep #: [id number] : 1985 39 From: Wang Jung MD Attending Dr: FELICIA Marrufo Status: REG C Ordering Dr: Nina Gao Date: 07/08/24 Location: [facility] Sex: F C Admitted: Reason For Study: HTN Right Renal Artery Left Renal Artery Right renal artery ostium Left renal artery ostium 67.2/25.6 152.7/47.4 RSV/EDV. PSV/EDV. Right renal artery proximal Left renal artery proximal PSV/EDV 144.0/36.4 PSV/EDV. 88.6/34.0 . Right renal artery mid 139.6/32.0 Left renal artery mid 76.6/35.7 PSV/EDV. PSV/EDV . Right renal artery distal Left renal artery distal 90.3/39.1 139.6/32.0 PSV/EDV. PSV/EDV. Right RAR 1.52. Left RAR 0.90. Right Renal Parenchyma Left Renal Parenchyma Upper Pole Medula 32.0/15.6 Left upper pole medulla 31.2/11.1 PSV/EDV. PSV/EDV . Right upper pole medulla EDR 0.50 . Left upper pole medulla EDR 0.40 . Right upper pole medulla R.I. Left upper pole medulla R.I. 0.64 . 0.51 . UP Cortex 21.2/8.4 PSV/EDV. Upper Lg Cortx 25.9/12.4 PSV/EDV. Left upper pole cortex EDR 0.40 . Right upper pole cortex EDR 0.50 . Left upper pole cortex R.I. 0.60 . Right upper pole cortex R.I. 0.52 . Left lower Pole medulla 27.6/10.2 Right lower Pole medulla 28.4/11.8 PSV/EDV . PSV/EDV . Left lower pole medulla EDR 0.40 . Right lower pole medulla EDR 0.40 . Left lower pole medulla R.I. 0.63 . Right lower pole medulla R.I. Lower Pole Cortx 23.0/10.2 PSV/EDV. 0.58 . Left lower pole cortex EDR 0.40 . Lower Pole Cortex 20.4/8.1 PSV/EDV. Left lower pole cortex R.I. 0.56 . Right lower pole cortex EDR 0.40 . Left Renal Hilar Right lower pole cortex R.I. 0.60 . LT Hilar avg 107.3/41.5 PSV/EDV . Right Renal Hilar Left hilar acceleration time 60 Right Hilar avg 59.3/19.0 PSV/EDV. m/sec. Right hilar acceleration time 70 Left Renal Dimensions m/sec. Left kidney size 10.94 cm . Right Renal Dimensions Left cortical dimension 1.30 cm . Right kidney size 12.15 cm . Right cortical dimension 1.11 cm . Aorta Proximal abdominal aorta 2.01 x 2.01 cm . Proximal abdominal aorta peak systolic velocity is 100.2 cm/sec . Distal abdominal aorta 1.43 x 1.50 cm . Distal abdominal aorta peak systolic velocity is 105.2 cm/sec . VL/Renal Artery Duplex Ultrasound Interpretation Summary Right renal artery patent with normal velocities and no evidence of stenosis. Left renal artery patent with normal velocities and no evidence of stenosis. Right renal vein patent. Left renal vein patent. Right kidney normal in size. Left kidney normal in size. Ordering Physician: Nina Gao Referring Physician: Nina Gao Performed By: Clint Acosta, T 07/08/241633 Date Wang Jung MD CC: FELICIA Gao Date Dictated: 07/08/24815 Date Transcribed: 07/08/241633 Mantel Craftsman: Signed Normal [facility] Kidney and Bladderon -21-2 024 Kidney and Bladder [facility] Imaging Services [address] [place], [place] [address], [place] [id number] Kidney and Bladder MR#: [id number] Acct: [id number] Name: YOLIS VARELA Rep #: [id number] : 1985 F 39 From: Damien lilly MD PCP: FELICIA Marrufo Status: REG CLI Study: Kidney and Bladder Date of Exam: 06/29/24 Exam# [id number] Ordering Dr: Nina Gao [id number] STUDY: RENAL ULTRASOUND - COMPLETE REASON FOR EXAM: Female, 39 years old. Nephrolithiasis, kidney cysts TECHNIQUE: Ultrasound evaluation of the kidneys was performed with real-time and static rachel-scale imaging. COMPARISON: None. FINDINGS: RIGHT KIDNEY: Normal location of the right kidney, which is normal in size. The right kidney measures 12.1 cm x 4.5 cm x 4.5 cm. There is a normal cortex of the right kidney. The renal cortex measures 1.1 cm. There is a 6 mm x 8 mm x 6 mm cyst in the upper pole There are no right renal calculi. There is no right hydronephrosis. DISTAL RIGHT URETER: There is non-visualization of the distal right ureter. There is no demonstrated right ureterovesical junction calculus. There is a visualized right ureteral jet. LEFT KIDNEY: Normal location of the left kidney, which is normal in size. The left kidney measures 10.7 cm x 4.4 cm x 5.6 cm. There is a normal cortex of the left kidney. The renal cortex measures 1.1 cm. There is a 9 mm x 7 mm x 10 mm cyst in the upper pole. There are no left renal calculi. There is no left hydronephrosis. DISTAL LEFT URETER: There is non-visualization of the distal left ureter. There is no demonstrated left ureterovesical junction calculus. There is a visualized left ureteral jet. BLADDER: The distended urinary bladder has a volume of 652 ml. There is a normal wall thickness of the distended urinary bladder. There is no demonstrated mass within the urinary bladder. There are no demonstrated bladder calculi. US/Kidney and Bladder IMPRESSION: Normal ultrasound of the kidneys and urinary bladder. Small cysts in the upper pole of both kidneys. Electronically Signed: Damien Lewis MD at 14:48 EDT , CC: FELICIA Gao Mantel Craftsman: Signed Normal [facility] Thyroid Antibodieson 024 TG AB < 1.0 Normal 0.0-0.9 [facility] Comment on above: Order Comment: Speci men Comment: A duplicate report has been generateddue to demographicSpecimen Comment: updates. Result Comment: Thyr oglobulin Antibody measured by [employer] Method[employer] It should be noted that the presence of thyroglobulin antibodies may not be pathogenic nor diagnostic, especially at very low levels. The assay credit advisor has found that four percent of individuals without evidence of thyroid disease or autoimmunity will have positive TgAb levels up to 4 IU/mL. Performed at: [address] [id number] Journeyman Wireman: Rajat Nguyen PhD, Phone: [phone] Performed By: #### L 100.0100, L506.0400, L400.0001, L501.9520, L500.4050, L3300.6750, L502.0500 ####[facility] [address] [place], [place], [id number] THYR PEROX AB 14 IU/mL Normal 0-34 [facility] Comment on above: Order Comment: Speci nino Comment: A duplicate report has been generateddue to demographicSpecimen Comment: updates. Performed By: #### L 100.0100, L506.0400, L400.0001, L501.9520, L500.4050, L3300.6750, L502.0500 ####[facility] [address] [place], [place], [id number] CBC W/Diff, Automatedon 06-09 Absolute Lymph 2.64 X10 3/uL Normal 0.83-4.51 [facility] Comment on above: Performed By: #### L 100.0100, L506.0400, L400.0001, L501.9520, L500.4050, L3300.6750, L502.0500 #### [facility] [address] [place], [address] Absolute Neut 5.3 X10 3/uL Normal 2.0-7.7 [facility] Comment on above: Performed By: #### L 100.0100, L506.0400, L400.0001, L501.9520, L500.4050, L3300.6750, L502.0500 #### [facility] [address] [place], [address] Basophils/100 WBC (Bld) 0.3 % Normal 0-1 [facility] Comment on above: Performed By: #### L 100.0100, L506.0400, L400.0001, L501.9520, L500.4050, L3300.6750, L502.0500 #### [facility] [address] [place], [address] Eosinophils/100 WBC (Bld) 1.4 % Normal 0-5 [facility] Comment on above: Performed By: #### L 100.0100, L506.0400, L400.0001, L501.9520, L500.4050, L3300.6750, L502.0500 #### [facility] [address] [place], [address] Erythrocyte distribution width (RBC) [Ratio] 11.9 % Normal 11.6-14.6 [facility] Comment on above: Performed By: #### L 100.0100, L506.0400, L400.0001, L501.9520, L500.4050, L3300.6750, L502.0500 #### [facility] [address] [place], [address] Hematocrit (Bld) [Volume fraction] 42.6 % Normal 37-47 [facility] Comment on above: Performed By: #### L 100.0100, L506.0400, L400.0001, L501.9520, L500.4050, L3300.6750, L502.0500 #### [facility] [address] [place], [address] Hemoglobin (Bld) [Mass/Vol] 14.4 g/dL Normal 12.0-15.0 [facility] Comment on above: Performed By: #### L 100.0100, L506.0400, L400.0001, L501.9520, L500.4050, L3300.6750, L502.0500 #### [facility] [address] [facility] [place], [address] IG% 0.200 Normal 0.0-0.9 [facility] Comment on above: Result Comment: IG% - Immature Granulocytes (promyelocytes, myelocytes and metamyelocytes) > 1% indicates that a LEFT SHIFT is Present. Performed By: #### L 100.0100, L506.0400, L400.0001, L501.9520, L500.4050, L3300.6750, L502.0500 #### [facility] [address] [place], [address] Lymphocytes/100 WBC (Bld) 30.1 % Normal 19-41 [facility] Comment on above: Performed By: #### L 100.0100, L506.0400, L400.0001, L501.9520, L500.4050, L3300.6750, L502.0500 #### [facility] [address] [place], [address] MCH (RBC) [Entitic mass] 30.5 pg Normal 27.0-32.0 [facility] Comment on above: Performed By: #### L 100.0100, L506.0400, L400.0001, L501.9520, L500.4050, L3300.6750, L502.0500 #### [facility] [address] [place], [address] MCHC (RBC) [Mass/Vol] 33.8 g/dL Normal 32-36 [facility] Comment on above: Performed By: #### L 100.0100, L506.0400, L400.0001, L501.9520, L500.4050, L3300.6750, L502.0500 #### [facility] [address] [place], [address] MCV (RBC) [Entitic vol] 90.3 fL Normal 81-99 [facility] Comment on above: Performed By: #### L 100.0100, L506.0400, L400.0001, L501.9520, L500.4050, L3300.6750, L502.0500 #### [facility] [address] [place], [address] Monocytes/100 WBC (Bld) 7.1 % Normal 0-10 [facility] Comment on above: Performed By: #### L 100.0100, L506.0400, L400.0001, L501.9520, L500.4050, L3300.6750, L502.0500 #### [facility] [address] [place], [address] Neutrophils/100 WBC (Bld) 60.9 % Normal 47-70 [facility] Comment on above: Performed By: #### L 100.0100, L506.0400, L400.0001, L501.9520, L500.4050, L3300.6750, L502.0500 #### [facility] [address] [place], [address] Nucleated RBC (Bld) [#/Vol] 0 10*3/uL Normal 0-5 [facility] Comment on above: Performed By: #### L 100.0100, L506.0400, L400.0001, L501.9520, L500.4050, L3300.6750, L502.0500 #### [facility] [address] [place], [address] Platelet mean volume (Bld) [Entitic vol] 9.8 fL Normal 6.2-12.0 [facility] Comment on above: Performed By: #### L 100.0100, L506.0400, L400.0001, L501.9520, L500.4050, L3300.6750, L502.0500 #### [facility] [address] [place], [address] Platelets (Bld) [#/Vol] 302 10*3/uL Normal 150-450 [facility] Comment on above: Performed By: #### L 100.0100, L506.0400, L400.0001, L501.9520, L500.4050, L3300.6750, L502.0500 #### [facility] [address] [place], [address] RBC (Bld) [#/Vol] 4.72 10*6/uL Normal 4.2-5.4 [facility] Comment on above: Performed By: #### L 100.0100, L506.0400, L400.0001, L501.9520, L500.4050, L3300.6750, L502.0500 #### [facility] [address] [place], [address] RDW SD 39.3 fl Normal 35.1-43.9 [facility] Comment on above: Performed By: #### L 100.0100, L506.0400, L400.0001, L501.9520, L500.4050, L3300.6750, L502.0500 #### [facility] [address] [place], [address] WBC (Bld) [#/Vol] 8.8 10*3/uL Normal 4.4-11.0 [facility] Comment on above: Performed By: #### L 100.0100, L506.0400, L400.0001, L501.9520, L500.4050, L3300.6750, L502.0500 #### [facility] [address] [place], [address] Comprehensive Metabolic Prof ilon 06-23-2024 Albumin [Mass/Vol] 4.2 g/dL Normal 3.2-5.0 [facility] Comment on above: Performed By: #### L 100.0100, L506.0400, L400.0001, L501.9520, L500.4050, L3300.6750, L502.0500 #### [facility] [address] [place], [address] Albumin/Globulin [Mass ratio] 1.0 {ratio} Normal 0.9-2.4 [facility] Comment on above: Performed By: #### L 100.0100, L506.0400, L400.0001, L501.9520, L500.4050, L3300.6750, L502.0500 #### [facility] [address] [place], [address] ALK P 44 U/L Low 45-117 [facility] Comment on above: Performed By: #### L 100.0100, L506.0400, L400.0001, L501.9520, L500.4050, L3300.6750, L502.0500 #### [facility] [address] [place], [address] ALT [Catalytic activity/Vol] 17 U/L Normal 13-56 [facility] Comment on above: Performed By: #### L 100.0100, L506.0400, L400.0001, L501.9520, L500.4050, L3300.6750, L502.0500 #### [facility] [address] [place], [address] AST [Catalytic activity/Vol] 6 U/L Low 15-37 [facility] Comment on above: Performed By: #### L 100.0100, L506.0400, L400.0001, L501.9520, L500.4050, L3300.6750, L502.0500 #### [facility] [address] [place], [address] Bilirubin [Mass/Vol] 0.80 mg/dL Normal 0.20-1.00 [facility] Comment on above: Result Comment: For patients on eltrombopag therapy, use of Dimension [place] TBIL is not recommended. Performed By: #### L 100.0100, L506.0400, L400.0001, L501.9520, L500.4050, L3300.6750, L502.0500 #### [facility] [address] [place], [address] BUN/CRE 13.8 RATIO Normal 10-20 [facility] Comment on above: Performed By: #### L 100.0100, L506.0400, L400.0001, L501.9520, L500.4050, L3300.6750, L502.0500 #### [facility] [address] [place], [address] CA,Total 10.5 mg/dL High 8.5-10.1 [facility] Comment on above: Performed By: #### L 100.0100, L506.0400, L400.0001, L501.9520, L500.4050, L3300.6750, L502.0500 #### [facility] [address] [place], [address] Chloride [Moles/Vol] 103 mmol/L Normal 98-107 [facility] Comment on above: Performed By: #### L 100.0100, L506.0400, L400.0001, L501.9520, L500.4050, L3300.6750, L502.0500 #### [facility] [address] [place], [address] CO2 [Moles/Vol] 26.0 mmol/L Normal 21.0-32.0 [facility] Comment on above: Performed By: #### L 100.0100, L506.0400, L400.0001, L501.9520, L500.4050, L3300.6750, L502.0500 #### [facility] [address] [place], [address] Creatinine [Mass/Vol] 0.80 mg/dL Normal 0.55-1.02 [facility] Comment on above: Result Comment: The validity of the calculated GFR GFRAA in patients over 70 years has not been determined. Clinical correlation is essential. Performed By: #### L 100.0100, L506.0400, L400.0001, L501.9520, L500.4050, L3300.6750, L502.0500 #### [facility] [address] [place], [address] EST GFR - AA 102 mL/min Normal >60 [facility] Comment on above: Result Comment: Afri can Nigerian GFR Calc Performed By: #### L 100.0100, L506.0400, L400.0001, L501.9520, L500.4050, L3300.6750, L502.0500 #### [facility] [address] [place], [address] GAP 7 Normal 5-15 [facility] Comment on above: Performed By: #### L 100.0100, L506.0400, L400.0001, L501.9520, L500.4050, L3300.6750, L502.0500 #### [facility] [address] [place], [address] GFR/1.73 sq M.predicted among non-blacks MDRD (S/P/Bld) [Vol rate/Area] 84 mL/min/{1.73_m2} Normal >60 [facility] Comment on above: Result Comment: Non- GFR Calc Performed By: #### L 100.0100, L506.0400, L400.0001, L501.9520, L500.4050, L3300.6750, L502.0500 #### [facility] [address] [place], [address] Globulin (S) [Mass/Vol] 4.0 g/dL Normal 2.2-4.2 [facility] Comment on above: Performed By: #### L 100.0100, L506.0400, L400.0001, L501.9520, L500.4050, L3300.6750, L502.0500 #### [facility] [address] [place], [address] Glucose [Mass/Vol] 87 mg/dL Normal 74-106 [facility] Comment on above: Performed By: #### L 100.0100, L506.0400, L400.0001, L501.9520, L500.4050, L3300.6750, L502.0500 #### [facility] [address] [place], [address] Potassium [Moles/Vol] 3.3 mmol/L Low 3.5-5.1 [facility] Comment on above: Performed By: #### L 100.0100, L506.0400, L400.0001, L501.9520, L500.4050, L3300.6750, L502.0500 #### [facility] [address] [place], [address] Sodium [Moles/Vol] 136 mmol/L Normal 136-145 [facility] Comment on above: Performed By: #### L 100.0100, L506.0400, L400.0001, L501.9520, L500.4050, L3300.6750, L502.0500 #### [facility] [address] [place], [address] T PROT 8.2 g/dL Normal 6.4-8.2 [facility] Comment on above: Performed By: #### L 100.0100, L506.0400, L400.0001, L501.9520, L500.4050, L3300.6750, L502.0500 #### [facility] [address] [place], [address] Urea nitrogen [Mass/Vol] 11 mg/dL Normal 7-18 [facility] Comment on above: Performed By: #### L 100.0100, L506.0400, L400.0001, L501.9520, L500.4050, L3300.6750, L502.0500 #### [facility] [address] [place], [address] Internal Medicine Office Vis yudith 06-23-2024 Internal Medicine Office Visit [facility] [address] [place], [place] [address] OFFICE VISIT Date of Service: 06/23/24 MR#: [id number] Acct: [id number] Name: REYNALDOYOLIS Ismael Rep #: [id number] : 1985 Provider: FELICIA quintana Age/Sex: 39/F Location: [facility] Status: Signed Intake Vital Signs 01/28/23 23:00 06/23/24 10:47 06/23/24 10:48 Height 5 ft 3 in 5 ft 2 in 5 ft 3 in Weight: 167 lb 167 lb BMI 30.5 29.5 BP 156/102 H Blood Pressure Location Lt brachial Position Sitting Respiration 16 Pulse 80 Pulse Source Monitor Temp 100 F H Temp Source Temporal Pulse Oximetry (%) 98 Oxygen Delivery Method room air Intake Visit Reasons: ACUTE BP ISSUES-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 Has stopped eating poorly, excercising, drinking caffeine, alcohol, never smoked. Did an EKG due to high bp, and was told that it was something small and we would wait to do anything and see if zoloft helped. States overall she doesn't feel great has a pretty consistent headache for a month or more. [facility] Medical History (Updated 06/23/24 @ 12:43 by FELICIA Marrufo) Anxiety Surgical History (Updated 06/23/24 @ 10:38 by Sloane Durbin MA) H/O tubal ligation H/O wisdom tooth extraction H/O dilation and curettage Family History (Updated 06/23/24 @ 10:50 by Sloane Durbin MA) Mother Acute Crohn's disease Hypertension Osteoporosis Grandfather Diabetes Hypertension Myocardial infarction CHF (congestive heart failure) Aunt Multiple sclerosis Grandmother A-fib Social History adopted: No household members: spouse and children number of children: 2 current occupational status: employed current occupation: [employer] pets and animals: Yes (1) pets and animals: dog(s) sexually active: Yes Smoking Status: Never smoker alcohol intake: never substance use type: does not use caffeine: No frequency: 3-4 times per week do you feel safe at home: Yes HPI HPI Details: YOLIS VARELA, is a 39 F who presents to the office today for an acute visit as a new patient to discuss blood pressure management. She is former patient of Dr. Packer. She reports a long history of HTN, first dx in 2003 as preeclampsia during first . She states she took antihypertensives for 1 year post delivery then was able to discontinue. She had a normal in 2006. In 2008, she states she underwent tubal ligration and during PACU recovery, she developed HTN and has been on antihypertensives ever since. She reports metoprolol in the past, lisinopril caused a dry cough, and amlodipine caused swelling. She has been prescribed losartan 50-HCTZ 12.5 for the past several years with moderate BP control but states within the past 1-2 months BP has increased. She had a physical completed at her employer and was told BP was 170- 106. She f/u last week with previous PCP and losartan-HCTZ dose was increased to 100-25. She was also placed on zoloft for anxiety one month ago. Since increasing BP medication, she continues to have high readings at home and is concerned for a secondary cause. She reports a clean diet, low sodium, no caffeine, no tobacco and no alcohol. She exercises 3x/week. She does endorse snoring and waking due to snoring and daytime fatigue. She was recommended to have sleep study by previous PCP but did not complete this. She is also concerned regarding a medullary sponge kidney as she was told she had this several years ago. She does have a history of nephrolithiasis and recently has been experiencing flank pain. She denies recurrent UTI or current UTI sx. She additional denies chest pain, tightness, syncope or peripheral edema. She has occasional palpitations. She felt more short of breath climbing the stairs one day recently, but no reoccurrences. HTN: Checks BP at home: yes BP has been rangin/86 this morning without medication Medications: losartan 100-HCTZ 25 Medication adherence:1005 Family history of HTN: yes- mother dx in 60s No chest pain, SOB, edema, PND, headaches, or vision changes. She was recently dx with anxiety and placed on zoloft. She has been taking the medication for four weeks and feels it is helping. She does receive free counseling through employer and plans to pu (more content not included)... Normal [facility] Microalbumin,Random Urineon 06-23-2024 MICROALBUMIN,UR < 5.0 Normal NO RANGE EST. [facility] Comment on above: Performed By: #### L 100.0100, L506.0400, L400.0001, L501.9520, L500.4050, L3300.6750, L502.0500 #### [facility] [address] [place], [address] T4 Free Directon 06-23-2024 T4 FREE DIRECT 0.93 ng/dL Normal 0.76-1.46 [facility] Comment on above: Performed By: #### L 100.0100, L506.0400, L400.0001, L501.9520, L500.4050, L3300.6750, L502.0500 ####[facility] [address] [place], [address] Thyroid Stim Hormone (TSH)on 06-23-2024 TSH 1.340 uIU/mL Normal 0.358-3.740 [facility] Comment on above: Performed By: #### L 100.0100, L506.0400, L400.0001, L501.9520, L500.4050, L3300.6750, L502.0500 #### [facility] [address] [place], [address] Urinalysis, Completeon 06-23 BACTERIA 1+ /hpf Normal None Seen [facility] Comment on above: Order Comment: COLLE CTOR TO SPECIFY Performed By: #### L 100.0100, L506.0400, L400.0001, L501.9520, L500.4050, L3300.6750, L502.0500 #### [facility] [address] [place], [address] EPI,SQUAMOUS 0-5 SEEN Normal 5-10 [facility] Comment on above: Order Comment: COLLE CTOR TO SPECIFY Performed By: #### L 100.0100, L506.0400, L400.0001, L501.9520, L500.4050, L3300.6750, L502.0500 #### [facility] [address] [place], [address] Mucus Ql (Urine sed) 0 SEEN Normal [facility] Comment on above: Order Comment: COLLE CTOR TO SPECIFY Performed By: #### L 100.0100, L506.0400, L400.0001, L501.9520, L500.4050, L3300.6750, L502.0500 #### [facility] [address] [place], [address] RBC 0 SEEN Normal 0-5 [facility] Comment on above: Order Comment: COLLE CTOR TO SPECIFY Performed By: #### L 100.0100, L506.0400, L400.0001, L501.9520, L500.4050, L3300.6750, L502.0500 #### [facility] [address] [place], [address] WBC 0 SEEN Normal 0-5 [facility] Comment on above: Order Comment: COLLE CTOR TO SPECIFY Performed By: #### L 100.0100, L506.0400, L400.0001, L501.9520, L500.4050, L3300.6750, L502.0500 #### [facility] [address] [place], [address] Basic Metabolic Profile (BMP )on 04-15-2024 BUN/CRE 16.3 RATIO Normal 10-20 [facility] Comment on above: Performed By: #### L 500.2500 #### [facility] [address] [place], [address] CA,Total 9.0 mg/dL Normal 8.5-10.1 [facility] Comment on above: Performed By: #### L 500.2500 #### [facility] [address] [place], [address] Chloride [Moles/Vol] 104 mmol/L Normal 98-107 [facility] Comment on above: Performed By: #### L 500.2500 #### [facility] [address] [place], [address] CO2 [Moles/Vol] 29.0 mmol/L Normal 21.0-32.0 [facility] Comment on above: Performed By: #### L 500.2500 #### [facility] [address] [place], [address] Creatinine [Mass/Vol] 0.74 mg/dL Normal 0.55-1.02 [facility] Comment on above: Result Comment: The validity of the calculated GFR GFRAA in patients over 70 years has not been determined. Clinical correlation is essential. Performed By: #### L 500.2500 #### [facility] [address] [place], [address] EST GFR - AA 112 mL/min Normal >60 [facility] Comment on above: Result Comment: Afri can Nigerian GFR Calc Performed By: #### L 500.2500 #### [facility] [address] [place], [address] GAP 4 Low 5-15 [facility] Comment on above: Performed By: #### L 500.2500 #### [facility] [address] [place], [address] GFR/1.73 sq M.predicted among non-blacks MDRD (S/P/Bld) [Vol rate/Area] 92 mL/min/{1.73_m2} Normal >60 [facility] Comment on above: Result Comment: Non- GFR Calc Performed By: #### L 500.2500 #### [facility] [address] [place], [address] Glucose [Mass/Vol] 97 mg/dL Normal 74-106 [facility] Comment on above: Performed By: #### L 500.2500 #### [facility] [address] [place], [address] Potassium [Moles/Vol] 3.5 mmol/L Normal 3.5-5.1 [facility] Comment on above: Performed By: #### L 500.2500 #### [facility] [address] [place], [address] Sodium [Moles/Vol] 137 mmol/L Normal 136-145 [facility] Comment on above: Performed By: #### L 500.2500 #### [facility] [address] [place], [place], [id number] Urea nitrogen [Mass/Vol] 12 mg/dL Normal 7-18 [facility] Comment on above: Performed By: #### L 500.2500 #### [facility] [address] [place], [place], [id number] Basophil percentageOrdered B y: Dewey Packer on 10-14-2023 Chloride [Moles/Vol] 103 mmol/L 98-107 [facility] Cholesterol [Mass/Vol] 186 mg/dL <200 [facility] Comment on above: <200 mg/dL Desirable 200-240 mg/dL Borderline >240 mg/dL High Risk Glucose [Mass/Vol] 96 mg/dL 74-106 [facility] Potassium [Moles/Vol] 3.6 mmol/L 3.5-5.1 [facility] Sodium [Moles/Vol] 137 mmol/L 136-145 [facility] Triglyceride [Mass/Vol] 102 mg/dL <199 [facility] Comment on above: The drugs N-Acetylcy steine and Metamizole may falsely depress this assay.Serum Triglycerides Reference Interval Normal <150 mg/dL Borderline high 150 - 199 mg/dL High 200 - 499 mg/dL Very High > or = 500 mg/dL Laboratory - Chemistry and C hemistry - challengeOrdered By: Dewey Packer on 10-14-2023 Cholesterol in HDL [Mass/Vol] 54 mg/dL >40 [facility] Comment on above: The drugs N-Acetylcy steine and Metamizole may falsely depress this assay. Reference Range HDL <40 mg/dL Low HDL Cholesterol HDL >or= 60 mg/dL High HDL Cholesterol Cholesterol in LDL [Mass/Vol] 112 mg/dL 0-130 [facility] CO2 [Moles/Vol] 28.0 mmol/L 21.0-32.0 [facility] Urea nitrogen/Creatinine [Mass ratio] 12.4 mg/mg 10-20 [facility] No Panel InformationOrdered By: Dewey Packer on 10-14-2023 Estimated GFR (MDRD) Amer 101 mL/min >60 [facility] Comment on above: GFR Calc Estimated GFR (MDRD) Non-Af Amer 83 mL/min >60 [facility] Comment on above: Non- GFR Calc VLDL Cholesterol 20 mg/dL 5-40 [facility] Serum or plasma calcium john urement (mass/volume)Ordered By: Dewey Packer on 10-14-2023 Calcium [Mass/Vol] 9.5 mg/dL 8.5-10.1 [facility] Serum or plasma creatinine m easurement (mass/volume)Ordered By: Dewey Packer on 10-14-2023 Creatinine [Mass/Vol] 0.81 mg/dL 0.55-1.02 [facility] Comment on above: The validity of the calculated GFR & GFRAA in patients over 70 years has not been determined. Clinical correlation is essential. Serum or plasma urea nitroge n measurement (mass/volume)Ordered By: Dewey Packer on 10-14-2023 Urea nitrogen [Mass/Vol] 10 mg/dL 7-18 [facility] Thin prep Papanicolaou smear with manual screeningOrdered By: Dewey Packer on 10-14-2023 Thin prep Papanicolaou smear with manual screening 6 5-15 [facility] JOVAN SCREENING W [facility] 07-30 [facility] Cervical or vagninal specime n microscopic examination by cytology stain (reported ason 04-25-2022 Cytology report Cyto stain Doc (Cvx/Vag) Comment . [facility] Work Phone: Comment on above: The Pap smear is a s creening test designed to aid in thedetection of premalignant and malignant conditions of theuterine cervix. It is not a diagnostic procedure andshould not be used as the sole means of detecting cervicalcancer. Both false-positive and false-negative reports dooccur. Detection in cervical specim en of any of human papilloma virus (HPV) 16, 18, 31, 33,on 04-25-2022 HPV 16+18+31+33+35+39+45+5 1+52+56+58+59+66+68 DNA Probe+sig amp Ql (Cvx) Negative Negative [facility] Work Phone: Comment on above: This nucleic acid am plification test detects fourteen high- risk HPV types (16,18,31,33,35,39,45,51,52,56,58,59,66,68)without differentiation.Performed at: - [facility] [id number] Director: Katty Mcneal MD, Phone: [phone] at: =G - [facility] [id number] Director: Katty Mcneal MD, Phone: [phone] Laboratory - Cytologyon 04-09 Surface Lay Out Technician Cyto stain Nom (Cvx/Vag) [ID] Comment . [facility] Work Phone: Comment on above: Linda Thomas, Cyto technologist (ASCP) Laboratory - Miscellaneous t estson 04-25-2022 Service comment (Unsp spec) [Interp] Comment . [facility] Work Phone: Comment on above: This liquid based Th inPrep(R) pap test was screened withthe use of an image guided system. Service comment (Unsp spec) [Interp] . . [facility] Work Phone: No Panel Informationon 04-25 Pathology report final diagnosis Narrative Comment . [facility] Work Phone: Comment on above: NEGATIVE FOR INTRAEP ITHELIAL LESION OR MALIGNANCY. Vital Signs Date Time Vital Sign Value Performing Clinician Jose Guadalupe rose 03-24-2025 17:21-0400 Body height 160.[address] Yessy Molina MD Work Phone: [facility] 03-24-2025 17:21-0400 Body mass index (BMI) [Ratio] 31.6 kg/m2 Dr. Yessy Molina MD Work Phone: [facility] 03-24-2025 17:21-0400 Body temperature 99 [degF] Dr. Yessy Molina MD Work Phone: [facility] 03-24-2025 17:21-0400 Body weight 81.[address] Yessy Molina MD Work Phone: [facility] 03-24-2025 17:21-0400 Diastolic blood pressure 92 mm[Hg] Dr. Yessy Molina MD Work Phone: [facility] 03-24-2025 17:21-0400 Heart rate 76 /min Dr. Yessy Molina MD Work Phone: [facility] 03-24-2025 17:21-0400 Respiratory rate 16 /min Dr. Yessy Molina MD Work Phone: [facility] 03-24-2025 17:21-0400 SaO2% (BldA) [Mass fraction] 97 % Dr. Yessy Molina MD Work Phone: [facility] 03-24-2025 17:21-0400 Systolic blood pressure 130 mm[Hg] Dr. Yessy Molina MD Work Phone: [facility] 12-16-2024 16:19-0400 Body mass index (BMI) [Ratio] 31.8 kg/m2 Dr. Yessy Molina MD Work Phone: [facility] 12-16-2024 16:19-0400 Body temperature 97.4 [degF] Dr. Yessy Molina MD Work Phone: [facility] 12-16-2024 16:19-0400 Body weight 81.[address] Yessy Molina MD Work Phone: [facility] 12-16-2024 16:19-0400 Diastolic blood pressure 100 mm[Hg] Dr. Yessy Molina MD Work Phone: [facility] 12-16-2024 16:19-0400 Heart rate 63 /min Dr. Yessy Molina MD Work Phone: [facility] 12-16-2024 16:19-0400 Respiratory rate 14 /min Dr. Yessy Molina MD Work Phone: [facility] 12-16-2024 16:19-0400 SaO2% (BldA) [Mass fraction] 97 % Dr. Yessy Molina MD Work Phone: [facility] 12-16-2024 16:19-0400 Systolic blood pressure 142 mm[Hg] Dr. Yessy Molina MD Work Phone: [facility] 08-04-2024 06:55-0500 Body height 160 cm Shelly Mariya DRY CLEANER APPRENTICE.CONFIDENTIAL SECRETARY Work Phone: [facility] 08-04-2024 06:55-0500 Body mass index (BMI) [Ratio] 31 kg/m2 Shelly Mariya DRY CLEANER APPRENTICE.CONFIDENTIAL SECRETARY Work Phone: [facility] 08-04-2024 06:55-0500 Body weight 79.38 kg Shelly [place] DRY CLEANER APPRENTICE.CONFIDENTIAL SECRETARY Work Phone: [facility] 08-04-2024 06:55-0500 Diastolic blood pressure 74 mm[Hg] Shelly Mariya DRY CLEANER APPRENTICE.CONFIDENTIAL SECRETARY Work Phone: [facility] 08-04-2024 06:55-0500 Systolic blood pressure 126 mm[Hg] Shelly Mariya DRY CLEANER APPRENTICE.CONFIDENTIAL SECRETARY Work Phone: [facility] 07-29-2023 13:57-0500 Body height 160 cm Shelly Mariya DRY CLEANER APPRENTICE.CONFIDENTIAL SECRETARY Work Phone: [facility] 07-29-2023 13:57-0500 Body weight 80.29 kg Shelly Mariya DRY CLEANER APPRENTICE.CONFIDENTIAL SECRETARY Work Phone: [facility] 07-29-2023 13:57-0500 Diastolic blood pressure 102 mm[Hg] Shelly [place] DRY CLEANER APPRENTICE.CONFIDENTIAL SECRETARY Work Phone: [facility] 07-29-2023 13:57-0500 Systolic blood pressure 158 mm[Hg] Shelly Meraz APRN.CONFIDENTIAL SECRETARY Work Phone: [facility] Encounters Encounter Date Encounter Type Care Provider Facility Start: 03-24-2025 End: 03-24-[address] Yessy Molina MD -[facility] Work Phone: Start: 03-24-2025 End: 03-24-[address] Yessy Molina MD Work Phone: -[facility] Start: 12-16-2024 End: 12-16-[address] Yessy Molina MD -[facility] Work Phone: Start: 12-16-2024 End: 12-16-2024 ambulatory Yessy Molina Facility:[facility] Start: 10-09-2024 ambulatory [facility] Start: 09-17-[address] Alma Molina MD Work Phone: [facility] Start: 09-17-2024 End: 09-17-2024 ambulatory Maximeestela Molina Facility:[facility] Start: 08-31-2024 End: 08-31-2024 [facility] Start: 08-26-2024 End: 08-26-2024 ambulatory DEWEY PACKER Facility:[facility] Start: 08-26-2024 Encounter for gynecological examination (general) (routine) without abnormal findings DEWEY PACKER [facility] Start: 08-26-2024 End: 08-26-2024 Patient encounter status [facility] Start: 08-26-2024 End: 08-26-2024 Subsequent hospital visit by physician Screen Mammo [facility]amm[facility] Comment on above: Encounter for gyneco logical examination (general) (routine) without abnormal findings [Z01.419] Start: 08-04-2024 End: 08-04-2024 Telephone encounter Shelly Meraz APRN.CONFIDENTIAL SECRETARY Work Phone: [address] [place] [address] Comment on above: Orders Start: 08-04-2024 End: 08-04-2024 ambulatory DEWEY PACKER Facility:[facility] Start: 08-04-2024 End: 08-04-2024 Patient encounter procedure Shelly Meraz DRY CLEANER APPRENTICE.CONFIDENTIAL SECRETARY Work Phone: OB/Gynecology Comment on above: Encounter for gyneco logical examination (general) (routine) without abnormal findings (Primary Dx); Encounter for screening mammogram for breast cancer; Dense breast tissue Start: 08-04-2024 End: 08-04-2024 Patient encounter status Shelly Meraz DRY CLEANER APPRENTICE.CONFIDENTIAL SECRETARY Work Phone: [facility] Start: 07-22-2024 End: 07-22-2024 ambulatory [facility] Facility:[facility] Start: 07-22-2024 End: 07-22-2024 ambulatory [facility] Facility:[facility] Start: 07-08-2024 End: 07-09-2024 ambulatory [facility] Facility:[facility] Start: 07-08-2024 End: 07-08-2024 ambulatory [facility] Facility:[facility] Start: 06-29-2024 End: 06-29-2024 [facility]ulatory [facility] Start: 06-23-2024 End: 06-23-2024 ambulatory Dewey Packer Facility:[facility] Start: 06-23-2024 End: 06-23-2024 ambulatory Dewey Packer Facility:[facility] Start: 04-15-2024 End: 04-15-2024 [facility] Start: 10-14-2023 End: 10-14-2023 ambulatory [facility] Work Phone: Start: 10-14-2023 End: 10-14-2023 Patient encounter procedure [facility] Start: 08-12-2023 Telephone encounter Shelly mckinley DRY CLEANER APPRENTICE.CONFIDENTIAL SECRETARY Work Phone: OB/Gynecology Comment on above: Orders Start: 08-10-2023 Documentation procedure Mammog omar Coordinator [facility] Start: 08-10-2023 Letter encounter Mammography Coordinator [facility] Department Start: 07-31-2023 Documentation procedure Mammog omar Coordinator [facility] Start: 07-31-2023 Letter encounter Mammography Coordinator [facility] Department Start: 07-31-2023 Telephone encounter Shelly mckinley APRN.CNP Work Phone: OB/Gynecology Comment on above: Orders Mammogram Result Eduardo l Back Start: 07-30-2023 End: 07-30-2023 Patient encounter status [facility] Start: 07-30-2023 End: 07-30-2023 Subsequent hospital visit by physician Screen Mammo [facility] W[facility] Mammogram Comment on above: Encounter for gyneco logical examination (general) (routine) without abnormal findings [Z01.419] Start: 07-29-2023 End: 07-29-2023 Patient encounter procedure Shelly Meraz APRN.CNP Work Phone: OB/Gynecology Comment on above: Encounter for gyneco logical examination (general) (routine) without abnormal findings (Primary Dx); Screening for cervical cancer; Encounter for screening for human papillomavirus (HPV); Encounter for screening mammogram for breast cancer Start: 07-29-2023 End: 07-29-2023 Patient encounter status Shelly Meraz APRN.CNP Work Phone: [facility] Start: 05-03-2022 End: 05-03-2022 ambulatory [facility] Work Phone: Start: 05-03-2022 End: 05-03-2022 Patient encounter procedure [facility]-Outpatient Breast Imaging Start: 04-25-2022 End: 04-25-2022 Patient encounter procedure [facility]-Laboratory, Specimen Procedures Date Procedure Procedure Detail Performing Clinician Start: 08-26-2024 Screening digital br east tomosynthesis bi Shelly Meraz APRN.CNP Work Phone: Start: 07-30-2023 Screening digital br east tomosynthesis bi Shelly Meraz APRN.CNP Work Phone: Start: 05-03-2022 Bilateral mammography Start: 05-03-2022 End: 05-03-2022 Ultrasonography of breast Plan of Treatment Date Care Activity Detail Author Start: 07-29-2028 HPV Testing HPV Testing [facility] Start: 07-29-2028 Pap Testing Pap Testing [facility] Start: 07-29-2028 Screening for malign ant neoplasm of cervix Cervical Cancer Screening [facility] Start: 02-08-2028 Urine microalbumin profile DTaP,Tdap,Td Vaccine (8 - Td or Tdap) [facility] Start: 08-26-2025 Screening for malign ant neoplasm of breast Mammogram Screening [facility] Start: 08-10-2025 End: 08-10-2025 Patient encounter procedure 08/10/2025 7:00 AM EST Office Visit OB/Gynecology [address] [place], [place] [id number] Shelly Meraz APRN.CONFIDENTIAL SECRETARY [address] [place] [address] Annual OB/Gynecology Comment on above: Annual Start: 08-04-2025 BP Controlled (<130/80) BP Controlle d (<130/80) [facility] Start: 08-04-2025 End: 09-03-2025 DBT Breast - bilateral screening JOVAN SCREENING [facility] Routine Encounter for gynecological examination (general) (routine) without abnormal findings Encounter for screening mammogram for breast cancer Dense breast tissue Expected: 08/04/2025 (Approximate), Expires: 09/03/2025 [facility] Work Phone: Comment on above: Expected: 08/04/2025 (Approximate), Expires: 09/03/2025 Start: 08-26-2024 End: 08-26-2024 Patient encounter procedure 08/26/2024 7:10 AM EST Appointment [facility] [address] [facility] [place], [place] [id number] Encounter for gynecological examination (general) (routine) without abnormal findings [Z01.419]; Encounter for screening mammogram for breast cancer [Z12.31]; Dense breast tissue [R92.30] Mammogram Comment on above: Encounter for gyneco logical examination (general) (routine) without abnormal findings [Z01.419]; Encounter for screening mammogram for breast cancer [Z12.31]; Dense breast tissue [R92.30] Start: 07-30-2024 Mammography Mammogram Screening [facility] Start: 07-30-2024 Screening for malign ant neoplasm of breast Mammogram Screening [facility] Start: 05-10-2024 Covid-19 Vaccine ( season) Covid-19 Vaccine ( season) [facility] Start: 05-10-2024 Influenza vaccination Influenza Vacc ine (#1) [facility] Start: 05-10-2023 Influenza vaccination Influenza Vacc ine (#1) [facility] Start: 2023 Mammography Mammogram Screening [facility] Start: 09-09-2022 Depression Assessment Depression Ass essment [facility] Start: 04-20-2019 HPV Testing HPV Testing [facility] Start: 04-20-2019 Pap Testing Pap Testing [facility] Start: 2001 Annual PCP Team Poker Manager estrellita Disease Visit Annual PCP Team Chronic Disease Visit [facility] Start: 2001 Anxiety Screening Anxiety Screening [facility] Start: 2001 BP Controlled (<130/80) BP Controlle d (<130/80) [facility] Start: 2001 Depression Screening Depression Scre ening [facility] Start: 2001 Hepatitis C Screening Hepatitis C [facility] Start: 2001 Hepatitis C screening Hepatitis C [facility] Start: 2001 HIV Screening HIV Screening [facility] Start: 2001 HIV screening HIV Screening [facility] Start: 1983 Covid-19 Vaccine (#1) Covid-19 Vacci ne (#1) [facility] End: 08-29-2024 JOVAN DIAGNOSTIC LEFT JOVAN DIAGNOSTIC LEFT Radiology Routine Abnormal mammogram 1 Occurrences starting 07/31/2023 until 08/29/2024 [facility] Work Phone: Comment on above: 1 Occurrences starti ng 07/31/2023 until 08/29/2024 End: 09-10-2024 JOVAN DIAGNOSTIC LEFT JOVAN DIAGNOSTIC LEFT Radiology Routine Abnormal mammogram 1 Occurrences starting 08/12/2023 until 09/10/2024 [facility] Work Phone: Comment on above: 1 Occurrences starti ng 08/12/2023 until 09/10/2024 End: 08-27-2024 [facility] Routine Encounter for gynecological examination (general) (routine) without abnormal findings Encounter for screening mammogram for breast cancer 1 Occurrences starting 07/29/2023 until 08/27/2024 [facility] Work Phone: Comment on above: 1 Occurrences starti ng 07/29/2023 until 08/27/2024 PAP TEST PAP TEST Lab [facility] Encounter for gynecological examination (general) (routine) without abnormal findings Screening for cervical cancer Encounter for screening for human papillomavirus (HPV) 07/29/2023 2:50 PM EST [facility] Work Phone: End: 08-29-2024 US BREAST LTD LEFT US BREAST LTD LEFT Radiology Routine Abnormal mammogram 1 Occurrences starting 07/31/2023 until 08/29/2024 [facility] Work Phone: Comment on above: 1 Occurrences starti ng 07/31/2023 until 08/29/2024 End: 09-10-2024 US BREAST LTD LEFT US BREAST LTD LEFT Radiology Routine Abnormal mammogram 1 Occurrences starting 08/12/2023 until 09/10/2024 [facility] Work Phone: Comment on above: 1 Occurrences starti ng 08/12/2023 until 09/10/2024 [facility] Immunizations Immunization Date Immunization Notes Care Provider Lisa milligan 08-18-2016 influenza, seasonal, injectable Shelly [place] DRY CLEANER APPRENTICE.CONFIDENTIAL SECRETARY Work Phone: [facility] 08-18-2016 influenza virus vacc ine, unspecified formulation Shelly [place] DRY CLEANER APPRENTICE.CONFIDENTIAL SECRETARY Work Phone: [facility] 06-28-2014 influenza, seasonal, injectable Shelly [place] DRY CLEANER APPRENTICE.CONFIDENTIAL SECRETARY Work Phone: [facility] 02-06-2013 tetanus toxoid, redu corinne diphtheria toxoid, and acellular pertussis vaccine, adsorbed Shelly Mariya DRY CLEANER APPRENTICE.CONFIDENTIAL SECRETARY Work Phone: [facility] 11-08-1997 hepatitis B vaccine, pediatric or pediatric/adolescent dosage Shelly Mariya DRY CLEANER APPRENTICE.CONFIDENTIAL SECRETARY Work Phone: [facility] 04-29-1997 hepatitis B vaccine, pediatric or pediatric/adolescent dosage Shelly Mariya DRY CLEANER APPRENTICE.CONFIDENTIAL SECRETARY Work Phone: [facility] 03-30-1997 hepatitis B vaccine, pediatric or pediatric/adolescent dosage Shelly Mariya DRY CLEANER APPRENTICE.CONFIDENTIAL SECRETARY Work Phone: [facility] 02-25-1995 measles, mumps and rubella virus vaccine Shelly [place] DRY CLEANER APPRENTICE.CONFIDENTIAL SECRETARY Work Phone: [facility] 01-31-1988 diphtheria, tetanus toxoids and pertussis vaccine Shelly Mariya DRY CLEANER APPRENTICE.CONFIDENTIAL SECRETARY Work Phone: [facility] 06-09-1985 measles, mumps and rubella virus vaccine Shelly [place] DRY CLEANER APPRENTICE.CONFIDENTIAL SECRETARY Work Phone: [facility] 11-17-1984 diphtheria, tetanus toxoids and pertussis vaccine Shelly Mariya DRY CLEANER APPRENTICE.CONFIDENTIAL SECRETARY Work Phone: [facility] 11-17-1984 trivalent poliovirus vaccine, live, oral Shelly Mariya DRY CLEANER APPRENTICE.CONFIDENTIAL SECRETARY Work Phone: [facility] 1983 diphtheria, tetanus toxoids and pertussis vaccine Shelly [place] DRY CLEANER APPRENTICE.CONFIDENTIAL SECRETARY Work Phone: [facility] 1983 diphtheria, tetanus toxoids and pertussis vaccine Shelly Mariya DRY CLEANER APPRENTICE.CONFIDENTIAL SECRETARY Work Phone: [facility] 1983 trivalent poliovirus vaccine, live, oral Shelly Mariya DRY CLEANER APPRENTICE.CONFIDENTIAL SECRETARY Work Phone: [facility] 1983 diphtheria, tetanus toxoids and pertussis vaccine Shelly Mariya DRY CLEANER APPRENTICE.CONFIDENTIAL SECRETARY Work Phone: [facility] 1983 trivalent poliovirus vaccine, live, oral Shelly Mariya DRY CLEANER APPRENTICE.CONFIDENTIAL SECRETARY Work Phone: [facility] 1983 trivalent poliovirus vaccine, live, oral Shelly Mariya DRY CLEANER APPRENTICE.CONFIDENTIAL SECRETARY Work Phone: [facility] Payers Date Payer Category Payer Self-pay [id number] 2023 Unknown MMO MMO [employer] PPO [id number] 2023-Present [phone] [address] [place] [address] PPO [id number] 2023 Unknown [id number] Unknown [facility] [id number] Unknown [facility] [id number] Unknown [id number] Unknown [id number] Unknown [id number] Unknown [id number] Unknown [id number] [id number] Unknown [id number] Unknown [id number] [id number] Unknown [id number] [id number] Unknown [id number] [id number] Unknown [id number] 2.16.840.1.167847.3.579.2.462 Unknown [id number] [id number] Unknown [id number] [id number] Unknown [id number] [id number] Unknown [id number] Social History Date Type Detail Facility Start: 03-28-2017 End: 01-29-2023 Tobacco smoking status SDIS Unknown if ever smoked [facility] Start: 1985 Sex Assigned At Female [facility] Start: 03-05-2012 End: 09-17-2024 Tobacco smoking status SDIS Never smoked tobacco [facility] Start: 03-05-2012 Tobacco use and exposure Smokeless tobacco non-user [facility] Start: 07-29-2023 End: 08-04-2024 Alcohol intake Current drinker of alcohol (finding) [facility] Start: 07-29-2023 End: 08-04-2024 History of Social function [facility] Start: 07-29-2023 End: 08-04-2024 Tobacco use panel [facility] National Score (1-100), lower number is lower risk 42 [facility] Start: 1985 Sex Assigned At Not on file [facility] Clinical Notes 02-17-2014 to 12-16-2024 Note Date & Type Note Facility 12-16-2024 Evaluation note Diagnosis Onset Date Resolution Anxiety chronic December 16 4:12pm Hypertension chronic December 16 025 4:12pm [facility] Work Phone: 1(525) 868-788912-18-2024 History of Present illness Narrative* Onur Lyle Mammo Tech - 08/26/2024 7:10 AM EST Radiology Service Progress Note PATIENT NAME: Yolis VARELA DATE OF SERVICE: August 26, 2024 TIME: 7:11 AM PATIENT IDENTITY VERIFICATION COMPLETED USING TWO (2) IDENTIFIERS: Name and Date of confirmedby patient verbally. FALL SCREENING: Has the patient had 2 falls in the last year or 1 fall with injury or currently using an Ambulatory Assistive Device (Walker, Cane, Wheelchair, Crutches, etc.)? No PATIENT GENDER DATA: Female. status: : No status: NO. PATIENT RELEVANT IMPLANT DATA REVIEWED: Not Applicable PATIENT PRESENTS WITH AN IMPLANTABLE OR ATTACHED DATA CAPTURE CLERK: No RADIOLOGY DEPARTMENT: Mammography PERIPHERAL IV DATA: Not applicable SIGNED BY: Benjamin Zavala August 26, 2024 7:11 AM documented in this encounterOhio[facility]12-[facility]-2024 NoteHNO ID: [id number] Author: ONUR LYLE Mammo Tech Service: ? Author Type: Operations And Intelligence Assistant Type: Progress Notes Filed: 08/26/2024 07:11 Note Text: Radiology Service Progress Note PATIENT NAME: Yolis VARELA DATE OF SERVICE: August 26, 2024 TIME: 7:11 AM PATIENT IDENTITY VERIFICATION COMPLETED USING TWO (2) IDENTIFIERS: Name and Date of confirmed by patient verbally. FALL SCREENING: Has the patient had 2 falls in the last year or 1 fall with injury or currently using an Ambulatory Assistive Device (Walker, Cane, Wheelchair, Crutches, etc.)? No PATIENT GENDER DATA: Female. status: : No status: NO. PATIENT RELEVANT IMPLANT DATA REVIEWED: Not Applicable PATIENT PRESENTS WITH AN IMPLANTABLE OR ATTACHED DATA CAPTURE CLERK: No RADIOLOGY DEPARTMENT: Mammography PERIPHERAL IV DATA: Not applicable SIGNED BY: Benjamin Zavala August 26, 2024 7:11 [facility]11-26-2024 Telephone encounter Note* Telephone Encounter - Jenniffer Lux RN - 08/04/2024 8:29 AM EST Linked order to appt. Jenniffer Lux RN [facility]11-26-2024 Miscellaneous Notes* Telephone Encounter - Jenniffer Lux RN - 08/04/2024 8:29 AM EST Linked order to appt. Jenniffer Lux RN * Telephone Encounter - Shelly Meraz APRN.CNP - 08/04/2024 8:21 AM EST Already filed this morning. Shelly Meraz APRN.CNP * Telephone Encounter - Jenniffer Lux RN - 08/04/2024 8:16 AM EST Mammogram order pended. Please file and will link to scheduled mammogram appt. Jenniffer Lux RN * Telephone Encounter - Violeta Culp - 08/04/2024 7:29 AM EST Patient is scheduled for Screening mammogram with [facility] 08/26/2024. I saw the order for next year but patient's last Mammo was 07/30/2023. [address] please place another Mammogram order for this year aswell? TRENA aEston documented in this encounterOhiohealth [facility]11-26-2024 Telephone encounter Note * Telephone Encounter - Shelly Meraz APRN.CNP - 08/04/2024 8:21 AM EST Already filed this morning. Shelly Meraz APRN.CNP [facility] Work Phone: [phone] Telephone encounter Note* Telephone Encounter - Jenniffer Lux RN - 08/04/2024 8:16 AM EST Mammogram order pended. Please file and will link to scheduled mammogram appt. Jenniffer Lux RN [facility]11-26-2024 Telephone encounter Note* Telephone Encounter - Violeta Culp - 08/04/2024 7:29 AM EST Patient is scheduled for Screening mammogram with [facility] 08/26/2024. I saw the order for next year but patient's last Mammo was 07/30/[address]23. [address] please place another Mammogram order for this year aswell? TRENA Easton [facility]11-26-2024 NoteHNO ID: [id number] Author: SHELLY MERAZ APRN.CONFIDENTIAL SECRETARY Service: ? Author Type: Nurse Practitioner Type: Progress Notes Filed: 08/04/2024 07:41 Note Text: Yolis is a 39 year old who presents for an annual gynecologic exam without complaints. Menses: cycles every 25-30 days and 4-5 days of flow. Contraception: tubal sterilization HPV vaccine: No Last Pap: 08/10/2023 normal HPV: 08/02/2023 negative History of abnormal pap: No Last mammogram: 2022 asymmetry - needed additional imaging - doesn't look like she got the additional imaging Sexually active: Yes Pain with intercourse: No Postcoital bleeding: No OB History T1 L2 SAB2 IAB0 Ectopic0 Multiple0 Live Births2 Cloth Coverer History LMP: 07/23/2024 (Exact Date), Having periods Age at Menarche: Age at First : Age at Menopause: Cloth Coverer History Comments: Sexual Activity: Yes; Male Contraception: [...] Grandmother Lipids Paternal Grandmother Heart Paternal Grandfather MT Hypertension Paternal Grandfather Crohn's Disease Son Lipids Paternal Aunt Hypertension Paternal Aunt Hypertension Paternal Uncle Breast Cancer Other MATERNAL CANCER SOCIAL HISTORY Social History Tobacco Use Smoking status: Never Smokeless tobacco: Never Vaping Use Vaping status: Never Used Substance Use Topics Alcohol use: Yes Comment: RARELY BUT NOT WHILE Drug use: No REVIEW OF SYSTEMS Abdomen: No abdominal pain, nausea, vomiting, diarrhea, or constipation. No bloating, early satiety, indigestion, or increased flatulence. Bladder: No dysuria, gross hematuria, urinary frequency, urinary urgency, or incontinence. Breast: No breast lumps, nipple d/c, overlying skin changes, redness or skin retraction. Allergies and current medication updated:Yes SENSITIVE EXAM: The sensitive examination was discussed with the Patient or Patient's Authorized Rn Bone Marrow Transplant. As applicable, any other physician, advance practice provider, medical student, or other health professional student that will be observing or involved in the sensitive examination for educational or training purposes was discussed with the Patient or Authorized Rn Bone Marrow Transplant. The Patient or Authorized Rn Bone Marrow Transplant has agreed to proceed with the sensitive examination. (Sensitive examination includes inspection and/or palpation of the breasts, pelvis, prostate and anorectal regions). EXAM: BP 126/74 Ht 5' 3" (1.60m) Wt 175 lb (79.4kg) LMP 07/23/2024 BMI 31.01 kg/(m2). GENERAL: pleasant, female in no apparent [...] external genitalia normal, normal Bartholin's glands, urethra, [place]'s glands, no vulvar lesions, no cervical lesions, good vaginal support, physiologic discharge present, normal appearing perineal body and perianal region BIMANUAL: uterus normal size, shape and consistency, no adnexal masses, and non-tender RECTOVAGINAL: deferred. NEURO: alert and oriented x3,exam grossly non-focal EXTREMITIES: normal ASSESSMENT/PLAN: 1) Health maintenance: Pap/HPV up to date. Mammogram ordered. Nutrition, exercise and routine health maintenance exams reviewed. Calcium/Vitamin D supplementation information provided. 2) Contraception: tubal sterilization. Contraceptive options reviewed and information provided. 3) STD screening: Declined STD check. 4) Follow up one year or sooner as needed Shelly Meraz APRN.NAYAGood [facility]11-26-2024 History of Present illness Narrative* Shelly Meraz APRN.NAYA - 08/04/2024 6:53 AM EST Yolis is a 39 year old who presents for an annual gynecologic exam without complaints. Menses: cycles every 25-30 days and 4-5 days of flow. Contraception: tubal sterilization HPV vaccine: No Last Pap: 08/10/2023 normal HPV: 08/02/2023 negative History of abnormal pap: No Last mammogram: 2022 asymmetry - needed additional imaging - doesn't look like she got the additional imaging Sexually active: Yes Pain with intercourse: No Postcoital bleeding: No OB History T1 L2 SAB2 IAB0 Ectopic0 Multiple0 Live Births2 Cloth Coverer History LMP: 07/23/2024 (Exact Date), Having periods Age at Menarche: Age at First : Age at Menopause: Cloth Coverer History Comments: Sexual Activity: Yes; Male Contraception: [...] Grandmother Lipids Paternal Grandmother Heart Paternal Grandfather MT Hypertension Paternal Grandfather Crohn's Disease Son Lipids Paternal Aunt Hypertension Paternal Aunt Hypertension Paternal Uncle Breast Cancer Other MATERNAL CANCER SOCIAL HISTORY Social History Tobacco Use Smoking status: Never Smokeless tobacco: Never Vaping Use Vaping status: Never Used Substance Use Topics Alcohol use: Yes Comment: RARELY BUT NOT WHILE Drug use: No REVIEW OF SYSTEMS Abdomen: No abdominal pain, nausea, vomiting, diarrhea, or constipation. No bloating, early satiety, indigestion, or increased flatulence. Bladder: No dysuria, gross hematuria, urinary frequency, urinary urgency, or incontinence. Breast: No breast lumps, nipple d/c, overlying skin changes, redness or skin retraction. Allergies and current medication updated:Yes SENSITIVE EXAM: The sensitive examination was discussed with the Patient or Patient's Authorized Rn Bone Marrow Transplant. As applicable, any other physician, advance practice provider, medical student, or other health professional student that will be observing or involved in the sensitive examination for educational or training purposes was discussed with the Patient or Authorized Rn Bone Marrow Transplant. The Patient or Authorized Rn Bone Marrow Transplant has agreed to proceed with the sensitive examination. (Sensitive examination includes inspection and/or palpation of the breasts, pelvis, prostate and anorectal regions). EXAM: BP 126/74 Ht 5' 3" (1.60m) Wt 175 lb (79.4kg) LMP 07/23/2024 BMI 31.01 kg/(m^2). GENERAL: pleasant, female in no apparent [...] external genitalia normal, normal Bartholin's glands, urethra, [place]'s glands, no vulvar lesions, no cervical lesions, good vaginal support, physiologic discharge present, normal appearing perineal body and perianal region BIMANUAL: uterus normal size, shape and consistency, no adnexal masses, and non-tender RECTOVAGINAL: deferred. NEURO: alert and oriented x3,exam grossly non-focal EXTREMITIES: normal ASSESSMENT/PLAN: 1) Health maintenance: Pap/HPV up to date. Mammogram ordered. Nutrition, exercise and routine health maintenance exams reviewed. Calcium/Vitamin D supplementation information provided. 2) Contraception: tubal sterilization. Contraceptive options reviewed and information provided. 3) STD screening: Declined STD check. 4) Follow up one year or sooner as needed Shelly Meraz APRN.CNP documented in this encounterOhiohealth [facility]12-02-2023 Miscellaneous Notes* Letter - Coordinator, Mammography - 08/10/2023 1:08 PM EST August 12, 2023 PID: [id number] Yolis Varela [address] [place] [address] Dear Ms. Varela, Your prior imaging studies [...] dense breast tissue in addition to other riskfactors. Early detection of cancer is very important. We also understand recommendations regarding breast cancer screening are controversial. Please discuss with your primary care provider which strategy is best for you and whether a mammogram is right for you. Your imaging studies and report will be kept on file at [facility] as part of your permanent medical record and are available for your continuing care. Thank you for allowing us to help in meeting your health care needs. Sincerely, Dr. Mattson Interpreting Radiologist [facility] (Normal Old Films compared) documented in this encounterOhiohealth [facility]11-22-2023 Miscellaneous Notes* Letter - Coordinator, Mammography - 07/31/2023 6:49 AM EST July 31, 2023 PID: [id number] Yolis [address]arela [address] [place] [address] Dear Ms. Varela, Your breast imaging exam 07/30/2023 showed a possible finding that may require additional imaging studies for a complete evaluation. However, we recognize you have prior imaging studies at facilitiesother than [facility], and would like the opportunity to compare [...] dense breast tissue in addition to other riskfactors. If/when your prior studies arrive, a final [...] and reports are kept on file at [facility] as part of your permanent medical record, and are available for your continuing care. If you have any questions or concerns, please call [phone]. Thank you for choosing [facility] for your imaging needs. Sincerely, Dr. Mattson Interpreting Radiologist [facility] (Old Films) documented in this encounterOhiohealth Arthur [facility]11-21-2023 History of Present illness Narrative* Musa Rodrigues Mammo Tech - 07/30/2023 8:50 AM EST Radiology Service Progress Note PATIENT NAME: Yolis VARELA DATE OF SERVICE: July 30, 2023 TIME: 8:40 AM PATIENT IDENTITY VERIFICATION COMPLETED USING TWO (2) IDENTIFIERS: Name and Date of confirmedby patient verbally. FALL SCREENING: Has the patient [...] 30, 2023 8:40 AM documented in this encounterOhiohealth 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 History LMP: 07/01/2023 (Exact Date), Having periods Age at Menarche: Age at First : Age at Menopause: Cloth Coverer History Comments: Sexual Activity: Yes; Male Contraception: [...] Grandmother Lipids Paternal Grandmother Heart Paternal Grandfather MT Hypertension Paternal Grandfather Crohn's Disease Son Lipids [...] medication updated:Yes EXAM: BP 158/102 Ht 5' 3" (1.60m) Wt 177 lb (80.3kg) LMP 07/01/2023 [...] external genitalia normal, normal Bartholin's glands, urethra, [place]'s glands, no vulvar lesions, no cervical lesions, [...] year or sooner as needed Shelly Meraz APRN.CONFIDENTIAL SECRETARY documented in this encounterOhiohealth Arthur [facility]08-17-2022 NotePap Smear Specimen AdequacyAugust 2021 12:00pmComment.Satisfactory for evaluation. Endocervical and/or squamous metaplasticcells (endocervical component)are present.[facility] INTERFACED A#[id number] Work Phone: Comment on above:Satisfactory for evaluation. Endocervical and/or squamous metaplasticcells (endocervical component)are present.02-17-2014 History of Past illness Narrative* Problem Noted Date Diagnosed Date Resolved Date Pilonidal cyst with abscess 02/17/2014 03/28/2017 Supervision of other normal 08/16/2006 02/09/2011 documented as of this encounter (statuses as of 07/30/2023) [facility] History of Past illness Narrative* Problem Noted Date Diagnosed Date Resolved Date Pilonidal cyst with abscess 02/17/2014 03/28/2017 Supervision of other normal 08/16/2006 02/09/2011 documented as of this encounter (statuses as of 07/31/2023) [facility] History of Past illness Narrative* Problem Noted Date Diagnosed Date Resolved Date Pilonidal cyst with abscess 02/17/2014 03/28/2017 Supervision of other normal 08/16/2006 02/09/2011 documented as of this encounter (statuses as of 07/31/2023) [facility] History of Past illness Narrative* Problem Noted Date Diagnosed Date Resolved Date Pilonidal cyst with abscess 02/17/2014 03/28/2017 Supervision of other normal 08/16/2006 02/09/2011 documented as of this encounter (statuses as of 07/31/2023) [facility] History of Past illness Narrative* Problem Noted Date Diagnosed Date Resolved Date Pilonidal cyst with abscess 02/17/2014 03/28/2017 Supervision of other normal 08/16/2006 02/09/2011 documented as of this encounter (statuses as of 08/02/2023) [facility] History of Past illness Narrative* Problem Noted Date Diagnosed Date Resolved Date Pilonidal cyst with abscess 02/17/2014 03/28/2017 Supervision of other normal 08/16/2006 02/09/2011 documented as of this encounter (statuses as of 08/12/2023) [facility] History of Past illness Narrative* Problem Noted Date Diagnosed Date Resolved Date Pilonidal cyst with abscess 02/17/2014 03/28/2017 Supervision of other normal 08/16/2006 02/09/2011 documented as of this encounter (statuses as of 08/13/2023) [facility] CenterEvalubayhealth [facility] noteNo assessment information availableWThe [facility] Work Phone: Evaluation note* Diagnosis Encounter for gynecological examination (general) (routine) without abnormal findings- Primary Screening for cervical cancer Screening for malignant neoplasm of the cervix Encounter for screening for human papillomavirus (HPV) Special screening examination for human papillomavirus (HPV) Encounter for screening mammogram for breast cancer [facility]* Diagnosis Encounter for gynecological examination (general) (routine) without abnormal findings Encounter for screening mammogram for breast cancer documented in this encounter [facility] note* Diagnosis Abnormal mammogram- Primary Abnormal mammogram, unspecified documented in this encounter [facility] note* Diagnosis Abnormal mammogram- Primary Abnormal mammogram, unspecified documented in this encounter [facility] note* Diagnosis Encounter for gynecological examination (general) (routine) without abnormal findings- Primary Encounter for screening mammogram for breast cancer Dense breast tissue documented in this encounter [facility] note* Diagnosis Breast screening- Primary Breast screening, unspecified documented in this encounter [facility] note* Diagnosis Encounter for gynecological examination (general) (routine) without abnormal findings Encounter for screening mammogram for breast cancer Dense breast tissue documented in this encounter [facility] for referral (narrative)* Diagnostic Procedure Only (Routine) - Authorized Specialty Diagnoses / Procedures Referred By Dee dugan Referred To Contact [facility] Diagnoses Encounter for gynecological examination (general) (routine) without abnormal findings Encounter for screening mammogram for breast cancer Procedures JOVAN SCREENING W DUKE SCREENING DIGITAL BREAST TOMOSYNTHESIS BI SCREENING MAMMOGRAPHY BI 2-VIEW BREAST INC CAD Shelly Meraz APRN.CONFIDENTIAL SECRETARY [address] [place] [address] [facility] [address] [address] Referral ID Status Reason Start Date Expiration Date Visits Requested Visits Authorized [id number] Authorized Auto-Generat ed Referral 3 08/27/2024 1 1 [facility] Diagnostic Procedure Only (Routine) - Pending Review Specialty Diagnoses / Procedures Referred By Dee dugan Referred To Contact [facility] Diagnoses Abnormal mammogram Procedures JOVAN DIAGNOSTIC LEFT DIAGNOSTIC MAMMOGRAPHY COMPUTER-AIDED DETCJ UNI Shelly Meraz APRN.CNP [address] [place] [address] [facility] [address] [place] [address] Referral ID Status Reason Start Date Expiration Date Visits Requested Visits Authorized [id number] Pending Review Auto-Generat ed Referral 3 08/29/2024 1 1 * Diagnostic Procedure Only (Routine) - Pending Review Specialty Diagnoses / Procedures Referred By Contac t Referred To Contact [facility] Diagnoses Abnormal mammogram Procedures US BREAST LTD LEFT US BREAST UNI REAL TIME WITH IMAGE LIMITED Shelly Meraz APRN.CONFIDENTIAL SECRETARY [address] [place] [address] [facility] [address] [place] [address] Referral ID Status Reason Start Date Expiration Date Visits Requested Visits Authorized [id number] Pending Review Auto-Generat ed Referral 3 08/29/2024 1 1 [facility] for referral (narrative)* Diagnostic Procedure Only (Routine) - Pending Review Specialty Diagnoses / Procedures Referred By Triciaac t Referred To Contact [facility] Diagnoses Abnormal mammogram Procedures US BREAST LTD LEFT US BREAST UNI REAL TIME WITH IMAGE LIMITED Shelly Meraz APRN.CONFIDENTIAL SECRETARY [address] [place] [address] [facility] [address] [place] [address] Referral ID Status Reason Start Date Expiration Date Visits Requested Visits Authorized [id number] Pending Review Auto-Generat ed Referral 08/12/2023 09/10/2024 1 1 * Diagnostic Procedure Only (Routine) - Pending Review Specialty Diagnoses / Procedures Referred By Contac t Referred To Contact [facility] Diagnoses Abnormal mammogram Procedures JOVAN DIAGNOSTIC LEFT DIAGNOSTIC MAMMOGRAPHY COMPUTER-AIDED DETCJ UNI Shelly Meraz APRN.CNP [address] [place] [address] [facility] [address] [place] [address] Referral ID Status Reason Start Date Expiration Date Visits Requested Visits Authorized [id number] Pending Review Auto-Generat ed Referral 08/12/2023 09/10/2024 1 1 [facility] Diagnostic Procedure Only (Routine) - Authorized Specialty Diagnoses / Procedures Referred By Dee t Referred To Contact [facility] Diagnoses Encounter for gynecological examination (general) (routine) without abnormal findings Encounter for screening mammogram for breast cancer Dense breast tissue Procedures JOVAN SCREENING W DUKE SCREENING DIGITAL BREAST TOMOSYNTHESIS BI SCREENING MAMMOGRAPHY BI 2-VIEW BREAST INC [facility] Shelly Meraz APRN.CNP [address] [place] [address] [facility] [address] [address] Referral ID Status Reason Start Date Expiration Date Visits Requested Visits Authorized [id number] Authorized Auto-Generat ed Referral 09/03/2025 1 1 [facility] Diagnostic Procedure Only (Routine) - Closed Specialty Diagnoses / Procedures Referred By Dee dugan Referred To Contact [facility] Diagnoses Encounter for gynecological examination (general) (routine) without abnormal findings Encounter for screening mammogram for breast cancer Dense breast tissue Procedures JOVAN SCREENING W DUKE SCREENING DIGITAL BREAST TOMOSYNTHESIS BI SCREENING MAMMOGRAPHY BI 2-VIEW BREAST INC [facility] Shelly Meraz APRN.CONFIDENTIAL SECRETARY [address] [place] [address] Br Imaging [address] [place] [address] Referral ID Status Reason Start Date Expiration Date V isits Requested Visits Authorized [id number] Closed Auto-Generate d Referral 08/20/2024 09/08/2024 1 1 [facility] ([facility]ative)No reason for referral information availableBloomington Medical Services Work Phone: [facility] Narrative* Diagnostic Procedure Only (Routine) - Closed Specialty Diagnoses / Procedures Referred By Contac t Referred To Contact [facility] Diagnoses Encounter for gynecological examination (general) (routine) without abnormal findings Encounter for screening mammogram for breast cancer Procedures JOVAN SCREENING W DUKE SCREENING DIGITAL BREAST TOMOSYNTHESIS BI SCREENING MAMMOGRAPHY BI 2-VIEW BREAST INC CAD [facility], [facility].CONFIDENTIAL SECRETARY [address] [place] [address] [facility] [address] [place] [id number] Referral ID Status Reason Start Date Expiration Date V isits Requested Visits Authorized [id number] Closed Auto-Generate d Referral 07/29/2023 08/27/2024 1 1 [facility] N[facility]ative* Diagnostic Procedure Only (Routine) - Closed Specialty Diagnoses / Procedures Referred By Dee t Referred To Contact [facility] Diagnoses Encounter for gynecological examination (general) (routine) without abnormal findings Encounter for screening mammogram for breast cancer Dense breast tissue Procedures JOVAN SCREENING W DUKE SCREENING DIGITAL BREAST TOMOSYNTHESIS BI SCREENING MAMMOGRAPHY BI 2-VIEW BREAST INC CAD [facility], [employer] CLE[employer]ER APPRENTICE.CONFIDENTIAL SECRETARY [address] [facility] [place] [address] [facility] [address] [place] [address] Referral ID Status Reason Start Date Expiration Date V isits Requested Visits Authorized [id number] Closed Auto-Generate d Referral 08/20/2024 09/08/2024 1 1 [facility] Chief Complaint and Reason for Visit Chief Complaint UNSPECIFIED LUMP IN LEFT BREAST Chief Complaint Admit Date 3 M FU December 16, 2024 4:12 pm 3 M FU March 24, 2025 5:16 pm Reason for Visit Admit Date Anxiety December 16, 2024 4:12 pm Hypertension December 16, 2024 4:12 pm Advance Directives No Advanced Directives Records Found Advance Directive Response Recorded Date/ Time Living Will No March 28, 2017 5:08am Power of Manager [place] No March 28 5:08am Advance Directive Response Recorded Date/ Time Living Will No January 28, 2023 1 0:32pm Power of Manager [place] No January 28, 2023 10:32pm Summary Purpose Family History No Family History Records Found Relationship Condition Age at Onset Recorded Date/T erika mother Acute Crohn's disease Unknown Hypertension Unknown Osteoporosis Unknown grandfather Diabetes mellitus Unknown Myocardial infarction Unknown Congestive heart failure Unknown Malignant neoplasm Unknown aunt Multiple sclerosis Unknown grandmother Atrial fibrillation Unknown Additional Source Comments Goals (unrecognized section and content) Goals may be documented in a n alternate sectionGoals may be documented in an alternate sectionGoals may be documented in an alternate section Source Comments (unrecognize d section and content) In the event this informatio n is protected by the Federal Confidentiality of Alcohol and Drug Abuse Patient Records regulations: The Federal rules restrict any use of the information to criminally investigate or prosecute any alcohol or drug abuse patient.[facility] Center[facility] the event this information is protected by the Federal Confidentiality of Alcohol and Drug Abuse Patient Records regulations: The Federal rules restrict any use of the information to criminally investigate or prosecute any alcohol or drug abuse patient.[facility] CenterIn the event this information is protected by the Federal Confidentiality of Alcohol and Drug Abuse Patient Records regulations: The Federal rules restrict any use of the information to criminally investigate or prosecute any alcohol or drug abuse patient.[facility] CenterIn the event this information is protected by the Federal Confidentiality of Alcohol and Drug Abuse Patient Records regulations: The Federal rules restrict any use of the information to criminally investigate or prosecute any alcohol or drug abuse patient.[facility] CenterIn the event this information is protected by the Federal Confidentiality of Alcohol and Drug Abuse Patient Records regulations: The Federal rules restrict any use of the information to criminally investigate or prosecute any alcohol or drug abuse patient.[facility] CenterIn the event this information is protected by the Federal Confidentiality of Alcohol and Drug Abuse Patient Records regulations: The Federal rules restrict any use of the information to criminally investigate or prosecute any alcohol or drug abuse patient.[facility] CenterIn the event this information is protected by the Federal Confidentiality of Alcohol and Drug Abuse Patient Records regulations: The Federal rules restrict any use of the information to criminally investigate or prosecute any alcohol or drug abuse patient.[facility] CenterIn the event this information is protected by the Federal Confidentiality of Alcohol and Drug Abuse Patient Records regulations: The Federal rules restrict any use of the information to criminally investigate or prosecute any alcohol or drug abuse patient.[facility] CenterIn the event this information is protected by the Federal Confidentiality of Alcohol and Drug Abuse Patient Records regulations: The Federal rules restrict any use of the information to criminally investigate or prosecute any alcohol or drug abuse patient.[facility] CenterIn the event this information is protected by the Federal Confidentiality of Alcohol and Drug Abuse Patient Records regulations: The Federal rules restrict any use of the information to criminally investigate or prosecute any alcohol or drug abuse patient.[facility] Reason for Visit (unrecogniz ed section and content) Reason Comments Yearly Exam Reason Comments Orders Reason Comments Mammogram Result Call Back Reason Comments Orders Care Teams (unrecognized sec tion and content) Radiographer Mammographer Relationship Specialty Start Date End Date Dewey Packer MD [address] [place] [id number] PCP - General Family Medicine 07/18/18 Radiographer Mammographer Relationship Specialty Start Date End Date Dewey Packer MD [address] [facility] [address] [place] [address] PCP - General Family Medicine 07/18/18 Radiographer Mammographer Relationship Specialty Start Date End Date Dewey Packer MD [address] [facility] [address] [place] [address] PCP - General Family Medicine 07/18/18 Radiographer Mammographer Relationship Specialty Start Date End Date Dewey Packer MD [address] [facility] [address] [place] [address] PCP - General Family Medicine 07/18/18 Radiographer Mammographer Relationship Specialty Start Date End Date Dewey Packer MD [address] [facility] [address] [place] [address] PCP - General Family Medicine 07/18/18 Radiographer Mammographer Relationship Specialty Start Date End Date Dewey Packer MD [address] [facility] [address] [place] [address] PCP - General Family Medicine 07/18/18 Team Status: Active Member Role Status Dates Dr. Dewey Packer MD Family Provider Active Dr. Dewey Packer MD Primary Care Provider Active Team Status: Inactive Member Role Status Dates Dr. Dewey Packer MD Primary Care Provider, Attending Provider Active Radiographer Mammographer Relationship Specialty Start Date End Date Dewey Packer MD [address] [facility] [address] [place] [address] PCP - General Family Medicine 07/18/18 Team Status: Active Member Role/Relationship Status Dates Dr. Yessy Molina MD Primary Care Provider Active Team Status: Inactive Member Role/Relationship Status Dates Dr. Yessy Molina MD Primary Care Provider Active Start: December 16, 2024 End: December 16, 2024 Dr. Yessy Molina MD Attending Provider Active Start: December 16, 2024 End: December 16, 2024 Dr. Yessy Molina MD Referring Provider Active Start: December 16, 2024 End: December 16, 2024 Team Status: Inactive Member Role/Relationship Status Dates Dr. Yessy Molina MD Primary Care Provider Active Start: March 24, 2025 End: March 24, 2025 Dr. Yessy Molina MD Attending Provider Active Start: March 24, 2025 End: March 24, 2025 Dr. Yessy Molina MD Referring Provider Active Start: March 24, 2025 End: March 24, 2025 INFORMATION SOURCE (unrecogn ized section and content) DATE CREATED AUTHOR 08/29/2024 [facility] DATE CREATED AUTHOR AUTHOR'S ORGANIZ ATION 03/28/2025 [facility] FOR RECORDS PERTAINING TO PATIENTS WHO [...] BE BASED ON THE PRIMARY CLINICAL RECORDS. [employer] provides no warranty or guarantee of the accuracy or completeness of information in this document.
[2025-06-24 12:13] LABS: Hematocrit 38.8 % (37-47); Hemoglobin 13.7 g/dL (12.0-15.0); Immature Granulocytes Count 0.020 X10^3/uL (0.0-0.0); Mean Corp Hgb Conc 35.3 g/dL (32-36); Mean Corpuscular Volume 88.2 fL (81-99); Mean Platelet Vol. 9.7 fl (6.2-12.0); NRBC Flagged by Analyzer 0 % (0-5); Platelet Count 271 K/mm3 (150-450); RBC Distribution Width CV 11.9 % (11.6-14.6); RBC Distribution Width SD 38.3 fl (35.1-43.9); Red Blood Count 4.40 M/mm3 (4.2-5.4); White Blood Count 7.1 K/mm3 (4.4-11.0)
[2025-06-24 12:59] LABS: PTHIN 24 pg/mL (11-61)
[2025-06-24 13:06] LABS: Free T3 3.0 pg/mL (2.18-3.98)
[2025-06-24 13:10] LABS: Cholesterol 225 mg/dL (<=200); Low Density Lipoprotein Calc. 150 mg/dL; Triglycerides 100 mg/dL; Very Low Density Lipoprotein 20 mg/dL (5-40); cholesterol:hdl ratio screen 4.10
[2025-06-24 13:32] LABS: AST(SGOT) 16 U/L (<=31); Alanine Aminotransfer ALT/SGPT 12 U/L (<=34); Albumin, Serum 4.5 g/dL (3.5-5.0); Alkaline Phosphatase 41 U/L (35-104); Anion Gap 11 (5-15); BUN 12 mg/dL (4-19); BUN/Creat Ratio 16.1 RATIO (10-20); Calcium,Total 9.4 mg/dL (7.6-11.0); Carbon Dioxide 24.9 mmol/L (21.0-32.0); Chloride 105 mmol/L (98-108); Globulin 3.1 g/dL (2.2-4.2); Glucose 87 mg/dL (70-99); Potassium 3.8 mmol/L (3.3-5.1)
== END | disposition home or self-care (01) ==
LOC: MTLAB 08:55
PROVIDERS: Nurse Practitioner Family; PCP Internal Medicine; Referring Provider Internal Medicine; Visit Provider Internal Medicine
DX: Z00.00 Encounter for general adult medical examination without abnormal findings (principal); E83.52 Hypercalcemia; R00.2 Palpitations; F41.9 Anxiety disorder, unspecified; I10 Essential (primary) hypertension
CPT/HCPCS: 36415; 80053; 80061; 83970; 84439; 84443; 84481; 85025